=== PATIENT | female | born 1995 | race Caucasian/White ===

== ENCOUNTER 2020-01-31 23:28 | Emergency (ER) | payer SELFPAY ==
[2020-01-31 23:57] VITALS: BP 115/72; PULSE 86; RESP 16; TEMP 36.6; O2SAT 100; BMI 21.9
--- NOTE | 2020-01-31 23:59 | ED_ITS ---
HPI - General Adult General: Chief complaint: Chest Pain Stated complaint: fast hr, cp Time Seen by Provider: 01/31/20 23:59 Source: patient Mode of arrival: ambulatory Limitations: no limitations History of Present Illness: HPI narrative: Patient comes in this evening for complaints of chest discomfort. Patient reports having a knot on her chest that is tender to touch. Patient appears anxious but in no acute distress. Patient appears well. Patient appears in mild pain. Associated symptoms: Reports chest pain Review of Systems General: Reports: 10 or more systems reviewed and unremarkable except in HPI and below Card: Reports: chest pain PFSH ED PFSH: Social History Smoking and tobacco status: current every day smoker Physical Exam Const: COMMON NORMALS: no apparent distress and oriented x3 GENERAL APPEARANCE: cooperative HENMT: COMMON NORMALS: normocephalic, TM's normal bilaterally and external nose normal HEAD & SCALP: normal to inspection and normocephalic NOSE: external nose normal TYMPANIC MEMBRANE: TM's normal bilaterally MOUTH: oral and palatal mucosa normal THROAT: posterior oropharynx normal Eye: GENERAL EYE: normal appearance of both eyes Neck/C-Spine: COMMON NORMALS: full ROM Lymph: LYMPHATIC: no lymphadenopathy noted Chest: CHEST: Yes tenderness (Along the sternal intercostal space of the third rib) Resp: COMMON NORMALS: normal respiratory effort EFFORT & INSPECTION: Yes able to speak in complete sentences Cardio: COMMON NORMALS: regular rate and regular rhythm RATE: regular rate RHYTHM: regular rhythm GI: COMMON NORMALS: non-tender : COMMON NORMALS: Yes no CVA tenderness BLADDER/KIDNEY EXAM: Yes no CVA tenderness Back/Pelvis: COMMON NORMALS: no CVA tenderness and thoracic and lumbar spine normal to inspection Extremity: COMMON NORMALS: normal to inspection Neuro: COMMON NORMALS: oriented x3 and moves all extremities Psych: COMMON NORMALS: mental status grossly normal and cooperative Skin: COMMON NORMALS: no rashes or lesions noted GENERAL SKIN EXAM: no rashes or lesions noted Course Vital Signs: Vital signs: Vital Signs Temperature 97.8 F 01/31/20 23:57 Pulse Rate 75 02/01/20 00:58 Respiratory Rate 18 02/01/20 00:58 Blood Pressure 100/76 02/01/20 00:58 Pulse Oximetry 99 02/01/20 00:58 MDM - General Adult MDM Narrative: Medical decision making narrative: Patient comes in today for complaints of left chest wall pain. Exam notes reproducible pain to the sternal intercostal space of the 3rd-4th rib. Lungs are clear to auscultation. Skin is warm and dry. Vital signs are normal. Differential diagnosis includes ACS, PE, pneumonia, intercostal pain. Chest x-ray was normal. Heart rate was regular. EKG was normal. Laboratory values noted no increase in white blood cell count or renal dysfunction. D-dimer was negative. hCG was negative. Patient was given a dose of Toradol for costochondritis pain and instructed to use Tylenol and ibuprofen otherwise for pain. Patient was placed to home and recommended follow-up with primary care. Patient reported understanding and agreed to plan. Lab Data: Labs: Lab Results 02/01/20 02/01/20 02/01/20 Range/Units 00:13 00:13 00:13 WBC 5.6 (4.0-10.0) 10^3/ uL RBC 4.23 (4.1-5.3) 10^6/u L Hgb 11.6 (11.5-15.3) g/dL Hct 36.8 L (37.0-47.0) % MCV 87.0 (81-99) fL MCH 27.4 L (28.0-34.0) pg MCHC 31.5 (30.0-36.0) g/dL RDW 13.4 (12.1-15.1) % Plt Count 266 (130-400) 10^3/c mm MPV 8.8 (7.4-10.4) fL Neut % (Auto) 37.5 % Lymph % (Auto) 50.3 % [place] % (Auto) 10.2 % Eos % (Auto) 1.4 % Baso % (Auto) 0.4 % Neut # (Auto) 2.1 (1.8-7.7) 10^3/u L Lymph # (Auto) 2.8 (0.8-4.8) 10^3/u L [place] # (Auto) 0.6 (0.2-0.9) 10^3/u L Eos # (Auto) 0.1 (0.0-0.8) 10^3/u L Baso # (Auto) 0.0 (0.0-0.1) 10^3/u L Nucleated RBC % (a uto) 0 % Nucleated RBCs # 0.0 /100WBC D-Dimer <= 0.27 (0-0.59) ug/mIFE U Sodium 139 (136-145) mmol/L Potassium 3.9 (3.5-5.1) mmol/L Chloride 100 (98-107) mmol/L Carbon Dioxide 30 H (22-29) mmol/L Anion Gap 12.9 (5-19) BUN 13 (6-20) mg/dL Creatinine 0.7 (0.5-0.9) mg/dL GFR Calculation 101.1 (90-130) mL/min Glucose 98 (65-115) mg/dL Calculated Osmolal ity 284 L (285-295) mOsm/k g Calcium 9.3 (8.5-10.5) mg/dL Total Bilirubin 0.2 (0.15-1.2) mg/dL AST 15 (0-32) U/L ALT 14 (0-33) U/L Alkaline Phosphata se 60 (35-105) IU/L Total Protein 6.4 L (6.6-8.7) g/dL Albumin 4.1 (3.5-5.2) g/dL Globulin 2.3 (1.3-4.6) g/dL HCG, Qual (Negative) 02/01/20 Range/Units 00:13 WBC (4.0-10.0) 10^3/ uL RBC (4.1-5.3) 10^6/u L Hgb (11.5-15.3) g/dL Hct (37.0-47.0) % MCV (81-99) fL MCH (28.0-34.0) pg MCHC (30.0-36.0) g/dL RDW (12.1-15.1) % Plt Count (130-400) 10^3/c mm MPV (7.4-10.4) fL Neut % (Auto) % Lymph % (Auto) % [place] % (Auto) % Eos % (Auto) % Baso % (Auto) % Neut # (Auto) (1.8-7.7) 10^3/u L Lymph # (Auto) (0.8-4.8) 10^3/u L [place] # (Auto) (0.2-0.9) 10^3/u L Eos # (Auto) (0.0-0.8) 10^3/u L Baso # (Auto) (0.0-0.1) 10^3/u L Nucleated RBC % (a uto) % Nucleated RBCs # /100WBC D-Dimer (0-0.59) ug/mIFE U Sodium (136-145) mmol/L Potassium (3.5-5.1) mmol/L Chloride (98-107) mmol/L Carbon Dioxide (22-29) mmol/L Anion Gap (5-19) BUN (6-20) mg/dL Creatinine (0.5-0.9) mg/dL GFR Calculation (90-130) mL/min Glucose (65-115) mg/dL Calculated Osmolal ity (285-295) mOsm/k g Calcium (8.5-10.5) mg/dL Total Bilirubin (0.15-1.2) mg/dL AST (0-32) U/L ALT (0-33) U/L Alkaline Phosphata se (35-105) IU/L Total Protein (6.6-8.7) g/dL Albumin (3.5-5.2) g/dL Globulin (1.3-4.6) g/dL HCG, Qual Negative (Negative) EKG Data^: EKG 1: Attestation: I personally reviewed and interpreted this EKG as follows: (0025,NSR, rate 74 bpm, regular, no ectopy or ST elevation) Discharge Plan Discharge Patient Disposition: Home, Self-Care Clinical Impression: Atypical chest pain, Costalchondritis Condition: Stable Discharge Orders: Discharge Order (Routine); Ordered 02/01/20 Ordered By: Ervin Rob Discharge Diet: Usual diet Discharge Activity: Increase activity as tolerated Patient Instructions: Costochondritis (ED) Activity Restrictions/Additional Instructions: Home and rest, drink plenty of water, activity as tolerated. Return to the ER for high fever or increased shortness of breath. Follow-up with primary care in 1 week as needed. Coding Level of Care Code ED [employer] Finisher for Sailajag Fwd Exam Comprehensive
[2020-02-01] VITALS (17 sets, daily range): BP systolic 97–108; BP diastolic 57–78; PULSE 71–96; RESP 8–18; O2SAT 95–99
--- NOTE | 2020-02-01 00:03 | XR_ITS ---
WS: [id number] PORTABLE CHEST HISTORY: cp COMPARISON: 09/23/2019 Lungs are clear and well expanded. No pleural effusion or pneumothorax. Cardiac size: Normal. Mediastinum/Aorta: Normal mediastinum. No osseous abnormality seen. XR/XR chest 1V portable [id number] IMPRESSION: Unremarkable portable chest.
[2020-02-01 00:22] LABS: Basophils % 0.4 %; Eosinophils # 0.1 10^3/uL (0.0-0.8); Eosinophils % 1.4 %; Hematocrit 36.8 % (37.0-47.0); Hemoglobin 11.6 g/dL (11.5-15.3); Lymphocytes # 2.8 10^3/uL (0.8-4.8); Lymphocytes % 50.3 %; Mean Corpuscular HGB Conc 31.5 g/dL (30.0-36.0); Mean Corpuscular Hemoglobin 27.4 pg (28.0-34.0); Mean Platelet Volume 8.8 fL (7.4-10.4); Monocytes # 0.6 10^3/uL (0.2-0.9); Monocytes % 10.2 %; Neutrophils # 2.1 10^3/uL (1.8-7.7); Neutrophils % 37.5 %; Nucleated Red Blood Cells % 0 %; Platelet Count 266 10^3/cmm (130-400); Red Blood Count 4.23 10^6/uL (4.1-5.3); Red Cell Distribution Width 13.4 % (12.1-15.1); White Blood Count 5.6 10^3/uL (4.0-10.0)
[2020-02-01 00:38] LABS: D Dimer <= 0.27 ug/mIFEU (0-0.59)
[2020-02-01 00:43] LABS: Alanine Aminotransferase 14 U/L (0-33); Albumin Level 4.1 g/dL (3.5-5.2); Alkaline Phosphatase 60 IU/L (35-105); Anion Gap 12.9 (5-19); Aspartate Amino Transferase 15 U/L (0-32); Blood Urea Nitrogen 13 mg/dL (6-20); Calcium 9.3 mg/dL (8.5-10.5); Carbon Dioxide 30 mmol/L (22-29); Chloride 100 mmol/L (98-107); Globulin 2.3 g/dL (1.3-4.6); Glomerular Filtration Rate 101.1 mL/min (90-130); Glucose 98 mg/dL (65-115); Osmolality Calculated 284 mOsm/kg (285-295); Potassium 3.9 mmol/L (3.5-5.1); Sodium 139 mmol/L (136-145); Total Bilirubin 0.2 mg/dL (0.15-1.2); Total Protein 6.4 g/dL (6.6-8.7)
[2020-02-01 00:52] LABS: HCG, Serum Qual Negative (Negative)
[2020-02-01 01:29] LABS: Amphetamines Screen Urine Positive (Negative); Barbiturates Screen Urine Negative (Negative); Benzodiazepines Screen Urine Negative (Negative); Cocaine Screen Urine Negative (Negative); Opiate Screen Urine Negative (Negative); PCP Screen Urine Negative (Negative); THC Screen Urine Negative (Negative)
[2020-02-01 01:31] LABS: Protein Urine Neg (Negative); Urine Appearance Cloudy (CLEAR); Urine Color Yellow (Yellow); pH Urine 7 (5-7)
[2020-02-01 01:32] LABS: Add Urine Microscopic? YES; Bacteria Urine 1+; Bilirubin Urine Neg (NEGATIVE); Blood Urine Neg (Negative); Calcium Oxalate Crystals Urine 0-4 /hpf; Glucose Urine UA Norm (Normal); Ketones Urine Negative (Negative); Leukocyte Esterase Urine Negative (Negative); Mucus Urine 2+; Nitrate Urine Negative (Negative); RBC Urine 0-4 /hpf (0-2); Squamous Epithelial Cell Urine 0-4 (0-5); Urobilinogen Urine Norm (Negative)
[2020-02-01] MEDS: ketorolac 30 mg/mL INJ IM (01:35)
== END 2020-02-01 02:08 | disposition home or self-care (01) ==
PROVIDERS: Emergency Provider Nurse Practitioner Family
DX: R07.89 Other chest pain (principal); M94.0 Chondrocostal junction syndrome [Tietze]; F17.210 Nicotine dependence, cigarettes, uncomplicated
CPT/HCPCS: 12345; 36415; 71045; 80053; 80306; 81001; 84703; 85025; 85378; 96372; 99283; J1885

== ENCOUNTER 2020-02-10 15:45 | Emergency (ER) | payer SELFPAY ==
[2020-02-10 15:50] VITALS: BP 153/90; PULSE 103; RESP 16; TEMP 36.2; O2SAT 99; BMI 20.5
--- NOTE | 2020-02-10 16:32 | XRR_ITS ---
PROCEDURE INFORMATION: Exam: XR Right Foot Exam date and time: 02/10/2020 4:35 PM Age: 24 years old Clinical indication: Pain; Foot; Right; Additional info: States stepped on fb bug stung her on the buttom of foot TECHNIQUE: Imaging protocol: XR Right foot. Views: 1 or 2 views. COMPARISON: No relevant prior studies available. FINDINGS: Bones/joints: Normal. Soft tissues: Normal. XR/XR foot RT 2V [id number] IMPRESSION: No acute findings.
[2020-02-10] MEDS: sulfamethoxazole-trimeth DS 160-800 mg Tablet 1 TAB PO (16:47)
--- NOTE | 2020-02-10 16:48 | W.ED.SKABFB ---
HPI - Skin/Abscess/Foreign Bdy General: Chief complaint: Skin/Abscess/Foreign Body Stated complaint: poss allergic reation Time Seen by Provider: 02/10/20 15:58 Source: patient Mode of arrival: ambulatory History of Present Illness: HPI narrative: pt states she stepped on something while remodeling her room about 30 min ago. She states she feels like she is burning all over her body Tetanus up to date: yes Pain Consistency: intermittent Treatments prior to arrival: Benadryl and corticosteroid Review of Systems General: Reports: 10 or more systems reviewed and unremarkable except in HPI and below Skin/Breast: Reports: sores (pt states she has sores all over her body and her right foot) Psych: Reports: anxiety and paranoia PFS ED PFSH: Social History Smoking and tobacco status: current every day smoker Female Reproductive History: Date of last menstrual period: 01/17/20 Physical Exam Const: COMMON NORMALS: no apparent distress, oriented x3, no limitations and alert GENERAL APPEARANCE: cooperative and comfortable ORIENTATION/CONSCIOUSNESS: Yes awake, Yes oriented to person, Yes oriented to place and Yes oriented to time HENMT: COMMON NORMALS: normocephalic, head/scalp atraumatic, external ears normal, EAC's normal, TM's normal bilaterally and external nose normal HEAD & SCALP: normal to inspection, normocephalic and atraumatic FACE & SINUS: normal facial exam, sinuses nontender and face symmetric NOSE: external nose normal, nares normal and no nasal discharge EXTERNAL EAR: Yes external ears normal EXTERNAL AUDITORY CANAL: EAC's normal TYMPANIC MEMBRANE: TM's normal bilaterally MOUTH: oral and palatal mucosa normal, lip normal and tongue normal THROAT: posterior oropharynx normal, tonsils normal and uvula midline Eye: COMMON NORMALS: PERRL, EOMs intact bilaterally and conjunctivae normal GENERAL EYE: normal appearance of both eyes and normal light reflex EYELID: eyelids normal CONJUNCTIVA: Yes conjunctivae normal PUPIL: Yes PERRL EOM: Yes EOM abnormal DIRECT OPHTHALMOSCOPY: Yes normal light reflex Neck/C-Spine: COMMON NORMALS: full ROM, no lymphadenopathy, supple, no meningeal signs, no JVD and thyroid normal GENERAL: Yes normal visual inspection THYROID: thyroid normal CERVICAL SPINE: Yes cervical ROM normal and Yes normal cervical lordosis Lymph: LYMPHATIC: no lymphadenopathy noted Chest: COMMONS NORMALS: inspection of chest normal and palpation of chest normal Resp: COMMON NORMALS: normal respiratory effort, no retractions and clear to auscultation bilaterally AUSCULTATION: clear to auscultation bilaterally Cardio: COMMON NORMALS: no JVD, regular rate, regular rhythm, S1 normal heart sound, S2 normal heart sound, no gallops, no clicks, no murmurs, no rub and peripheral pulses 2+ throughout RATE: regular rate RHYTHM: regular rhythm HEART SOUNDS: S1 normal and S2 normal PERIPHERAL PULSES: pulses 2+ throughout GI: COMMON NORMALS: normal to inspection, nondistended, normoactive bowel sounds, soft to palpation, non-tender and no masses PALPATION: Yes soft : COMMON NORMALS: Yes no CVA tenderness and Yes external appearance normal BLADDER/KIDNEY EXAM: Yes no CVA tenderness Back/Pelvis: COMMON NORMALS: no CVA tenderness, thoracic and lumbar spine normal to inspection, no thoracic nor lumbar tenderness and thoraco-lumbar ROM normal Extremity: COMMON NORMALS: normal to inspection, full ROM, normal capillary refill, no joint enlargement, no clubbing, cyanosis or edema, no calf tenderness and no pedal edema GENERAL: Yes normal exam except as noted Neuro: COMMON NORMALS: oriented x3, moves all extremities, no focal motor deficits, no sensory deficits noted and gait normal SENSORIUM/ORIENTATION: Yes alert, Yes oriented to person, Yes oriented to place and Yes oriented to time MENINGEAL SIGNS: Yes no meningeal signs Psych: COMMON NORMALS: mental status grossly normal, thought process normal, cooperative, affect normal, speech normal and activity/motor behavior normal SPEECH: Yes normal speech THOUGHT PROCESS: normal thought process Skin: COMMON NORMALS: no rashes or lesions noted, no wounds and skin turgor normal SKIN IMAGES (FEMALE): 1. small lesion that pt is picking at with tweezers upon examination GENERAL SKIN EXAM: no rashes or lesions noted and turgor normal OTHER: Pt is picking at right foot with tweezers stating something is in her foot. No FB noted upon examination. Course ED course: Pt is visibly shaking upon assessment and states I am not on drugs or anything as she explains that she stepped on something while remodeling her room thirty minutes ago. She has tweezers and is picking at a small lesion on her abdomen distal to umbilicus. Uncertain if this is chronic or new. No fever. Xrays ordered to rule out FB. Vital Signs: Vital signs: Vital Signs Temperature 97.2 F L 02/10/20 15:50 Pulse Rate 103 H 02/10/20 15:50 Respiratory Rate 16 02/10/20 15:50 Blood Pressure 153/90 02/10/20 15:50 Pulse Oximetry 99 02/10/20 15:50 MDM - Skin/Abscess/Foreign Bdy Imaging Data^: Other Xray: My impression: Negative for FB Discharge Plan Discharge Patient Disposition: Home, Self-Care Clinical Impression: Abscess of skin or subcutaneous tissue Condition: Stable Prescriptions: New sulfamethoxazole-trimethoprim [Bactrim DS] 800-160 mg tablet 1 tab PO BID 7 Days Qty: 14 RF: 0 Discharge Diet: Usual diet Discharge Activity: Resume usual activity Activity Restrictions/Additional Instructions: Do not pick or squeeze your skin or any open areas. Clean open wounds daily and cover with bandaid. Coding Level of Care Code ED [employer] Vessel Pilot for Brian Fwchristelle Exam Comprehensive
--- NOTE | 2020-02-10 16:50 | PC.NURSE ---
patient declined ativan stated she did not want to be sedated
[2020-02-10 17:34] VITALS: BP 130/78; PULSE 104; RESP 17; O2SAT 99
[2020-02-10 17:46] LABS: Add Urine Microscopic? YES; Bilirubin Urine Neg (NEGATIVE); Blood Urine Neg (Negative); Glucose Urine UA Norm (Normal); Ketones Urine Negative (Negative); Leukocyte Esterase Urine Trace (Negative); Nitrate Urine Negative (Negative); Protein Urine Neg (Negative); Specific Gravity, Urine 1.005 (1.005-1.030); Sulfosalicylic Acid Urine Negative (Negative); Urine Appearance Clear (CLEAR); Urine Color Straw (Yellow); Urobilinogen Urine Norm (Negative); pH Urine 8 (5-7)
[2020-02-10 17:47] LABS: Add Urine Culture? No; Amphetamines Screen Urine Positive (Negative); Bacteria Urine TRACE; Barbiturates Screen Urine Negative (Negative); Benzodiazepines Screen Urine Negative (Negative); Cocaine Screen Urine Negative (Negative); Mucus Urine TRACE; Opiate Screen Urine Negative (Negative); PCP Screen Urine Negative (Negative); THC Screen Urine Negative (Negative); Trichomonas Urine 1+
== END 2020-02-10 17:34 | disposition home or self-care (01) ==
PROVIDERS: Emergency Provider Nurse Practitioner Family
DX: L02.211 Cutaneous abscess of abdominal wall (principal); F17.210 Nicotine dependence, cigarettes, uncomplicated
CPT/HCPCS: 12345; 73620; 80306; 81001; 99281; 99283

== ENCOUNTER 2020-02-12 02:19 | Emergency (ER) | payer SELFPAY ==
[2020-02-12] VITALS (10 sets, daily range): BP systolic 121–138; BP diastolic 81–96; PULSE 106; RESP 18; TEMP 36.5; O2SAT 96–100; BMI 20.5
--- NOTE | 2020-02-12 02:46 | ED_ITS ---
HPI - Allergic Reaction General: Chief complaint: Allergic Reaction Stated complaint: allergic reaction Time Seen by Provider: 02/12/20 02:36 History of Present Illness: HPI narrative: 24-year-old female was seen yesterday for a puncture wound. She states that she was having some of these symptoms yesterday. She presents this morning with skin redness, itching, burning sensations, swelling around her eyes, and of her lips. She states that it is difficult to swallow. She is not really having trouble breathing at this point. MD complaint: allergic reaction Onset (ago): day(s) (1) Associated symptoms: Reports abdominal pain, difficulty swallowing, itching and lip swelling; Deny difficulty breathing, dizziness or tongue swelling Treatment prior to arrival: jared Review of Systems Const: Denies: fever or chills Eyes: Denies: change in vision or blurry vision ENMT: Reports: swelling of lips/tongue; Denies: bleeding gums, dental pain, Change in hearing, post nasal drip or facial/sinus pain Card: Denies: chest pain, palpitations, irregular heart rhythm or edema Resp: Denies: shortness of breath, productive cough, non-productive cough or wheezing GI: Reports: abdominal pain and difficulty swallowing : Denies: painful urination or blood in urine Musc: Denies: neck pain, back pain, redness or joint warmth Skin/Breast: Denies: rash, itching or redness Neuro: Denies: headache, dizziness or vertigo Psych: Reports: anxiety All/Imm: Denies: tongue swelling PFSH ED PFSH: Social History Smoking and tobacco status: current every day smoker Female Reproductive History: Date of last menstrual period: 12/31/19 Physical Exam Const: GENERAL APPEARANCE: well developed ORIENTATION/CONSCIOUSNESS: Yes oriented to person, Yes oriented to place and Yes oriented to time HENMT: COMMON NORMALS: normocephalic, external ears normal and external nose normal HEAD & SCALP: normocephalic FACE & SINUS: normal facial exam NOSE: external nose normal and no nasal discharge EXTERNAL EAR: Yes external ears normal THROAT: posterior oropharynx normal; no peritonsillar mass Eye: COMMON NORMALS: PERRL, EOMs intact bilaterally and conjunctivae normal EYELID: eyelids normal CONJUNCTIVA: Yes conjunctivae normal PUPIL: Yes PERRL Neck/C-Spine: GENERAL: No tracheal deviation Chest: COMMONS NORMALS: inspection of chest normal CHEST: No tenderness Resp: COMMON NORMALS: clear to auscultation bilaterally EFFORT & INSPECTION: No tachypneic, No respiratory distress, No retractions, No uses accessory muscles and No tracheal deviation AUSCULTATION: clear to auscultation bilaterally, no rhonchi, no wheezes and lung sounds not diminished Cardio: COMMON NORMALS: regular rate and regular rhythm RATE: regular rate RHYTHM: regular rhythm HEART SOUNDS: no murmurs PERIPHERAL PULSES: radial pulses present GI: INSPECTION: No abdominal distension AUSCULTATION: No hyperactive bowel sounds and No hypoactive bowel sounds PALPATION: No guarding and No rigid PERCUSSION: no dullness to percussion and no tympanic to percussion Neuro: SENSORIUM/ORIENTATION: Yes oriented to person, Yes oriented to place and Yes oriented to time Psych: COMMON NORMALS: mental status grossly normal Skin: GENERAL SKIN EXAM: erythema (Diffuse to stomach, back, bilateral legs, and periorbital areas.) LESIONS: no lesions (Several small skin ulcerations.) Course Vital Signs: Vital signs: Vital Signs Temperature 97.7 F 02/12/20 02:27 Pulse Rate 106 H 02/12/20 02:27 Respiratory Rate 18 02/12/20 02:27 Blood Pressure 121/90 02/12/20 03:30 Pulse Oximetry 96 02/12/20 03:45 MDM - Allergic Reaction MDM Narrative: Medical decision making narrative: Rash, itching, burning, and swollen feeling in throat is much improved per patient. Her vitals remain good. She did not have to get epinephrine. She just started Bactrim, but Bactrim typically causes a delayed hypersensitivity, and she likely has not had enough doses of it to cause this. She reports symptoms before starting the Bactrim as well. This is likely a reaction to a substance contained in what ever illicit substance she was taking such as methamphetamine. Discharge Plan Discharge Patient Disposition: Home, Self-Care Clinical Impression: Allergic reaction Qualifiers: Encounter type: initial encounter Qualified Code(s): T78.40XA - Allergy, unspecified, initial encounter Condition: Stable Prescriptions: New Medrol (Adeel) 4 mg tablets,dose pack See Rx Instructions .ROUTE .COMPLEX Qty: 21 RF: 0 Zyrtec 10 mg capsule 10 mg PO DAILY Qty: 14 RF: 0 Benadryl 25 mg capsule 25 mg PO Q6H Qty: 20 RF: 0 No Action sulfamethoxazole-trimethoprim [Bactrim DS] 800-160 mg tablet 1 tab PO BID 7 Days Qty: 14 RF: 0 Discharge Orders: Discharge Order (Routine); Ordered 02/12/20 Ordered By: Bryon Christianson Discharge Diet: Usual diet Discharge Activity: Increase activity as tolerated Patient Instructions: Allergic Reaction Activity Restrictions/Additional Instructions: Return to the ER for trouble breathing, tightness in the throat, drooling, lip or tongue swelling, other concerning symptoms. Medications as directed. 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
--- NOTE | 2020-02-12 02:48 | XR_ITS ---
WS: [id number] PORTABLE CHEST HISTORY: allergic reaction COMPARISON: 02/01/2020 Lungs are clear and well expanded. No pleural effusion or pneumothorax. Cardiac size: Normal. Mediastinum/Aorta: Normal mediastinum. No osseous abnormality seen. XR/XR chest 1V portable [id number] IMPRESSION: Unremarkable portable chest.
[2020-02-12] MEDS: diphenhydrAMINE 50 mg/mL SDV 1mL 25 MG IVP (03:38)
[2020-02-12] MEDS: ondansetron 2 mg/ML SDV 2 mL 4 MG IM (03:39)
[2020-02-12] MEDS: famotidine 20 mg/2 mL INJ IVP (03:39)
== END 2020-02-12 03:50 | disposition home or self-care (01) ==
PROVIDERS: Emergency Provider Emergency Medicine
DX: T78.40XA Allergy, unspecified, initial encounter (principal); F17.210 Nicotine dependence, cigarettes, uncomplicated
CPT/HCPCS: 12345; 71045; 96372; 96374; 96375; 99282; 99283; J1200; J2405; J2930; J3490

== ENCOUNTER 2020-03-29 18:46 | Emergency (ER) | payer SELFPAY ==
[2020-03-29 18:52] VITALS: BP 151/104; PULSE 85; RESP 18; TEMP 36.4; O2SAT 100; BMI 21.9
--- NOTE | 2020-03-29 21:07 | ED_ITS ---
HPI - Allergic Reaction General: Chief complaint: Allergic Reaction Stated complaint: poss allergic reaction Time Seen by Provider: 03/29/20 20:56 History of Present Illness: HPI narrative: 24-year-old female presents with widespread rash, itching and burning sensation, some swelling to the lips prior to arrival, and trouble breathing. MD complaint: allergic reaction and hives Onset (ago): hour(s) Associated symptoms: Reports difficulty breathing, lip swelling, nausea and tongue swelling; Deny dizziness or vomiting Severity: moderate Treatment prior to arrival: benadryl (x4) Review of Systems Const: Denies: fever(s) or chills Eyes: Denies: change in vision or blurry vision ENMT: Reports: swelling of lips/tongue and dental pain; Denies: bleeding gums, change in hearing, epistaxis, post nasal drip or sinus pain Card: Denies: chest pain, palpitations, irregular heart rhythm or dyspnea on exertion Resp: Reports: wheezing; Denies: dyspnea, productive cough or non-productive cough GI: Reports: nausea; Denies: vomiting : Denies: dysuria, urinary frequency, urinary urgency or hematuria Musc: Denies: neck pain, back pain, joint redness or joint warmth Skin/Breast: Reports: rash, pruritus and erythema Neuro: Denies: headache(s) or dizziness Psych: Denies: anxiety All/Imm: Reports: tongue swelling PFSH ED PFSH: Social History Smoking and tobacco status: current every day smoker Female Reproductive History: Date of last menstrual period: 12/31/19 Physical Exam Const: GENERAL APPEARANCE: disheveled ORIENTATION/CONSCIOUSNESS: Yes oriented to person, Yes oriented to place and Yes oriented to time HENMT: COMMON NORMALS: normocephalic, external ears normal and Normal external nose present HEAD & SCALP: normocephalic FACE & SINUS: normal facial exam NOSE: Normal external nose present and No nasal discharge present EXTERNAL EAR: Yes external ears normal MOUTH: tongue normal TEETH & GINGIVA: no abnormal tooth and associated gingiva Eye: COMMON NORMALS: Equal, round and reactive pupils present EYELID: eyelids normal PUPIL: Yes Equal, round and reactive pupils present Neck/C-Spine: GENERAL: No tracheal deviation Chest: COMMONS NORMALS: normal inspection of the chest CHEST: No tenderness Resp: COMMON NORMALS: clear to auscultation bilaterally EFFORT & INSPECTION: No tachypneic, No respiratory distress, No retractions, No uses accessory muscles and No tracheal deviation AUSCULTATION: clear to auscultation bilaterally, no rhonchi, no wheezes and lung sounds not diminished Cardio: COMMON NORMALS: regular rate and regular rhythm RATE: regular rate RHYTHM: regular rhythm HEART SOUNDS: no murmurs PERIPHERAL PULSES: radial pulses present GI: INSPECTION: No abdominal distension AUSCULTATION: No Hyperactive bowel sounds present and No Hypoactive bowel sounds present PALPATION: No Guarding due to palpation present (GI) and No Rigid due to palpation PERCUSSION: no dullness to percussion and no tympanic to percussion : COMMON NORMALS: Yes no CVA tenderness BLADDER/KIDNEY EXAM: Yes no CVA tenderness Back/Pelvis: COMMON NORMALS: no CVA tenderness Neuro: SENSORIUM/ORIENTATION: Yes oriented to person, Yes oriented to place and Yes oriented to time Psych: COMMON NORMALS: mental status grossly normal Skin: GENERAL SKIN EXAM: erythema and other (Fine, widespread urticarial rash.) Course Vital Signs: Vital signs: Vital Signs Temperature 97.5 F L 03/29/20 18:52 Pulse Rate 80 03/29/20 22:14 Respiratory Rate 14 03/29/20 22:14 Blood Pressure 120/70 03/29/20 22:14 Pulse Oximetry 100 03/29/20 22:14 MDM - Allergic Reaction MDM Narrative: Medical decision making narrative: 24-year-old female presents for the second time with report of widespread rash, itching, burning, with a history of lip swelling. Epinephrine was not given. She did have for Benadryl at home, and refused a Benadryl injection here. She has had steroids. She is doing better, and not short of breath. She states her swelling and full feeling in the back of her throat is gone. She will be discharged Discharge Plan Discharge Patient Disposition: Home, Self-Care Clinical Impression: Allergic reaction Qualifiers: Encounter type: initial encounter Qualified Code(s): T78.40XA - Allergy, unspecified, initial encounter Condition: Stable Prescriptions: New Zyrtec 10 mg capsule 10 mg PO DAILY PRN (Reason: allergy symptoms) Qty: 14 RF: 0 Medrol (Adeel) 4 mg tablets,dose pack See Rx Instructions .ROUTE .COMPLEX Qty: 21 RF: 0 Benadryl 25 mg capsule 25 mg PO Q6H PRN (Reason: allergic reaction) Qty: 30 RF: 0 No Action Medrol (Adeel) 4 mg tablets,dose pack See Rx Instructions .ROUTE .COMPLEX Qty: 21 RF: 0 Zyrtec 10 mg capsule 10 mg PO DAILY Qty: 14 RF: 0 Benadryl 25 mg capsule 25 mg PO Q6H Qty: 20 RF: 0 Discharge Orders: Discharge Order (Routine); Ordered 03/29/20 Ordered By: Bryon Christianson Discharge Diet: Usual diet Discharge Activity: Resume usual activity Patient Instructions: Allergic Reaction Activity Restrictions/Additional Instructions: Return for worsening swelling to the legs, lips, throat, etc. Return for other concerning symptoms such as shortness of breath, worsening rash, etc Medications as directed Discharge Date/Time: 03/29/20 22:14 Coding Level of Care Code ED Senior Qualitative Researcher for Brian Harvey
[2020-03-29] MEDS: predniSONE 20 mg Tablet 60 MG PO (21:30)
--- NOTE | 2020-03-29 21:43 | PC.NURSE ---
During med adm, pt states she has already taken four benadryl pills before I got here . notified. After Dr modified dose, pt refusing IM injection stating It hurts too bad . notified. Pt to be d/c with rx
[2020-03-29 22:14] VITALS: BP 120/70; PULSE 80; RESP 14; O2SAT 100
--- NOTE | 2020-03-29 22:14 | PC.NURSE ---
i agree with this assessment
== END 2020-03-29 22:14 | disposition home or self-care (01) ==
PROVIDERS: Emergency Provider Emergency Medicine
DX: T78.40XA Allergy, unspecified, initial encounter (principal); X58.XXXA Exposure to other specified factors, initial encounter; F17.210 Nicotine dependence, cigarettes, uncomplicated
CPT/HCPCS: 12345; 99281; 99283; J7512

== ENCOUNTER 2020-04-10 15:10 | Emergency (ER) | payer SELFPAY ==
[2020-04-10 15:30] VITALS: BP 106/76; PULSE 101; RESP 16; TEMP 36.9; O2SAT 99; BMI 22.8
--- NOTE | 2020-04-10 15:48 | W.ED.URI ---
HPI - URI/Sore Throat General: Chief Complaint: Upper Respiratory Infection Stated Complaint: sore throat/swollen Time Seen by Provider: 04/10/20 15:48 Source: patient Mode of arrival: ambulatory Limitations: no limitations History of Present Illness: HPI Narrative: Patient comes in today for complaints of sore throat for the last 3 days. Patient states that she is been using some amoxicillin for the last 2 days 500 mg 3 times a day thinking she may have like a strep infection. Patient states minimal relief in her discomfort. Review of Systems General: Reports: 10 or more systems reviewed and unremarkable except in HPI and below Musc: Reports: back pain PFS ED PFSH: Social History Smoking and tobacco status: current every day smoker Female Reproductive History: Date of last menstrual period: 12/31/19 Physical Exam Const: COMMON NORMALS: no acute distress and patient oriented x3 GENERAL APPEARANCE: cooperative HENMT: COMMON NORMALS: normocephalic and Normal external nose present HEAD & SCALP: normal to inspection and normocephalic NOSE: Normal external nose present MOUTH: Normal oral and palatal mucosa present THROAT: posterior oropharynx normal Eye: GENERAL EYE: appearance normal, both eyes and all related structures Neck/C-Spine: COMMON NORMALS: full ROM Lymph: LYMPHATIC: no lymphadenopathy noted Chest: COMMONS NORMALS: normal inspection of the chest Resp: COMMON NORMALS: normal respiratory effort EFFORT & INSPECTION: Yes able to speak in complete sentences Cardio: COMMON NORMALS: regular rate and regular rhythm RATE: regular rate RHYTHM: regular rhythm GI: COMMON NORMALS: non-tender : COMMON NORMALS: Yes no CVA tenderness BLADDER/KIDNEY EXAM: Yes no CVA tenderness Back/Pelvis: COMMON NORMALS: no CVA tenderness and thoracic and lumbar spine normal to inspection Extremity: COMMON NORMALS: normal to inspection Neuro: COMMON NORMALS: patient oriented x3 and moves all extremities Psych: COMMON NORMALS: mental status grossly normal and cooperative Skin: COMMON NORMALS: no rashes or lesions noted GENERAL SKIN EXAM: no rashes or lesions noted Course Vital Signs: Vital signs: Vital Signs Temperature 98.5 F 04/10/20 15:30 Pulse Rate 101 H 04/10/20 15:30 Respiratory Rate 16 04/10/20 15:30 Blood Pressure 106/76 04/10/20 15:30 Pulse Oximetry 99 04/10/20 15:30 MDM - URI/Sore Throat MDM Narrative: Medical decision making narrative: Patient comes in today for complaints of sore throat for 3 days. Patient states that she had started some amoxicillin she had leftover from a previous prescription 2 days ago. Patient comes in due to persistent symptoms. Differential diagnosis includes strep pharyngitis, upper respiratory infection, viral syndrome. Strep test was negative. Monospot was negative. Laboratory CBC and CMP were normal. Reviewed exam with patient recommended treatment with dexamethasone 10 mg p.o., continue amoxicillin, use Tylenol and ibuprofen otherwise for pain. Patient reports understanding agreed to plan. Lab Data: Labs: Lab Results 04/10/20 04/10/20 04/10/20 Range/Units 16:00 16:00 16:00 WBC 11.2 H (4.0-10.0) 10^3/ uL RBC 4.36 (4.1-5.3) 10^6/u L Hgb 12.3 (11.5-15.3) g/dL Hct 38.6 (37.0-47.0) % MCV 88.5 (81-99) fL MCH 28.2 (28.0-34.0) pg MCHC 31.9 (30.0-36.0) g/dL RDW 13.2 (12.1-15.1) % Plt Count 247 (130-400) 10^3/c mm MPV 9.2 (7.4-10.4) fL Neut % (Auto) 61.4 % Lymph % (Auto) 24.5 % [place] % (Auto) 12.6 % Eos % (Auto) 0.8 % Baso % (Auto) 0.4 % Neut # (Auto) 6.9 (1.8-7.7) 10^3/u L Lymph # (Auto) 2.8 (0.8-4.8) 10^3/u L [place] # (Auto) 1.4 H (0.2-0.9) 10^3/u L Eos # (Auto) 0.1 (0.0-0.8) 10^3/u L Baso # (Auto) 0.0 (0.0-0.1) 10^3/u L Nucleated RBC % (a uto) 0 % Nucleated RBCs # 0.0 /100WBC Sodium 135 L (136-145) mmol/L Potassium 3.5 (3.5-5.1) mmol/L Chloride 98 (98-107) mmol/L Carbon Dioxide 28 (22-29) mmol/L Anion Gap 12.5 (5-19) BUN 13 (6-20) mg/dL Creatinine 0.6 (0.5-0.9) mg/dL GFR Calculation 120.8 (90-130) mL/min Glucose 110 (65-115) mg/dL Calculated Osmolal ity 277 L (285-295) mOsm/k g Calcium 9.1 (8.5-10.5) mg/dL Total Bilirubin 0.2 (0.15-1.2) mg/dL AST 12 (0-32) U/L ALT 12 (0-33) U/L Alkaline Phosphata se 79 (35-105) IU/L Total Protein 7.0 (6.6-8.7) g/dL Albumin 4.3 (3.5-5.2) g/dL Globulin 2.7 (1.3-4.6) g/dL Monoscreen Negative (Negative) Group A Strep Rapi d (Negative) 04/10/20 Range/Units 16:09 WBC (4.0-10.0) 10^3/ uL RBC (4.1-5.3) 10^6/u L Hgb (11.5-15.3) g/dL Hct (37.0-47.0) % MCV (81-99) fL MCH (28.0-34.0) pg MCHC (30.0-36.0) g/dL RDW (12.1-15.1) % Plt Count (130-400) 10^3/c mm MPV (7.4-10.4) fL Neut % (Auto) % Lymph % (Auto) % [place] % (Auto) % Eos % (Auto) % Baso % (Auto) % Neut # (Auto) (1.8-7.7) 10^3/u L Lymph # (Auto) (0.8-4.8) 10^3/u L [place] # (Auto) (0.2-0.9) 10^3/u L Eos # (Auto) (0.0-0.8) 10^3/u L Baso # (Auto) (0.0-0.1) 10^3/u L Nucleated RBC % (a uto) % Nucleated RBCs # /100WBC Sodium (136-145) mmol/L Potassium (3.5-5.1) mmol/L Chloride (98-107) mmol/L Carbon Dioxide (22-29) mmol/L Anion Gap (5-19) BUN (6-20) mg/dL Creatinine (0.5-0.9) mg/dL GFR Calculation (90-130) mL/min Glucose (65-115) mg/dL Calculated Osmolal ity (285-295) mOsm/k g Calcium (8.5-10.5) mg/dL Total Bilirubin (0.15-1.2) mg/dL AST (0-32) U/L ALT (0-33) U/L Alkaline Phosphata se (35-105) IU/L Total Protein (6.6-8.7) g/dL Albumin (3.5-5.2) g/dL Globulin (1.3-4.6) g/dL Monoscreen (Negative) Group A Strep Rapi d Negative (Negative) Discharge Plan Discharge Patient Disposition: Home, Self-Care Clinical Impression: Pharyngitis Qualifiers: Pharyngitis/tonsillitis etiology: unspecified etiology Qualified Code(s): J02.9 - Acute pharyngitis, unspecified Condition: Stable Prescriptions: No Action Tylenol Extra Strength 500 mg Tablet 1,000 mg PO Q4H PRN (Reason: Pain) RF: 0 Discharge Diet: Usual diet Discharge Activity: Increase activity as tolerated Patient Instructions: Pharyngitis (ED) Activity Restrictions/Additional Instructions: Continue with amoxicillin 500 mg 3 times a day for 10 days. Use acetaminophen and ibuprofen for pain. Drink plenty of water with medications. Follow-up with primary care in 1 week. Return to the ER for worsening symptoms or new concerns. Coding Level of Care Code ED Sustainable Design Consultant for Brian Fwd Exam Comprehensive
[2020-04-10 16:08] LABS: Basophils % 0.4 %; Eosinophils # 0.1 10^3/uL (0.0-0.8); Eosinophils % 0.8 %; Hematocrit 38.6 % (37.0-47.0); Hemoglobin 12.3 g/dL (11.5-15.3); Lymphocytes # 2.8 10^3/uL (0.8-4.8); Lymphocytes % 24.5 %; Mean Corpuscular HGB Conc 31.9 g/dL (30.0-36.0); Mean Corpuscular Hemoglobin 28.2 pg (28.0-34.0); Mean Corpuscular Volume 88.5 fL (81-99); Mean Platelet Volume 9.2 fL (7.4-10.4); Monocytes # 1.4 10^3/uL (0.2-0.9); Monocytes % 12.6 %; Neutrophils # 6.9 10^3/uL (1.8-7.7); Neutrophils % 61.4 %; Nucleated Red Blood Cells % 0 %; Platelet Count 247 10^3/cmm (130-400); Red Blood Count 4.36 10^6/uL (4.1-5.3); Red Cell Distribution Width 13.2 % (12.1-15.1); White Blood Count 11.2 10^3/uL (4.0-10.0)
[2020-04-10 16:24] LABS: Rapid Strep A Test Negative (Negative)
[2020-04-10 16:27] LABS: Alanine Aminotransferase 12 U/L (0-33); Albumin Level 4.3 g/dL (3.5-5.2); Alkaline Phosphatase 79 IU/L (35-105); Anion Gap 12.5 (5-19); Aspartate Amino Transferase 12 U/L (0-32); Blood Urea Nitrogen 13 mg/dL (6-20); Calcium 9.1 mg/dL (8.5-10.5); Carbon Dioxide 28 mmol/L (22-29); Chloride 98 mmol/L (98-107); Globulin 2.7 g/dL (1.3-4.6); Glomerular Filtration Rate 120.8 mL/min (90-130); Glucose 110 mg/dL (65-115); Osmolality Calculated 277 mOsm/kg (285-295); Potassium 3.5 mmol/L (3.5-5.1); Sodium 135 mmol/L (136-145); Total Bilirubin 0.2 mg/dL (0.15-1.2)
[2020-04-10] MEDS: dexamethasone 4 mg Tablet 10 MG PO (16:28)
[2020-04-10 16:44] LABS: Monoscreen Negative (Negative)
[2020-04-10 17:00] VITALS: BP 101/69; PULSE 92; RESP 18; TEMP 36.9; O2SAT 98
== END 2020-04-10 17:02 | disposition home or self-care (01) ==
PROVIDERS: Emergency Provider Nurse Practitioner Family
DX: J02.9 Acute pharyngitis, unspecified (principal); F17.210 Nicotine dependence, cigarettes, uncomplicated
CPT/HCPCS: 12345; 36415; 80053; 85025; 86308; 87081; 87880; 99281; 99283; J8540

== ENCOUNTER 2020-06-01 15:35 | Emergency (ER) | payer SELFPAY ==
[2020-06-01 15:53] VITALS: BP 138/69; PULSE 100; RESP 18; TEMP 35.9; O2SAT 100; BMI 22.8
--- NOTE | 2020-06-01 16:04 | ECG_ITS ---
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 Measurements Intervals [place] Rate: 100 P: 64 WI: 132 QRS: 72 QRSD: 78 T: 67 QT: 327 QTc: 422 Interpretive Statements SINUS TACHYCARDIA ABNORMAL RHYTHM ECG Compared to ECG 10/13/2019 06:16:31 No significant changes Electronically Signed On 06-02-2020 18:10:46 CDT by Jens Corrales M.D. [id number] f
== END 2020-06-01 18:46 | disposition left against medical advice (07) ==
LOC: ER 15:39
PROVIDERS: Emergency Provider Emergency Medicine
DX: Z53.21 Procedure and treatment not carried out due to patient leaving prior to being seen by health care provider (principal)
CPT/HCPCS: 93005; 99281; 99282

== ENCOUNTER 2020-07-05 15:46 | Emergency (ER) | payer SELFPAY ==
[2020-07-05 16:08] VITALS: BP 116/82; PULSE 94; RESP 18; TEMP 36.9; O2SAT 100; BMI 20.5
[2020-07-05 17:21] LABS: Add Urine Microscopic? YES; Bilirubin Urine Neg (Negative); Blood Urine Neg (Negative); Glucose Urine UA Norm (Normal); Ketones Urine Negative (Negative); Leukocyte Esterase Urine Negative (Negative); Nitrate Urine Negative (Negative); Protein Urine Neg (Negative); Specific Gravity, Urine 1.015 (1.005-1.030); Sulfosalicylic Acid Urine Negative (Negative); Urine Appearance Hazy (CLEAR); Urine Color Yellow (Yellow); Urobilinogen Urine Norm (Negative); pH Urine 8 (5-7)
[2020-07-05 17:25] LABS: Add Urine Culture? No; Amorphous Sediment Urine 3+ /hpf; Bacteria Urine 1+ /hpf; Squamous Epithelial Cell Urine 0-4 /hpf (0-5); Trichomonas Urine 2+ /hpf
[2020-07-10 10:59] LABS: Chlamydia Trachomatis RNA TMA NOT DETECTED (NOT DETECTED); Neisseria Gonorrhoeae RNA, TMA NOT DETECTED (NOT DETECTED)
== END 2020-07-05 19:28 ==
LOC: ER 16:13
PROVIDERS: Nurse Practitioner Family; Emergency Provider Emergency Medicine
DX: Z53.21 Procedure and treatment not carried out due to patient leaving prior to being seen by health care provider (principal)
CPT/HCPCS: 81001; 87491; 87591; 99281; 99282

== ENCOUNTER → 2020-07-10 12:19 | Outpatient (BNVA) | payer SELFPAY | PROVIDERS: Visit Provider Family Medicine Adult Medicine | DX: R10.9 Unspecified abdominal pain (principal); R50.9 Fever, unspecified; A59.9 Trichomoniasis, unspecified | CPT/HCPCS: 81025; 85025; 87635 ==

== ENCOUNTER 2020-07-13 11:57 | Emergency (ER) | payer SELFPAY ==
--- NOTE | 2020-07-13 12:00 | W.ED.ABDPA2 ---
HPI - Abdominal Pain General: Chief Complaint: Abdominal Pain Stated Complaint: ABD PAIN Time Seen by Provider: 07/13/20 12:00 History of Present Illness: HPI narrative: 24 yo old female with pelvic pain. She is currently on metronidazole for trichomonas infection. Denies any hematochezia or melena. Has mild dysuria denies any vomiting does have some nausea. She is in police custody at this time and presents additionally with complaints of auditory and visual hallucinations states she has a history of schizophrenia. She is not been hospitalized here before 5 years ago she was evaluated by [facility] when I called and discussed Dr. Solorio he had previously received a call from the [facility] about her but had not started any medications at that time she was staying she was on lithium. Today when she comes in she states she was previously on Remeron. MD elicited complaint: abdominal pain and other (pelvic pain) Associated Symptoms: Denies bloating, chills, coffee ground emesis, constipation, diarrhea, dysuria, fever(s), hematochezia, hematemesis, melena, nausea and vomiting Related Data: Date of Last Menstrual Period: 12/31/19 Review of Systems Const: Denies: fever(s), chills, body aches, change in appetite, fatigue or malaise ENMT: Denies: throat pain, ear or mastoid pain, nasal discharge or nasal congestion Card: Denies: chest pain, edema, dyspnea on exertion or orthopnea Resp: Denies: dyspnea, productive cough or non-productive cough GI: Denies: abdominal pain, nausea, vomiting, hematemesis, coffee ground emesis, diarrhea, constipation, bloating, hematochezia or melena : Denies: flank pain, difficulty voiding, dysuria, urinary frequency or urinary urgency Skin/Breast: Denies: rash or pruritus PFSH ED PFSH: Medical History Abdominal pain Fever Trichomonal infection Social History Smoking and tobacco status: current every day smoker Female Reproductive History: Date of last menstrual period: 12/31/19 Physical Exam Const: COMMON NORMALS: no acute distress GENERAL APPEARANCE: cooperative and comfortable ORIENTATION/CONSCIOUSNESS: Yes awake, Yes oriented to person, Yes oriented to place and Yes oriented to time HENMT: COMMON NORMALS: normocephalic, atraumatic and hearing grossly normal bilaterally HEAD & SCALP: normocephalic and atraumatic Eye: COMMON NORMALS: Equal, round and reactive pupils present, EOMs intact bilaterally, conjunctivae normal and no scleral icterus CONJUNCTIVA: Yes conjunctivae normal PUPIL: Yes Equal, round and reactive pupils present Neck/C-Spine: COMMON NORMALS: full ROM, no lymphadenopathy, supple and no JVD Lymph: LYMPHATIC: no lymphadenopathy noted and no lymphedema noted Resp: COMMON NORMALS: normal respiratory effort, No retractions, No use of accessory muscles and clear to auscultation bilaterally AUSCULTATION: clear to auscultation bilaterally Cardio: COMMON NORMALS: no JVD, regular rate, regular rhythm and No murmurs present (Cardio) RATE: regular rate RHYTHM: regular rhythm GI: COMMON NORMALS: Soft to palpation and No hepatosplenomegaly present AUSCULTATION: Yes normoactive bowel sounds PALPATION: Yes Soft to palpation, No Tenderness to palpation present (GI), No Guarding due to palpation present (GI) and Yes No hepatosplenomegaly present Extremity: COMMON NORMALS: normal to inspection, capillary refill normal, no clubbing, cyanosis or edema, no calf tenderness and no pedal edema Neuro: SENSORIUM/ORIENTATION: Yes oriented to person, Yes oriented to place and Yes oriented to time Skin: COMMON NORMALS: no rashes or lesions noted GENERAL SKIN EXAM: no rashes or lesions noted Course Vital Signs: Vital signs: Vital Signs Temperature 98.2 F 07/13/20 12:02 Pulse Rate 94 07/13/20 14:24 Respiratory Rate 18 07/13/20 14:24 Blood Pressure 134/97 07/13/20 14:24 Pulse Oximetry 98 07/13/20 14:24 MDM - Abdominal Pain MDM Narrative: Medical decision making narrative: Continue treatment for trichomonal infection. Discussed with Dr. Solorio he recommends Abilify 5 mg daily for a week and increase to 10 mg daily. Reviewed the other findings with the patient including the cystitis will have her start on antibiotics and follow-up as needed. Lab Data: Labs: Lab Results 07/13/20 07/13/20 07/13/20 Range/Units 12:20 13:03 13:03 WBC 8.5 (4.0-10.0) 10^3/ uL RBC 4.88 (4.1-5.3) 10^6/u L Hgb 13.8 (11.5-15.3) g/dL Hct 42.8 (37.0-47.0) % MCV 87.7 (81-99) fL MCH 28.3 (28.0-34.0) pg MCHC 32.2 (30.0-36.0) g/dL RDW 13.7 (12.1-15.1) % Plt Count 305 (130-400) 10^3/c mm MPV 8.9 (7.4-10.4) fL Neut % (Auto) 54.5 % Lymph % (Auto) 36.2 % [place] % (Auto) 7.0 % Eos % (Auto) 1.4 % Baso % (Auto) 0.4 % Neut # (Auto) 4.63 (1.8-7.7) 10^3/u L Lymph # (Auto) 3.1 (0.8-4.8) 10^3/u L [place] # (Auto) 0.6 (0.2-0.9) 10^3/u L Eos # (Auto) 0.1 (0.0-0.8) 10^3/u L Baso # (Auto) 0.0 (0.0-0.1) 10^3/u L Nucleated RBC % (a uto) 0 % Nucleated RBCs # 0.0 /100WBC Sodium 139 (136-145) mmol/L Potassium 4.0 (3.5-5.1) mmol/L Chloride 103 (98-107) mmol/L Carbon Dioxide 26 (22-29) mmol/L Anion Gap 14.0 (5-19) BUN 12 (6-20) mg/dL Creatinine 0.5 (0.5-0.9) mg/dL GFR Calculation 149.1 H (90-130) mL/min Glucose 88 (65-115) mg/dL Calculated Osmolal ity 287 (285-295) mOsm/k g Calcium 9.6 (8.5-10.5) mg/dL Total Bilirubin 0.2 (0.15-1.2) mg/dL AST 11 (0-32) U/L ALT 12 (0-33) U/L Alkaline Phosphata se 54 (35-105) IU/L Total Protein 7.2 (6.6-8.7) g/dL Albumin 4.7 (3.5-5.2) g/dL Globulin 2.5 (1.3-4.6) g/dL Ser , Rianna i-Qnt mIU/mL Urine Color Yellow (Yellow) Urine Appearance Hazy A (CLEAR) Urine pH 8 H (5-7) Ur Specific Gravit y 1.010 (1.005-1.030) Urine Protein Neg (Negative) Urine Glucose (UA) Norm (Normal) Urine Ketones Negative (Negative) Urine Blood Neg (Negative) Urine Nitrate Negative (Negative) Urine Bilirubin Neg (Negative) Prot Sulfosalicyli c Acd Negative (Negative) Urine Urobilinogen Norm (Negative) mg/dL Ur Leukocyte Autumn ase 2+ H (Negative) Urine RBC None (0-2) /hpf Urine WBC 40-55 H (0-5) /hpf Ur Squamous Epith Cells 40-55 H (0-5) /hpf Ur Transition Epit h Cell 5-10 /hpf Amorphous Sediment Not Reportable Urine Bacteria 2+ H (NONE) /hpf Urine Mucus 1+ /hpf //20 Range/Units 13:03 WBC (4.0-10.0) 10^3/ uL RBC (4.1-5.3) 10^6/u L Hgb (11.5-15.3) g/dL Hct (37.0-47.0) % MCV (81-99) fL MCH (28.0-34.0) pg MCHC (30.0-36.0) g/dL RDW (12.1-15.1) % Plt Count (130-400) 10^3/c mm MPV (7.4-10.4) fL Neut % (Auto) % Lymph % (Auto) % [place] % (Auto) % Eos % (Auto) % Baso % (Auto) % Neut # (Auto) (1.8-7.7) 10^3/u L Lymph # (Auto) (0.8-4.8) 10^3/u L [place] # (Auto) (0.2-0.9) 10^3/u L Eos # (Auto) (0.0-0.8) 10^3/u L Baso # (Auto) (0.0-0.1) 10^3/u L Nucleated RBC % (a uto) % Nucleated RBCs # /100WBC Sodium (136-145) mmol/L Potassium (3.5-5.1) mmol/L Chloride (98-107) mmol/L Carbon Dioxide (22-29) mmol/L Anion Gap (5-19) BUN (6-20) mg/dL Creatinine (0.5-0.9) mg/dL GFR Calculation (90-130) mL/min Glucose (65-115) mg/dL Calculated Osmolal ity (285-295) mOsm/k g Calcium (8.5-10.5) mg/dL Total Bilirubin (0.15-1.2) mg/dL AST (0-32) U/L ALT (0-33) U/L Alkaline Phosphata se (35-105) IU/L Total Protein (6.6-8.7) g/dL Albumin (3.5-5.2) g/dL Globulin (1.3-4.6) g/dL Ser , Rianna i-Qnt 0.50 mIU/mL Urine Color (Yellow) Urine Appearance (CLEAR) Urine pH (5-7) Ur Specific Gravit y (1.005-1.030) Urine Protein (Negative) Urine Glucose (UA) (Normal) Urine Ketones (Negative) Urine Blood (Negative) Urine Nitrate (Negative) Urine Bilirubin (Negative) Prot Sulfosalicyli c Acd (Negative) Urine Urobilinogen (Negative) mg/dL Ur Leukocyte Autumn ase (Negative) Urine RBC (0-2) /hpf Urine WBC (0-5) /hpf Ur Squamous Epith Cells (0-5) /hpf Ur Transition Epit h Cell /hpf Amorphous Sediment Urine Bacteria (NONE) /hpf Urine Mucus /hpf Discharge Plan Discharge Patient Disposition: Home Clinical Impression: Abdominal pain, Trichomonal infection, Schizophrenia, Cystitis Condition: Stable Prescriptions: New Abilify 10 mg tablet 10 mg PO DAILY Qty: 30 RF: 0 Bactrim DS 800-160 mg tablet 1 tab PO DAILY 7 Days Qty: 14 RF: 0 No Action metronidazole 500 mg tablet 500 mg PO BID 14 Days Qty: 28 RF: 0 Tylenol Extra Strength 500 mg Tablet 1,000 mg PO Q4H PRN (Reason: Pain) RF: 0 Discharge Orders: Discharge Order (Routine); Ordered 07/13/20 Ordered By: Saran Fountain Discharge Diet: Usual diet Discharge Activity: Resume usual activity Discharge Date/Time: 07/13/20 14:26 Coding Level of Care Code ED Press And Blow Machine Tender for Sailajag Fwd Exam Comprehensive
[2020-07-13 12:02] VITALS: BP 117/82; PULSE 80; RESP 18; TEMP 36.8; O2SAT 100; BMI 21.0
[2020-07-13 13:17] LABS: Basophils % 0.4 %; Eosinophils # 0.1 10^3/uL (0.0-0.8); Eosinophils % 1.4 %; Hematocrit 42.8 % (37.0-47.0); Hemoglobin 13.8 g/dL (11.5-15.3); Lymphocytes # 3.1 10^3/uL (0.8-4.8); Lymphocytes % 36.2 %; Mean Corpuscular HGB Conc 32.2 g/dL (30.0-36.0); Mean Corpuscular Hemoglobin 28.3 pg (28.0-34.0); Mean Corpuscular Volume 87.7 fL (81-99); Mean Platelet Volume 8.9 fL (7.4-10.4); Monocytes # 0.6 10^3/uL (0.2-0.9); Neutrophils # 4.63 10^3/uL (1.8-7.7); Neutrophils % 54.5 %; Nucleated Red Blood Cells % 0 %; Platelet Count 305 10^3/cmm (130-400); Red Blood Count 4.88 10^6/uL (4.1-5.3); Red Cell Distribution Width 13.7 % (12.1-15.1); White Blood Count 8.5 10^3/uL (4.0-10.0)
[2020-07-13 13:40] LABS: Alanine Aminotransferase 12 U/L (0-33); Albumin Level 4.7 g/dL (3.5-5.2); Alkaline Phosphatase 54 IU/L (35-105); Aspartate Amino Transferase 11 U/L (0-32); Blood Urea Nitrogen 12 mg/dL (6-20); Calcium 9.6 mg/dL (8.5-10.5); Carbon Dioxide 26 mmol/L (22-29); Chloride 103 mmol/L (98-107); Globulin 2.5 g/dL (1.3-4.6); Glomerular Filtration Rate 149.1 mL/min (90-130); Glucose 88 mg/dL (65-115); Osmolality Calculated 287 mOsm/kg (285-295); Sodium 139 mmol/L (136-145); Total Bilirubin 0.2 mg/dL (0.15-1.2); Total Protein 7.2 g/dL (6.6-8.7)
[2020-07-13 13:42] LABS: Add Urine Microscopic? YES; Bilirubin Urine Neg (Negative); Blood Urine Neg (Negative); Glucose Urine UA Norm (Normal); Ketones Urine Negative (Negative); Leukocyte Esterase Urine 2+ (Negative); Nitrate Urine Negative (Negative); Protein Urine Neg (Negative); Sulfosalicylic Acid Urine Negative (Negative); Urine Appearance Hazy (CLEAR); Urine Color Yellow (Yellow); Urobilinogen Urine Norm (Negative); pH Urine 8 (5-7)
[2020-07-13 13:44] LABS: Bacteria Urine 2+ /hpf; Mucus Urine 1+ /hpf; WBC Urine 40-55 /hpf (0-5)
[2020-07-13 13:45] LABS: Add Urine Culture? No; Squamous Epithelial Cell Urine 40-55 /hpf (0-5)
[2020-07-13] MEDS: ARIPiprazole 10 mg Tablet 5 MG PO (14:21)
[2020-07-13 14:24] VITALS: BP 134/97; PULSE 94; RESP 18; O2SAT 98
== END 2020-07-13 14:26 | disposition home or self-care (01) ==
PROVIDERS: Emergency Provider Family Medicine
DX: R10.9 Unspecified abdominal pain (principal); A59.9 Trichomoniasis, unspecified; N30.90 Cystitis, unspecified without hematuria; F20.9 Schizophrenia, unspecified; F17.210 Nicotine dependence, cigarettes, uncomplicated
CPT/HCPCS: 12345; 36415; 80053; 81001; 84702; 85025; 99282; 99283

== ENCOUNTER 2020-07-21 09:22 | Emergency (ER) | payer SELFPAY ==
[2020-07-21 09:32] VITALS: BP 141/84; PULSE 123; RESP 18; TEMP 36.1; O2SAT 100; BMI 21.0
--- NOTE | 2020-07-21 09:32 | PC.NURSE ---
Patient is in police custody and is remaining in cuffs and shackles. Per Dr. Goldman no sitter is needed.
--- NOTE | 2020-07-21 09:42 | ED_ITS ---
HPI - Psych General: Chief Complaint: Psychiatric Symptoms Stated Complaint: LOW ABD PAIN/HALLUCINATIONS Time Seen by Provider: 07/21/20 09:32 Source: patient Mode of arrival: other (police) Limitations: no limitations History of Present Illness: HPI Narrative: 24-year-old female who is here from [facility] stating that she is got burning in her vagina and feels like something is falling out. States she had some dysuria. She denies any discharge. Patient also states she has severe PTSD and is quite anxious. She is also had suicidal thoughts. Patient is on [facility] watch at [facility]. Patient denies any worsening or improving factors. Associated symptoms: Reports depression Review of Systems Const: Denies: fever(s), chills, body aches or change in appetite Eyes: Denies: blurry vision or eye discomfort ENMT: Denies: throat pain or dental pain Card: Denies: chest pain Resp: Denies: dyspnea GI: Denies: abdominal pain, nausea, vomiting or diarrhea : Reports: dysuria Musc: Denies: neck pain or back pain Skin/Breast: Denies: rash Neuro: Denies: headache(s) Psych: Reports: anxiety and depression Bradly/Lymph: Denies: easy bruising All/Imm: Denies: urticaria PFSH ED PFSH: Medical History Abdominal pain Fever Trichomonal infection Social History Smoking and tobacco status: current every day smoker Female Reproductive History: Date of last menstrual period: 04/23/20 Physical Exam Const: COMMON NORMALS: no acute distress, patient oriented x3 and healthy appearing HENMT: COMMON NORMALS: normocephalic and atraumatic HEAD & SCALP: normocephalic and atraumatic Eye: COMMON NORMALS: Equal, round and reactive pupils present and EOMs intact bilaterally PUPIL: Yes Equal, round and reactive pupils present Neck/C-Spine: COMMON NORMALS: full ROM and supple Chest: COMMONS NORMALS: normal inspection of the chest and normal palpation of entire chest wall Resp: COMMON NORMALS: normal respiratory effort, No retractions, No use of accessory muscles and clear to auscultation bilaterally AUSCULTATION: clear to auscultation bilaterally Cardio: COMMON NORMALS: regular rate, regular rhythm and No murmurs present (Cardio) RATE: regular rate RHYTHM: regular rhythm GI: COMMON NORMALS: Normal to inspection, nondistended, normoactive bowel sounds present, Soft to palpation, non-tender and no masses PALPATION: Yes Soft to palpation Extremity: COMMON NORMALS: normal to inspection and full ROM Neuro: COMMON NORMALS: patient oriented x3, moves all extremities and no focal motor deficits Psych: COMMON NORMALS: mental status grossly normal, Normal thought process present and cooperative MOOD & AFFECT: Yes depressed mood and Yes anxious THOUGHT PROCESS: Normal thought process present Skin: COMMON NORMALS: no rashes or lesions noted and no wounds GENERAL SKIN EXAM: no rashes or lesions noted MDM - Psych MDM Narrative: Medical decision making narrative: Patient presents with some dysuria and is currently on antibiotics for UTI. Urine here looks clear. I did a pelvic exam that was normal with no signs of discharge or tenderness. Patient has had some anxiety and depression. Patient is on [facility] watch at the [facility] and I spoke to business supervisor and they do not want a release in 1 to keep her in [facility] and she is to continue to be on suicide watch. Patient is stable for discharge back to [facility] at this time. Lab Data: Labs: Lab Results 07/21/20 07/21/20 07/21/20 Range/Units 10:25 10:25 10:25 HCG, Qual Negative (Negative) Urine Color Yellow (Yellow) Urine Appearance Sl hazy (CLEAR) Urine pH 6 (5-7) Ur Specific Gravit y 1.010 (1.005-1.030) Urine Protein Neg (Negative) Urine Glucose (UA) Norm (Normal) Urine Ketones Negative (Negative) Urine Blood Neg (Negative) Urine Nitrate Negative (Negative) Urine Bilirubin Neg (Negative) Urine Urobilinogen Norm (Negative) mg/dL Ur Leukocyte Autumn ase Negative (Negative) Urine RBC None (0-2) /hpf Urine WBC Rare (0-5) /hpf Ur Squamous Epith Cells 15-25 H (0-5) /hpf Amorphous Sediment Not Reportable Urine Bacteria Trace (NONE) /hpf Urine Mucus 1+ /hpf Urine Opiates Scre en Negative (Negative) ng/mL Ur Barbiturates Sc reen Negative (Negative) ng/mL Ur Phencyclidine S crn Negative (Negative) ng/mL Ur Amphetamines Sc reen Negative (Negative) ng/mL U Benzodiazepines Scrn Negative (Negative) ng/mL Urine Cocaine Scre en Negative (Negative) ng/mL U Marijuana (THC) Screen Negative (Negative) ng/mL Discharge Plan Discharge Patient Disposition: Home Clinical Impression: Acute anxiety, Dysuria Condition: Stable Prescriptions: No Action metronidazole 500 mg tablet 500 mg PO BID 14 Days Qty: 28 RF: 0 Tylenol Extra Strength 500 mg Tablet 1,000 mg PO Q4H PRN (Reason: Pain) RF: 0 Abilify 10 mg tablet 10 mg PO DAILY Qty: 30 RF: 0 Discharge Orders: Discharge Order (Routine); Ordered 07/21/20 Ordered By: Emily Goldman Discharge Diet: Advance as tolerated Discharge Activity: Resume usual activity Patient Instructions: Dysuria (ED) Discharge Date/Time: 07/21/20 11:28 Coding Level of Care Code ED Fire Behavior Analyst for Brian Fwchristelle Exam Comprehensive
[2020-07-21 10:29] LABS: HCG Qualitative Urine. Negative (Negative)
[2020-07-21] MEDS: LORazepam 2 mg Tablet PO (10:29)
[2020-07-21 11:02] LABS: Add Urine Microscopic? YES; Bilirubin Urine Neg (Negative); Blood Urine Neg (Negative); Glucose Urine UA Norm (Normal); Ketones Urine Negative (Negative); Leukocyte Esterase Urine Negative (Negative); Nitrate Urine Negative (Negative); Protein Urine Neg (Negative); Urine Appearance SL Hazy (CLEAR); Urine Color Yellow (Yellow); Urobilinogen Urine Norm (Negative); pH Urine 6 (5-7)
[2020-07-21 11:03] LABS: Bacteria Urine TRACE /hpf; Squamous Epithelial Cell Urine 15-25 /hpf (0-5); WBC Urine RARE /hpf (0-5)
[2020-07-21 11:04] LABS: Add Urine Culture? No; Mucus Urine 1+ /hpf
[2020-07-21 11:25] LABS: Amphetamines Screen Urine Negative (Negative); Barbiturates Screen Urine Negative (Negative); Benzodiazepines Screen Urine Negative (Negative); Cocaine Screen Urine Negative (Negative); Opiate Screen Urine Negative (Negative); PCP Screen Urine Negative (Negative); THC Screen Urine Negative (Negative)
== END 2020-07-21 11:28 | disposition home or self-care (01) ==
PROVIDERS: Emergency Provider Emergency Medicine
DX: R30.0 Dysuria (principal); F41.9 Anxiety disorder, unspecified; F17.210 Nicotine dependence, cigarettes, uncomplicated
CPT/HCPCS: 12345; 80306; 81001; 81025; 87491; 87591; 99284

== ENCOUNTER 2020-07-22 14:50 | Emergency (ER) | payer SELFPAY ==
--- NOTE | 2020-07-22 15:19 | XR_ITS ---
WS: [id number] XR chest 1V portable [id number] REASON FOR EXAM: dyspnea/cough FINDINGS: The chest is unchanged compared to previous examination of 02/12/2020. The heart and mediastinum are within normal limits. No active pulmonary parenchymal pleural disease is noted. Bony thorax is intact. XR/XR chest 1V portable [id number] IMPRESSION: No acute chest abnormality.
--- NOTE | 2020-07-22 15:19 | ECG_ITS ---
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 Measurements Intervals [place] Rate: 109 P: 57 MA: 133 QRS: 64 QRSD: 79 T: 59 QT: 311 QTc: 419 Interpretive Statements SINUS TACHYCARDIA ABNORMAL RHYTHM ECG Compared to ECG 06/01/2020 16:03:43 No significant changes Electronically Signed On 07-23-2020 20:51:42 CDT by Natalia Nelson M.D. [id number]
[2020-07-22 15:30] VITALS: BP 122/83; PULSE 119; RESP 14; TEMP 36.9; O2SAT 97; BMI 21.0
[2020-07-22 17:29] LABS: Add Urine Culture? No; Add Urine Microscopic? YES; Amorphous Sediment Urine 3+ /hpf; Bacteria Urine 1+ /hpf; Bilirubin Urine Neg (Negative); Blood Urine Neg (Negative); Glucose Urine UA Norm (Normal); Ketones Urine Negative (Negative); Leukocyte Esterase Urine Negative (Negative); Nitrate Urine Negative (Negative); Protein Urine Neg (Negative); Squamous Epithelial Cell Urine 0-4 /hpf (0-5); Urine Appearance Cloudy (CLEAR); Urine Color Yellow (Yellow); Urobilinogen Urine Norm (Negative); WBC Urine 0-4 /hpf (0-5); pH Urine 7 (5-7)
--- NOTE | 2020-07-22 17:58 | ED_ITS ---
HPI - Chest Pain General: Chief Complaint: Chest Pain Stated Complaint: CHEST PAIN, INCREASED HR Time Seen by Provider: 07/22/20 17:55 Source: patient Mode of arrival: ambulatory Limitations: no limitations History of Present Illness: HPI narrative: 24-year-old female who [facility]. She states she is been having palpitations does have anxiety. She has had some chest pain and dyspnea as well over the last week. She denies any worsening improving factors. She denies any fevers. Denies any vomiting or diarrhea. Patient was seen here yesterday for pelvic complaints. Associated symptoms: Deny abdominal pain, dyspnea, fever(s), nausea or vomiting Review of Systems Const: Denies: fever(s), chills, body aches or change in appetite Eyes: Denies: blurry vision or eye discomfort ENMT: Denies: throat pain or dental pain Card: Reports: irregular heart rhythm Resp: Denies: dyspnea GI: Denies: abdominal pain, nausea, vomiting or diarrhea : Denies: dysuria Musc: Denies: neck pain or back pain Skin/Breast: Denies: rash Neuro: Denies: headache(s) Psych: Denies: depression Bradly/Lymph: Denies: easy bruising All/Imm: Denies: urticaria PFSH ED PFSH: Medical History (Updated 07/22/20 @ 19:11 by Emily Goldman MD) Abdominal pain Fever Trichomonal infection Social History Smoking and tobacco status: current every day smoker Female Reproductive History: Date of last menstrual period: 04/23/20 Physical Exam Const: COMMON NORMALS: no acute distress, patient oriented x3 and healthy appearing HENMT: COMMON NORMALS: normocephalic and atraumatic HEAD & SCALP: normocephalic and atraumatic Eye: COMMON NORMALS: Equal, round and reactive pupils present and EOMs intact bilaterally PUPIL: Yes Equal, round and reactive pupils present Neck/C-Spine: COMMON NORMALS: full ROM and supple Chest: COMMONS NORMALS: normal inspection of the chest and normal palpation of entire chest wall Resp: COMMON NORMALS: normal respiratory effort, No retractions, No use of accessory muscles and clear to auscultation bilaterally AUSCULTATION: clear to auscultation bilaterally Cardio: COMMON NORMALS: regular rhythm and No murmurs present (Cardio) RATE: tachycardic RHYTHM: regular rhythm GI: COMMON NORMALS: Normal to inspection, nondistended, normoactive bowel sounds present, Soft to palpation, non-tender and no masses PALPATION: Yes Soft to palpation Extremity: COMMON NORMALS: normal to inspection and full ROM Neuro: COMMON NORMALS: patient oriented x3, moves all extremities and no focal motor deficits Psych: COMMON NORMALS: mental status grossly normal, Normal thought process present and cooperative THOUGHT PROCESS: Normal thought process present Skin: COMMON NORMALS: no rashes or lesions noted and no wounds GENERAL SKIN EXAM: no rashes or lesions noted Course Vital Signs: Vital signs: Vital Signs Temperature 98.4 F 07/22/20 15:30 Pulse Rate 95 07/22/20 18:20 Respiratory Rate 16 07/22/20 18:20 Blood Pressure 117/78 07/22/20 18:20 Pulse Oximetry 97 07/22/20 18:20 MDM - Chest Pain MDM Narrative: Medical decision making narrative: Patient presents with chest pain is atypical in nature. Patient does have a history of anxiety. We will [facility] her with [facility]. Patient's troponin and d-dimer are normal. She has no signs of blood clot or any other findings. She is stable for discharge. Lab Data: Labs: Lab Results 07/22/20 07/22/20 07/22/20 Range/Units 16:39 18:20 18:20 WBC 8.8 (4.0-10.0) 10^3/ uL RBC 4.47 (4.1-5.3) 10^6/u L Hgb 12.8 (11.5-15.3) g/dL Hct 39.5 (37.0-47.0) % MCV 88.4 (81-99) fL MCH 28.6 (28.0-34.0) pg MCHC 32.4 (30.0-36.0) g/dL RDW 14.6 (12.1-15.1) % Plt Count 283 (130-400) 10^3/c mm MPV 9.0 (7.4-10.4) fL Neut % (Auto) 52.6 % Lymph % (Auto) 39.1 % [place] % (Auto) 6.7 % Eos % (Auto) 1.1 % Baso % (Auto) 0.3 % Neut # (Auto) 4.60 (1.8-7.7) 10^3/u L Lymph # (Auto) 3.4 (0.8-4.8) 10^3/u L [place] # (Auto) 0.6 (0.2-0.9) 10^3/u L Eos # (Auto) 0.1 (0.0-0.8) 10^3/u L Baso # (Auto) 0.0 (0.0-0.1) 10^3/u L Nucleated RBC % (a uto) 0 % Nucleated RBCs # 0.0 /100WBC D-Dimer <= 0.27 (0-0.59) ug/mIFE U Sodium (136-145) mmol/L Potassium (3.5-5.1) mmol/L Chloride (98-107) mmol/L Carbon Dioxide (22-29) mmol/L Anion Gap (5-19) BUN (6-20) mg/dL Creatinine (0.5-0.9) mg/dL GFR Calculation (90-130) mL/min Glucose (65-115) mg/dL Calculated Osmolal ity (285-295) mOsm/k g Calcium (8.5-10.5) mg/dL Total Bilirubin (0.15-1.2) mg/dL AST (0-32) U/L ALT (0-33) U/L Alkaline Phosphata se (35-105) IU/L Troponin T Baselin e (0-10) ng/L Total Protein (6.6-8.7) g/dL Albumin (3.5-5.2) g/dL Globulin (1.3-4.6) g/dL Urine Color Yellow (Yellow) Urine Appearance Cloudy (CLEAR) Urine pH 7 (5-7) Ur Specific Gravit y 1.010 (1.005-1.030) Urine Protein Neg (Negative) Urine Glucose (UA) Norm (Normal) Urine Ketones Negative (Negative) Urine Blood Neg (Negative) Urine Nitrate Negative (Negative) Urine Bilirubin Neg (Negative) Urine Urobilinogen Norm (Negative) mg/dL Ur Leukocyte Autumn ase Negative (Negative) Urine RBC None (0-2) /hpf Urine WBC 0-4 H (0-5) /hpf Ur Squamous Epith Cells 0-4 H (0-5) /hpf Amorphous Sediment 3+ /hpf Urine Bacteria 1+ H (NONE) /hpf 07/22/20 07/22/20 Range/Units 18:20 18:20 WBC (4.0-10.0) 10^3/ uL RBC (4.1-5.3) 10^6/u L Hgb (11.5-15.3) g/dL Hct (37.0-47.0) % MCV (81-99) fL MCH (28.0-34.0) pg MCHC (30.0-36.0) g/dL RDW (12.1-15.1) % Plt Count (130-400) 10^3/c mm MPV (7.4-10.4) fL Neut % (Auto) % Lymph % (Auto) % [place] % (Auto) % Eos % (Auto) % Baso % (Auto) % Neut # (Auto) (1.8-7.7) 10^3/u L Lymph # (Auto) (0.8-4.8) 10^3/u L [place] # (Auto) (0.2-0.9) 10^3/u L Eos # (Auto) (0.0-0.8) 10^3/u L Baso # (Auto) (0.0-0.1) 10^3/u L Nucleated RBC % (a uto) % Nucleated RBCs # /100WBC D-Dimer (0-0.59) ug/mIFE U Sodium 141 (136-145) mmol/L Potassium 4.1 (3.5-5.1) mmol/L Chloride 104 (98-107) mmol/L Carbon Dioxide 25 (22-29) mmol/L Anion Gap 16.1 (5-19) BUN 16 (6-20) mg/dL Creatinine 0.7 (0.5-0.9) mg/dL GFR Calculation 101.1 (90-130) mL/min Glucose 94 (65-115) mg/dL Calculated Osmolal ity 293 (285-295) mOsm/k g Calcium 9.6 (8.5-10.5) mg/dL Total Bilirubin 0.2 (0.15-1.2) mg/dL AST 12 (0-32) U/L ALT 14 (0-33) U/L Alkaline Phosphata se 57 (35-105) IU/L Troponin T Baselin e 6 (0-10) ng/L Total Protein 6.7 (6.6-8.7) g/dL Albumin 4.3 (3.5-5.2) g/dL Globulin 2.4 (1.3-4.6) g/dL Urine Color (Yellow) Urine Appearance (CLEAR) Urine pH (5-7) Ur Specific Gravit y (1.005-1.030) Urine Protein (Negative) Urine Glucose (UA) (Normal) Urine Ketones (Negative) Urine Blood (Negative) Urine Nitrate (Negative) Urine Bilirubin (Negative) Urine Urobilinogen (Negative) mg/dL Ur Leukocyte Autumn ase (Negative) Urine RBC (0-2) /hpf Urine WBC (0-5) /hpf Ur Squamous Epith Cells (0-5) /hpf Amorphous Sediment /hpf Urine Bacteria (NONE) /hpf Imaging Data^: CXR: Radiologist's impression: [address] [address] XRay Report Signed Patient: Noé Hoyos Unit #: [id number] : 1995 Age/Sex: 24 / F ADM Date: 07/22/20 Loc: ER Room/Bed: Attending Dr: Ordering Provider/Ordering MD: Saran Fountain DO Date of Service: 07/22/20 Procedure(s): XR chest 1V portable [id number] Accession Number(s): [id number] Report Number: [id number] WS: [id number] XR chest 1V portable [id number] REASON FOR EXAM: dyspnea/cough FINDINGS: The chest is unchanged compared to previous examination of 02/12/2020. The heart and mediastinum are within normal limits. No active pulmonary parenchymal pleural disease is noted. Bony thorax is intact. XR/XR chest 1V portable [id number] IMPRESSION: No acute chest abnormality. EKG Data^: EKG 1: Attestation: I personally reviewed and interpreted this EKG as follows: EKG interpretation date: 07/22/20 EKG interpretation time: 18:15 Interpretation: nsr hr 96 qtc [address] or t wave abnormalities Discharge Plan Discharge Patient Disposition: Home Clinical Impression: Anxiety Chest pain Qualifiers: Chest pain type: unspecified Qualified Code(s): R07.9 - Chest pain, unspecified Condition: Stable Prescriptions: New Vistaril 50 mg capsule 50 mg PO Q8H PRN (Reason: anxiety) Qty: 14 RF: 0 No Action metronidazole 500 mg tablet 500 mg PO BID 14 Days Qty: 28 RF: 0 acetaminophen [Tylenol Extra Strength] 500 mg Tablet 1,000 mg PO PRN RF: 0 aripiprazole [Abilify] 10 mg tablet 10 mg PO DAILY Qty: 30 RF: 0 sulfamethoxazole-trimethoprim 800-160 mg tablet 1 tab PO DAILY RF: 0 Claritin-D Tab 1 tab PO DAILY PRN (Reason: unknown) RF: 0 Discharge Orders: Discharge Order (Routine); Ordered 07/22/20 Ordered By: Emily Goldman Discharge Diet: Advance as tolerated Discharge Activity: Resume usual activity Patient Instructions: Chest Pain (ED) Coding Level of Care Code ED [employer] for [facility] Fwd Exam Comprehensive
[2020-07-22 18:20] VITALS: BP 117/78; PULSE 95; RESP 16; O2SAT 97
[2020-07-22] MEDS: LORazepam 1 mg Tablet PO (18:22)
[2020-07-22 18:28] LABS: Basophils % 0.3 %; Eosinophils # 0.1 10^3/uL (0.0-0.8); Eosinophils % 1.1 %; Hematocrit 39.5 % (37.0-47.0); Hemoglobin 12.8 g/dL (11.5-15.3); Lymphocytes # 3.4 10^3/uL (0.8-4.8); Lymphocytes % 39.1 %; Mean Corpuscular HGB Conc 32.4 g/dL (30.0-36.0); Mean Corpuscular Hemoglobin 28.6 pg (28.0-34.0); Mean Corpuscular Volume 88.4 fL (81-99); Monocytes # 0.6 10^3/uL (0.2-0.9); Monocytes % 6.7 %; Neutrophils % 52.6 %; Nucleated Red Blood Cells % 0 %; Platelet Count 283 10^3/cmm (130-400); Red Blood Count 4.47 10^6/uL (4.1-5.3); Red Cell Distribution Width 14.6 % (12.1-15.1); White Blood Count 8.8 10^3/uL (4.0-10.0)
[2020-07-22 18:54] LABS: D Dimer <= 0.27 ug/mIFEU (0-0.59)
[2020-07-22 19:00] LABS: Alanine Aminotransferase 14 U/L (0-33); Albumin Level 4.3 g/dL (3.5-5.2); Alkaline Phosphatase 57 IU/L (35-105); Anion Gap 16.1 (5-19); Aspartate Amino Transferase 12 U/L (0-32); Blood Urea Nitrogen 16 mg/dL (6-20); Calcium 9.6 mg/dL (8.5-10.5); Carbon Dioxide 25 mmol/L (22-29); Chloride 104 mmol/L (98-107); Globulin 2.4 g/dL (1.3-4.6); Glomerular Filtration Rate 101.1 mL/min (90-130); Glucose 94 mg/dL (65-115); Osmolality Calculated 293 mOsm/kg (285-295); Potassium 4.1 mmol/L (3.5-5.1); Sodium 141 mmol/L (136-145); Total Bilirubin 0.2 mg/dL (0.15-1.2); Total Protein 6.7 g/dL (6.6-8.7)
[2020-07-22 19:04] LABS: Troponin(5th) Baseline 6 ng/L (0-10)
[2020-07-22 19:23] VITALS: BP 118/91; PULSE 64; RESP 16; O2SAT 99
== END 2020-07-22 19:26 | disposition home or self-care (01) ==
PROVIDERS: Family Medicine; Emergency Provider Emergency Medicine
DX: R07.9 Chest pain, unspecified (principal); F41.9 Anxiety disorder, unspecified; F17.210 Nicotine dependence, cigarettes, uncomplicated
CPT/HCPCS: 12345; 36415; 71045; 80053; 81001; 84484; 85025; 85378; 93005; 99282; 99283

== ENCOUNTER 2020-10-28 10:11 | Emergency (ER) | payer SELFPAY ==
[2020-10-28] VITALS (11 sets, daily range): BP systolic 94–122; BP diastolic 50–81; PULSE 98–122; RESP 16–18; TEMP 37; O2SAT 97–99; BMI 20.5
--- NOTE | 2020-10-28 10:32 | W.ED.ABDPA2 ---
HPI - Abdominal Pain General: Chief Complaint: Abdominal Pain Stated Complaint: SEVERE AB PAIN Time Seen by Provider: 10/28/20 10:27 Source: patient Mode of arrival: ambulatory Limitations: no limitations History of Present Illness: HPI narrative: Patient is a 24-year-old female who presents to ED today with a complaint of severe abdominal pain. Patient tells me pain first began approximately 3 days ago and has been constant and progressively worsening since onset. She states pain seems to be located to her right upper quadrant and left lower quadrants. She is having nausea without vomiting. She has not noticed any changes in her bowel or urine habits. She reports fevers of 101.3 yesterday. Previous abdominal surgeries include 3 sections. MD elicited complaint: abdominal pain Pertinent past history: none Onset (ago): day(s) Pain Consistency: constant Location: RUQ and LLQ Severity: severe Exacerbating factors: nothing Relieving factors: nothing Associated Symptoms: Reports chills, fever(s) and nausea; Denies change in stool character, coffee ground emesis, diarrhea, dysuria, heartburn, hematochezia, hematemesis, melena and vomiting Related Data: Date of Last Menstrual Period: 10/21/20 Patient : No Review of Systems Const: Reports: fever(s), chills and body aches Eyes: Denies: change in vision, blurry vision or photophobia ENMT: Denies: throat pain or odynophagia Card: Denies: chest pain Resp: Denies: dyspnea GI: Reports: abdominal pain and nausea; Denies: vomiting, hematemesis, coffee ground emesis, heartburn, diarrhea, change in stool character, hematochezia or melena : Reports: flank pain; Denies: difficulty voiding, dysuria, urinary frequency, urinary urgency, urinary hesitancy, vaginal odor, vaginal bleeding or vaginal discharge Musc: Reports: back pain; Denies: neck pain, extremity pain, extremity swelling, joint pain or joint swelling Skin/Breast: Denies: rash Neuro: Denies: headache(s), weakness in extremities, sensory changes, difficulty walking or dizziness [facility] ED PFSH: Medical History (Updated 10/28/20 @ 12:48 by ADELITA Taylor) Abdominal pain Fever Trichomonal infection Social History Smoking and tobacco status: current every day smoker Female Reproductive History: Date of last menstrual period: 10/21/20 Physical Exam Const: COMMON NORMALS: patient oriented x3, no limitations and alert GENERAL APPEARANCE: cooperative ORIENTATION/CONSCIOUSNESS: Yes awake, Yes oriented to person, Yes oriented to place and Yes oriented to time HENMT: COMMON NORMALS: normocephalic and atraumatic HEAD & SCALP: normocephalic and atraumatic Resp: COMMON NORMALS: normal respiratory effort and clear to auscultation bilaterally AUSCULTATION: clear to auscultation bilaterally Cardio: COMMON NORMALS: regular rate and regular rhythm RATE: regular rate RHYTHM: regular rhythm GI: COMMON NORMALS: Normal to inspection, nondistended, normoactive bowel sounds present, Soft to palpation, No hepatosplenomegaly present and no masses PALPATION: Yes Soft to palpation, Yes Tenderness to palpation present (GI) (RUQ, LLQ), Yes Guarding due to palpation present (GI) and Yes No hepatosplenomegaly present : BLADDER/KIDNEY EXAM: Yes CVA tenderness (just above R CVA) Back/Pelvis: GENERAL BACK: Yes CVA tenderness (just above R CVA) OTHER: TTP across lower back; no midline tenderness Extremity: COMMON NORMALS: normal to inspection, full ROM, capillary refill normal, no joint enlargement, no clubbing, cyanosis or edema, no calf tenderness and no pedal edema GENERAL: Yes normal exam except as noted Neuro: GRICELDA COMA SCALE: document GCS findings Gricelda coma scale eye opening: Spontaneous [place] coma scale verbal response: Orientated Gricelda coma scale motor response: Obey commands Gricelda coma scale total score: 15 COMMON NORMALS: patient oriented x3 SENSORIUM/ORIENTATION: Yes alert, Yes oriented to person, Yes oriented to place and Yes oriented to time Skin: COMMON NORMALS: no rashes or lesions noted GENERAL SKIN EXAM: no rashes or lesions noted Course Vital Signs: Vital signs: Vital Signs Temperature 98.6 F 10/28/20 10:20 Pulse Rate 120 H 10/28/20 11:55 Respiratory Rate 18 10/28/20 11:55 Blood Pressure 102/64 10/28/20 11:55 Pulse Oximetry 97 10/28/20 11:55 MDM - Abdominal Pain MDM Narrative: Medical decision making narrative: Patient is a nice 24-year-old female who presented to ED today with a main complaint of right abdominal/flank pain. She has a mild leukocytosis at 11.4. She remains tachycardic in the 120s throughout her stay. This could be related to her methamphetamine use although she states she hasn't used in three days. Chemistry panel shows hyperglycemia at 175. Patient is not a diabetic that she is aware of although she states her twin sister was recently diagnosed with diabetes. She has no evidence of DKA-negative serum ketones/normal pH on her ABG. Her lactate is elevated at 2.8. UA showing UTI. US gallbladder was obtained due to her RUQ pain. This showed cholelithiasis without cholecystitis. CT abdomen/pelvis confirms suspected diagnosis of right pyelonephritis. She is ill-appearing on exam. I have offered patient admission into the hospital but she declines. She was given IV fluids and IV Rocephin here. She will be sent home on PO Cefdinir. She was given extremely strict precautions on returning to the emergency department. Lab Data: Labs: Lab Results 10/28/20 10/28/20 10/28/20 Range/Units 10:45 10:45 11:00 WBC 11.4 H (4.0-10.0) 10^3/ uL RBC 3.99 L (4.1-5.3) 10^6/u L Hgb 11.4 L (11.5-15.3) g/dL Hct 35.9 L (37.0-47.0) % MCV 90.0 (81-99) fL MCH 28.6 (28.0-34.0) pg MCHC 31.8 (30.0-36.0) g/dL RDW 12.7 (12.1-15.1) % Plt Count 272 (130-400) 10^3/c mm MPV 9.3 (7.4-10.4) fL Neut % (Auto) 80.9 % Lymph % (Auto) 10.0 % [place] % (Auto) 8.2 % Eos % (Auto) 0.3 % Baso % (Auto) 0.3 % Neut # (Auto) 9.23 H (1.8-7.7) 10^3/u L Lymph # (Auto) 1.1 (0.8-4.8) 10^3/u L [place] # (Auto) 0.9 (0.2-0.9) 10^3/u L Eos # (Auto) 0.0 (0.0-0.8) 10^3/u L Baso # (Auto) 0.0 (0.0-0.1) 10^3/u L Nucleated RBC % (a uto) 0 % Nucleated RBCs # 0.0 /100WBC Specimen Type Sample Site ABG pH (7.35-7.45) ABG pCO2 (35-45) mmHg ABG pO2 (80.0-100.0) mmH g ABG HCO3 (22-26) mmol/L ABG O2 Saturation ABG Base Excess (-2.0-2.0) mmol/ L Bishop Test A-a O2 Gradient (5-10) mmHg Hematocrit (37-47) % Hgb O2 Saturation (95-100) % Carboxyhemoglobin (0.4-20.1) %THgb Methemoglobin (0.4-1.5) % Total Hemoglobin (12-16) g/dL Ionized Calcium (1.1-1.4) mmol/L O2 Delivery Device FiO2 % [facility] Assist[facility] Teacher ID Sodium (136-145) mmol/L Potassium (3.5-5.1) mmol/L Chloride (98-107) mmol/L Carbon Dioxide (22-29) mmol/L Anion Gap (5-19) BUN (6-20) mg/dL Creatinine (0.5-0.9) mg/dL GFR Calculation (90-130) mL/min Glucose (65-115) mg/dL Calculated Osmolal ity (285-295) mOsm/k g Lactic Acid (0.5-2.2) mmol/L Calcium (8.5-10.5) mg/dL Total Bilirubin (0.15-1.2) mg/dL AST (0-32) U/L ALT (0-33) U/L Alkaline Phosphata se (35-105) IU/L Total Protein (6.6-8.7) g/dL Albumin (3.5-5.2) g/dL Globulin (1.3-4.6) g/dL Lipase (13-60) U/L HCG, Qual (Negative) Urine Color Dark yellow (Yellow) Urine Appearance Cloudy (CLEAR) Urine pH 6 (5-7) Ur Specific Gravit y 1.020 (1.005-1.030) Urine Protein Trace (Negative) Urine Glucose (UA) Norm (Normal) Urine Ketones 2+ H (Negative) Urine Blood 2+ H (Negative) Urine Nitrate Negative (Negative) Urine Bilirubin Neg (Negative) Urine Urobilinogen Norm (Negative) mg/dL Ur Leukocyte Autumn ase Trace H (Negative) Urine RBC 0-4 H (0-2) /hpf Urine WBC 25-40 H (0-5) /hpf Ur Squamous Epith Cells 0-4 H (0-5) /hpf Amorphous Sediment Not Reportable Urine Bacteria 4+ H (NONE) /hpf Urine Opiates Scre en Negative (Negative) ng/mL Ur Barbiturates Sc reen Negative (Negative) ng/mL Ur Phencyclidine S crn Negative (Negative) ng/mL Ur Amphetamines Sc reen Positive H (Negative) ng/mL U Benzodiazepines Scrn Negative (Negative) ng/mL Urine Cocaine Scre en Negative (Negative) ng/mL U Marijuana (THC) Screen Positive H (Negative) ng/mL Serum Ketones (Negative) 10/28/20 10/28/20 10/28/20 Range/Units 11:00 11:00 11:00 WBC (4.0-10.0) 10^3/ uL RBC (4.1-5.3) 10^6/u L Hgb (11.5-15.3) g/dL Hct (37.0-47.0) % MCV (81-99) fL MCH (28.0-34.0) pg MCHC (30.0-36.0) g/dL RDW (12.1-15.1) % Plt Count (130-400) 10^3/c mm MPV (7.4-10.4) fL Neut % (Auto) % Lymph % (Auto) % [place] % (Auto) % Eos % (Auto) % Baso % (Auto) % Neut # (Auto) (1.8-7.7) 10^3/u L Lymph # (Auto) (0.8-4.8) 10^3/u L [place] # (Auto) (0.2-0.9) 10^3/u L Eos # (Auto) (0.0-0.8) 10^3/u L Baso # (Auto) (0.0-0.1) 10^3/u L Nucleated RBC % (a uto) % Nucleated RBCs # /100WBC Specimen Type Sample Site ABG pH (7.35-7.45) ABG pCO2 (35-45) mmHg ABG pO2 (80.0-100.0) mmH g ABG HCO3 (22-26) mmol/L ABG O2 Saturation ABG Base Excess (-2.0-2.0) mmol/ L Bishop Test A-a O2 Gradient (5-10) mmHg Hematocrit (37-47) % Hgb O2 Saturation (95-100) % Carboxyhemoglobin (0.4-20.1) %THgb Methemoglobin (0.4-1.5) % Total Hemoglobin (12-16) g/dL Ionized Calcium (1.1-1.4) mmol/L O2 Delivery Device FiO2 % [facility] Assist[facility] Teacher ID Sodium 132 L (136-145) mmol/L Potassium 3.7 (3.5-5.1) mmol/L Chloride 93 L (98-107) mmol/L Carbon Dioxide 29 (22-29) mmol/L Anion Gap 13.7 (5-19) BUN 9 (6-20) mg/dL Creatinine 0.7 (0.5-0.9) mg/dL GFR Calculation 101.1 (90-130) mL/min Glucose 175 H (65-115) mg/dL Calculated Osmolal ity 277 L (285-295) mOsm/k g Lactic Acid 2.8 H (0.5-2.2) mmol/L Calcium 8.8 (8.5-10.5) mg/dL Total Bilirubin 0.4 (0.15-1.2) mg/dL AST 12 (0-32) U/L ALT 26 (0-33) U/L Alkaline Phosphata se 121 H (35-105) IU/L Total Protein 7.1 (6.6-8.7) g/dL Albumin 3.9 (3.5-5.2) g/dL Globulin 3.2 (1.3-4.6) g/dL Lipase 9 L (13-60) U/L HCG, Qual Negative (Negative) Urine Color (Yellow) Urine Appearance (CLEAR) Urine pH (5-7) Ur Specific Gravit y (1.005-1.030) Urine Protein (Negative) Urine Glucose (UA) (Normal) Urine Ketones (Negative) Urine Blood (Negative) Urine Nitrate (Negative) Urine Bilirubin (Negative) Urine Urobilinogen (Negative) mg/dL Ur Leukocyte Autumn ase (Negative) Urine RBC (0-2) /hpf Urine WBC (0-5) /hpf Ur Squamous Epith Cells (0-5) /hpf Amorphous Sediment Urine Bacteria (NONE) /hpf Urine Opiates Scre en (Negative) ng/mL Ur Barbiturates Sc reen (Negative) ng/mL Ur Phencyclidine S crn (Negative) ng/mL Ur Amphetamines Sc reen (Negative) ng/mL U Benzodiazepines Scrn (Negative) ng/mL Urine Cocaine Scre en (Negative) ng/mL U Marijuana (THC) Screen (Negative) ng/mL Serum Ketones (Negative) 10/28/20 10/28/20 Range/Units 11:00 12:24 WBC (4.0-10.0) 10^3/ uL RBC (4.1-5.3) 10^6/u L Hgb (11.5-15.3) g/dL Hct (37.0-47.0) % MCV (81-99) fL MCH (28.0-34.0) pg MCHC (30.0-36.0) g/dL RDW (12.1-15.1) % Plt Count (130-400) 10^3/c mm MPV (7.4-10.4) fL Neut % (Auto) % Lymph % (Auto) % [place] % (Auto) % Eos % (Auto) % Baso % (Auto) % Neut # (Auto) (1.8-7.7) 10^3/u L Lymph # (Auto) (0.8-4.8) 10^3/u L [place] # (Auto) (0.2-0.9) 10^3/u L Eos # (Auto) (0.0-0.8) 10^3/u L Baso # (Auto) (0.0-0.1) 10^3/u L Nucleated RBC % (a uto) % Nucleated RBCs # /100WBC Specimen Type Arterial Sample Site Brachial, right ABG pH 7.42 (7.35-7.45) ABG pCO2 44.1 (35-45) mmHg ABG pO2 83.5 (80.0-100.0) mmH g ABG HCO3 28.4 H (22-26) mmol/L ABG O2 Saturation 97.4 ABG Base Excess 3.4 H (-2.0-2.0) mmol/ L Bishop Test Pos A-a O2 Gradient 1.7 L (5-10) mmHg Hematocrit 34.1 L (37-47) % Hgb O2 Saturation 94.8 L (95-100) % Carboxyhemoglobin 1.7 (0.4-20.1) %THgb Methemoglobin 1.0 (0.4-1.5) % Total Hemoglobin 11.1 L (12-16) g/dL Ionized Calcium 1.2 (1.1-1.4) mmol/L O2 Delivery Device Room air FiO2 21.0 % [facility] Assist[facility] Teacher ID [place] Sodium 131.0 (136-145) mmol/L Potassium 3.9 (3.5-5.1) mmol/L Chloride (98-107) mmol/L Carbon Dioxide (22-29) mmol/L Anion Gap (5-19) BUN (6-20) mg/dL Creatinine (0.5-0.9) mg/dL GFR Calculation (90-130) mL/min Glucose 112.0 (65-115) mg/dL Calculated Osmolal ity (285-295) mOsm/k g Lactic Acid (0.5-2.2) mmol/L Calcium (8.5-10.5) mg/dL Total Bilirubin (0.15-1.2) mg/dL AST (0-32) U/L ALT (0-33) U/L Alkaline Phosphata se (35-105) IU/L Total Protein (6.6-8.7) g/dL Albumin (3.5-5.2) g/dL Globulin (1.3-4.6) g/dL Lipase (13-60) U/L HCG, Qual (Negative) Urine Color (Yellow) Urine Appearance (CLEAR) Urine pH (5-7) Ur Specific Gravit y (1.005-1.030) Urine Protein (Negative) Urine Glucose (UA) (Normal) Urine Ketones (Negative) Urine Blood (Negative) Urine Nitrate (Negative) Urine Bilirubin (Negative) Urine Urobilinogen (Negative) mg/dL Ur Leukocyte Autumn ase (Negative) Urine RBC (0-2) /hpf Urine WBC (0-5) /hpf Ur Squamous Epith Cells (0-5) /hpf Amorphous Sediment Urine Bacteria (NONE) /hpf Urine Opiates Scre en (Negative) ng/mL Ur Barbiturates Sc reen (Negative) ng/mL Ur Phencyclidine S crn (Negative) ng/mL Ur Amphetamines Sc reen (Negative) ng/mL U Benzodiazepines Scrn (Negative) ng/mL Urine Cocaine Scre en (Negative) ng/mL U Marijuana (THC) Screen (Negative) ng/mL Serum Ketones Negative (Negative) Imaging Data ^: US gallbladder: Radiologist's impression: [facility] [address] Ultrasound Report Signed Patient: Noé Hoyos #: [id number] : 1995Acct#:[id number] Age/Sex: 24 / FADM Date: 10/28/20 Loc: ERRoom/Bed: Attending Dr: Ordering Provider/Ordering MD: Nina Hwang Date of Service: 10/28/20 Procedure(s): US gall bladder [id number] Accession Number(s): [id number] Report Number: [id number] WS: [id number] ULTRASOUND ABDOMEN LIMITED CLINICAL INFORMATION: RUQ pain COMPARISON: None. FINDINGS: Liver Size: Normal. Craniocaudal length: 15.6 cm. Echogenicity: Normal. Surface nodularity: None. Mass (size and location): None. Hepatopedal flow Bile ducts Intrahepatic ducts: Normal. Common bile duct diameter: 0.3 cm. Gallbladder Mobile gallbladder calculi Gallstones: Present Gallbladder sludge: None. Gallbladder wall thickening: None. Pericholecystic fluid: None. Sonographic Altamirano sign: Absent. Pancreas Normal as visualized. Right kidney: Normal. Hydronephrosis: None. Size: 11.3 cm x 6.6 cm x 4.3 cm. Abdominal aorta and IVC Visualized portions are normal. Ascites: None. US/US gall bladder [id number] IMPRESSION: 1. Liver is normal. 2. Mobile calculi within the gallbladder. No gallbladder wall thickening or pericholecystic fluid. 3. No hydronephrosis in right kidney. 4. Normal common bile duct. Dictated By:Marcello Pierson MD Signed By:Marcello Pierson MDSigned Date/Time:10/28/20 1146 DD/ 1140 CT Abd/Pel: Radiologist's impression: [facility] [address] [place] [address] CT Scan Report Signed Patient: Noé Hoyos #: [id number] : 1995Acct#:[id number] Age/Sex: 24 / FADM Date: 10/28/20 Loc: ERRoom/Bed: Attending Dr: Ordering Provider/Ordering MD: Nina Hwang Date of Service: 10/28/20 Procedure(s): CT abdomen pelvis w con* [id number] Accession Number(s): [id number] Report Number: [id number] WS: [id number] CT ABDOMEN PELVIS TECHNIQUE: Contrast-enhanced CT of the abdomen and pelvis with coronal and sagittal reformatted images. CLINICAL INFORMATION: RUQ, LLQ pain; reporting L LE paresthesias COMPARISON: CT , 11 015, and 9 015 DLP: 252.[address] scans at [facility] use at least one of these dose optimization techniques: automated exposure control; mA and/or kV adjustment per patient size (includes targeted exams where dose is matched to clinical indication); or iterative reconstruction. FINDINGS: Mild diffuse fatty infiltration liver. Normal gallbladder. Normal spleen. Normal GE junction. Lung bases are well aerated. Normal caliber abdominal aorta. No free fluid in the abdomen or pelvis. Several areas of heterogeneous decreased enhancement in the upper pole right kidney extending to the cortex suspicious for prior cortical infarcts or pyelonephritis. Recommend correlation for urinary tract symptoms. No hydronephrosis in either kidney. Normal left renal parenchymal enhancement. Appendix is not well visualized. No periaortic or retroperitoneal lymphadenopathy. No inguinal lymphadenopathy. Tiny fat-containing umbilical hernia. CT/CT abdomen pelvis w con* [id number] IMPRESSION: 1. Heterogeneous areas of decreased attenuation upper pole right kidney consistent with prior cortical infarcts and/or pyelonephritis. Recommend correlation for acute urinary tract symptoms. 2. No inflammatory stranding about the right kidney. No hydronephrosis in either kidney. 3. No free fluid in the abdomen or pelvis. 4. Mild diffuse fatty infiltration liver. 5. No other significant findings. Dictated By:Marcello Pierson MD Signed By:Marcello Pierson MDSigned Date/Time:10/28/20 1206 DD/ 1152 Discharge Plan Discharge Patient Disposition: Home Clinical Impression: Pyelonephritis of right kidney, Hyperglycemia Sepsis Qualifiers: Sepsis type: sepsis due to unspecified organism Sepsis acute organ dysfunction status: unspecified Qualified Code(s): A41.9 - Sepsis, unspecified organism Condition: Stable Prescriptions: New cefdinir 300 mg capsule 300 mg PO BID 10 Days Qty: 20 RF: 0 hydrocodone-acetaminophen 5-325 mg tablet 1 tab PO Q4H PRN (Reason: pain) Qty: 15 RF: 0 ondansetron HCl [Zofran] 4 mg tablet 4 mg PO Q6H PRN (Reason: nausea and vomiting) Qty: 14 RF: 0 No Action ibuprofen 200 mg Tablet 200 mg PO Q6H PRN (Reason: Pain) RF: 0 Discharge Orders: Discharge ED (Routine); Ordered 10/28/20 Ordered By: iNna Hwang Patient Instructions: Hyperglycemia, Sepsis (GEN), Diabetic Hyperglycemia (ED), Pyelonephritis Activity Restrictions/Additional Instructions: As we discussed you have an infection of your right kidney. These infections have the potential to make patients very sick. I have offered you admission into the hospital at this time but you have declined. You need to fill your antibiotics today and get started on them immediately. I have also written you for pain and nausea medications. You need to return to the emergency department immediately for worsening flank pain, worsening abdominal pain, vomiting/inability to keep down your antibiotics, continued fevers, or any other concerns you may have. I hope you begin to feel better soon. As we discussed you also need to follow-up with primary care as soon as possible for evaluation of possible new onset diabetes. Coding Level of Care Code ED Community Engagement Specialist for Brian Fwd Exam Comprehensive
--- NOTE | 2020-10-28 10:47 | CT_ITS ---
WS: [id number] CT ABDOMEN PELVIS TECHNIQUE: Contrast-enhanced CT of the abdomen and pelvis with coronal and sagittal reformatted image s. CLINICAL INFORMATION: RUQ, LLQ pain; reporting L LE paresthesias COMPARISON: CT , , and DLP: 252.[address] scans at [facility] use at least one of these dose optimization techniques: automat ed exposure control; mA and/or kV adjustment per patient size (includes targeted exams where dose is matched to clinical indication); or iterative reconstruction. FINDINGS: Mild diffuse fatty infiltration liver. Normal gallbladder. Normal spleen. Normal GE junction. Lung ba ses are well aerated. Normal caliber abdominal aorta. No free fluid in the abdomen or pelvis. Several areas of heterogeneous decreased enhancement in the upper pole right kidney extending to the cortex suspicious for prior cortical infarcts or pyelonephritis. Recommend correlation for urinary tract sym ptoms. No hydronephrosis in either kidney. Normal left renal parenchymal enhancement. Appendix is not well visualized. No periaortic or retroperitoneal lymphadenopathy. No inguinal lymphadenopathy. Tiny fat-containing um bilical hernia. CT/CT abdomen pelvis w con* [id number] IMPRESSION: 1. Heterogeneous areas of decreased attenuation upper pole right kidney consis tent with prior cortical infarcts and/or pyelonephritis. Recommend correlation for acute urinary tract symptoms. 2. No inflammatory stranding about the right kidney. No hydronephrosis in eith er kidney. 3. No free fluid in the abdomen or pelvis. 4. Mild diffuse fatty infiltration liver. 5. No other significant findings.
--- NOTE | 2020-10-28 10:47 | US_ITS ---
WS: [id number] ULTRASOUND ABDOMEN LIMITED CLINICAL INFORMATION: RUQ pain COMPARISON: None. FINDINGS: Liver Size: Normal. Craniocaudal length: 15.6 cm. Echogenicity: Normal. Surface nodularity: None. Mass (size and location): None. Hepatopedal flow Bile ducts Intrahepatic ducts: Normal. Common bile duct diameter: 0.3 cm. Gallbladder Mobile gallbladder calculi Gallstones: Present Gallbladder sludge: None. Gallbladder wall thickening: None. Pericholecystic fluid: None. Sonographic Altamirano sign: Absent. Pancreas Normal as visualized. Right kidney: Normal. Hydronephrosis: None. Size: 11.3 cm x 6.6 cm x 4.3 cm. Abdominal aorta and IVC Visualized portions are normal. Ascites: None. US/US gall bladder [id number] IMPRESSION: 1. Liver is normal. 2. Mobile calculi within the gallbladder. No gallbladder wall thickening or pe richolecystic fluid. 3. No hydronephrosis in right kidney. 4. Normal common bile duct.
[2020-10-28] MEDS: morphine 4 mg/mL SDV 1 mL IVP (11:00)
[2020-10-28 11:10] LABS: Basophils % 0.3 %; Eosinophils % 0.3 %; Hematocrit 35.9 % (37.0-47.0); Hemoglobin 11.4 g/dL (11.5-15.3); Lymphocytes # 1.1 10^3/uL (0.8-4.8); Mean Corpuscular HGB Conc 31.8 g/dL (30.0-36.0); Mean Corpuscular Hemoglobin 28.6 pg (28.0-34.0); Mean Platelet Volume 9.3 fL (7.4-10.4); Monocytes # 0.9 10^3/uL (0.2-0.9); Monocytes % 8.2 %; Neutrophils # 9.23 10^3/uL (1.8-7.7); Neutrophils % 80.9 %; Nucleated Red Blood Cells % 0 %; Platelet Count 272 10^3/cmm (130-400); Red Blood Count 3.99 10^6/uL (4.1-5.3); Red Cell Distribution Width 12.7 % (12.1-15.1); White Blood Count 11.4 10^3/uL (4.0-10.0)
[2020-10-28 11:27] LABS: Amphetamines Screen Urine Positive (Negative); Barbiturates Screen Urine Negative (Negative); Benzodiazepines Screen Urine Negative (Negative); Cocaine Screen Urine Negative (Negative); Opiate Screen Urine Negative (Negative); PCP Screen Urine Negative (Negative); THC Screen Urine Positive (Negative)
[2020-10-28 11:32] LABS: HCG, Serum Qual Negative (Negative)
[2020-10-28 11:32] LABS: Protein Urine Trace (Negative); Urine Appearance Cloudy (CLEAR); Urine Color Dark Yellow (Yellow); pH Urine 6 (5-7)
[2020-10-28 11:33] LABS: Add Urine Microscopic? YES; Bilirubin Urine Neg (Negative); Blood Urine 2+ (Negative); Glucose Urine UA Norm (Normal); Ketones Urine 2+ (Negative); Leukocyte Esterase Urine Trace (Negative); Nitrate Urine Negative (Negative); Urobilinogen Urine Norm (Negative)
[2020-10-28 11:34] LABS: Add Urine Culture? Yes; Bacteria Urine 4+ /hpf; RBC Urine 0-4 /hpf (0-2); Squamous Epithelial Cell Urine 0-4 /hpf (0-5); WBC Urine 25-40 /hpf (0-5)
[2020-10-28 11:37] LABS: Alanine Aminotransferase 26 U/L (0-33); Albumin Level 3.9 g/dL (3.5-5.2); Alkaline Phosphatase 121 IU/L (35-105); Anion Gap 13.7 (5-19); Aspartate Amino Transferase 12 U/L (0-32); Blood Urea Nitrogen 9 mg/dL (6-20); Calcium 8.8 mg/dL (8.5-10.5); Carbon Dioxide 29 mmol/L (22-29); Chloride 93 mmol/L (98-107); Globulin 3.2 g/dL (1.3-4.6); Glomerular Filtration Rate 101.1 mL/min (90-130); Glucose 175 mg/dL (65-115); Lipase 9 U/L (13-60); Osmolality Calculated 277 mOsm/kg (285-295); Potassium 3.7 mmol/L (3.5-5.1); Sodium 132 mmol/L (136-145); Total Bilirubin 0.4 mg/dL (0.15-1.2); Total Protein 7.1 g/dL (6.6-8.7)
[2020-10-28 11:38] LABS: Lactic Sepsis W/Reflex 2.8 mmol/L (0.5-2.2)
[2020-10-28] MEDS: iohexol 300 mg/mL 100 mL Btl IV (11:48)
[2020-10-28 11:49] LABS: Ketone (Acetest) Serum Negative (Negative)
[2020-10-28] MEDS: cefTRIAXone 1,000 MG in sodium chloride 0.9% (plus) 50 ML 100 MG IV (11:52)
[2020-10-28] MEDS: sodium chloride 0.9% 1,000 ML 999 ML IV (11:54)
[2020-10-28] MEDS: ondansetron 2 mg/ML SDV 2 mL 4 MG IVP (11:59)
[2020-10-28 12:37] LABS: ABG PCO2 44.1 mmHg (35-45); ABG PH Result 7.42 (7.35-7.45); Alveolar-Arterial Oxygen Gradi 1.7 mmHg (5-10); Arterial Blood Gas Hematocrit 34.1 % (37-47); Base Excess ABG 3.4 mmol/L (-2.0-2.0); Blood Gas Allen Test Pos; Blood Gas Operator Identificat MONRO; Blood Gas Sample Site Brachial, right; Blood Gas Sample Type Arterial; Carboxyhemoglobin 1.7 %THgb (0.4-20.1); HCO3 ABG 28.4 mmol/L (22-26); HGB O2 Sat 94.8 % (95-100); Ionized Calcium Level - ABG 1.2 mmol/L (1.1-1.4); Oxygen Device ROOM AIR; Oxygen Saturation ABG 97.4; PO2 ABG 83.5 mmHg (80.0-100.0); Potassium Level - ABG 3.9 mmol/L (3.5-5.0); Total Hemoglobin 11.1 g/dL (12-16)
[2020-10-28 12:55] LABS: Reflex Lactate Order REFLEX LACTIC ORDERD
[2020-10-28] MEDS: fentaNYL 50 mcg/mL INJ 2mL IVP (13:48)
== END 2020-10-28 14:53 | disposition home or self-care (01) ==
PROVIDERS: Emergency Provider Physician Assistant
DX: A41.9 Sepsis, unspecified organism (principal); N12 Tubulo-interstitial nephritis, not specified as acute or chronic; R73.9 Hyperglycemia, unspecified; F17.210 Nicotine dependence, cigarettes, uncomplicated
CPT/HCPCS: 12345; 36600; 74177; 76705; 80051; 80053; 80306; 81001; 82009; 82330; 82805; 83605; 83690; 84703; 85025; 87077; 87086; 87186; 96365; 96375; 99282; 99284; J0131; J0696; J2270; J2405; J3010; J7030; Q9967

== ENCOUNTER 2020-10-28 18:35 | Emergency (ER) | payer SELFPAY ==
[2020-10-28 18:51] VITALS: BP 116/76; PULSE 132; RESP 14; TEMP 36.9; O2SAT 98; BMI 20.5
--- NOTE | 2020-10-28 18:51 | XRR_ITS ---
PROCEDURE INFORMATION: Exam: XR Chest, 1 View Exam date and time: 10/28/2020 6:55 PM Age: 24 years old Clinical indication: Fever; Patient HX: Right sided abd pain TECHNIQUE: Imaging protocol: XR of the chest Views: 1 view. Other technique: Frontal portable upright view of the chest. COMPARISON: CR XR chest 1V portable [id number] 07/22/2020 3:33 PM FINDINGS: Lungs: The lungs are clear bilaterally. The pulmonary vasculature is normal. Pleural space: No pleural effusion. No pneumothorax. Heart/Mediastinum: The heart is normal in size and contour. Mediastinum: Stable. Bones/joints: Stable. XR/XR chest 1V portable [id number] IMPRESSION: No acute cardiopulmonary abnormality identified.
--- NOTE | 2020-10-28 18:52 | ECG_ITS ---
[facility] Test Date: 2020-10-28 Pat Name: Noé Hoyos Department: Room: Gender: Female Tariff Counsel: : 1995 Requested By: Emily oGldman Order Number: [id number] Nataly MD: Natalia Nelson M.D. Measurements Intervals [place] Rate: 114 P: 51 WV: 128 QRS: 62 QRSD: 76 T: 49 QT: 290 QTc: 401 Interpretive Statements SINUS TACHYCARDIA ABNORMAL RHYTHM ECG INTERPRETATION BASED ON A DEFAULT AGE OF 40 YEARS Compared to ECG 07/22/2020 15:37:56 No significant changes Electronically Signed On 10-29-2020 21:31:43 FINISHER MACHINE by Natalia Nelson M.D. [email or web address]
--- NOTE | 2020-10-28 18:52 | ED_ITS ---
HPI - General Adult General: Chief complaint: General Medical Stated complaint: elevated heartrate, kidney infection Time Seen by Provider: 10/28/20 18:49 Source: patient Mode of arrival: ambulatory Limitations: no limitations History of Present Illness: HPI narrative: 24-year-old female who was seen here earlier and was diagnosed with a pyelonephritis. She was tachycardic and having vomiting was offered admission at that time but she signed out AGAINST MEDICAL ADVICE. She states since being home she has felt worse and is continued to have pain in nausea. She states she feels like she probably needs to be admitted. She denies any diarrhea. States her flank pain currently is a 9 out of 10. Associated symptoms: Deny chest pain, dyspnea, headache(s), nausea, rash or vomiting Review of Systems Const: Reports: fever(s) Eyes: Denies: blurry vision or eye discomfort ENMT: Denies: throat pain or dental pain Card: Denies: chest pain Resp: Denies: dyspnea GI: Denies: abdominal pain, nausea, vomiting or diarrhea : Reports: flank pain, dysuria and urinary urgency Musc: Denies: neck pain or back pain Skin/Breast: Denies: rash Neuro: Denies: headache(s) Psych: Denies: depression Bradly/Lymph: Denies: easy bruising All/Imm: Denies: urticaria PFSH ED PFSH: Medical History (Updated 10/28/20 @ 20:47 by Emily Goldman MD) Abdominal pain Fever Trichomonal infection Social History Smoking and tobacco status: current every day smoker Female Reproductive History: Date of last menstrual period: 10/21/20 Physical Exam Const: COMMON NORMALS: no acute distress, patient oriented x3 and healthy appearing HENMT: COMMON NORMALS: normocephalic and atraumatic HEAD & SCALP: normocephalic and atraumatic Eye: COMMON NORMALS: Equal, round and reactive pupils present and EOMs intact bilaterally PUPIL: Yes Equal, round and reactive pupils present Neck/C-Spine: COMMON NORMALS: full ROM and supple Chest: COMMONS NORMALS: normal inspection of the chest and normal palpation of entire chest wall Resp: COMMON NORMALS: normal respiratory effort, No retractions, No use of accessory muscles and clear to auscultation bilaterally AUSCULTATION: clear to auscultation bilaterally Cardio: COMMON NORMALS: regular rate, regular rhythm and No murmurs present (Cardio) RATE: regular rate RHYTHM: regular rhythm GI: COMMON NORMALS: Normal to inspection, nondistended, normoactive bowel sounds present, Soft to palpation, non-tender and no masses PALPATION: Yes Soft to palpation OTHER: right cva tenderness Extremity: COMMON NORMALS: normal to inspection and full ROM Neuro: COMMON NORMALS: patient oriented x3, moves all extremities and no focal motor deficits Psych: COMMON NORMALS: mental status grossly normal, Normal thought process present and cooperative THOUGHT PROCESS: Normal thought process present Skin: COMMON NORMALS: no rashes or lesions noted and no wounds GENERAL SKIN EXAM: no rashes or lesions noted Course Vital Signs: Vital signs: Vital Signs Temperature 98.4 F 10/28/20 18:51 Pulse Rate 105 H 10/28/20 20:41 Respiratory Rate 16 10/28/20 20:41 Blood Pressure 97/60 10/28/20 20:41 Pulse Oximetry 98 10/28/20 20:41 MDM - General Adult MDM Narrative: Medical decision making narrative: Patient presents here with flank pain. I did review her CT from earlier today that showed slight pyelonephritis. Patient's white cell count and lactate here are normal. Her heart rate is improved and she is not febrile. She has had no vomiting. Patient was demanding to be admitted but I informed her she is not vomiting her white count and lactate are normal and she was under pain control here. I informed her I recommend her to trial oral antibiotics as she meets outpatient treatment criteria and I do not believe she meets admission criteria at this time unless she fails outpatient treatment. I informed her she starts having vomiting or worsening fever she is to return. She is stable for discharge. Lab Data: Labs: Lab Results 10/28/20 10/28/20 10/28/20 Range/Units 19:16 19:16 19:16 WBC 12.1 H (4.0-10.0) 10^3/ uL RBC 3.72 L (4.1-5.3) 10^6/u L Hgb 10.5 L (11.5-15.3) g/dL Hct 33.9 L (37.0-47.0) % MCV 91.1 (81-99) fL MCH 28.2 (28.0-34.0) pg MCHC 31.0 (30.0-36.0) g/dL RDW 12.8 (12.1-15.1) % Plt Count 280 (130-400) 10^3/c mm MPV 9.4 (7.4-10.4) fL Neut % (Auto) 71.4 % Lymph % (Auto) 15.9 % [place] % (Auto) 12.0 % Eos % (Auto) 0.3 % Baso % (Auto) 0.2 % Neut # (Auto) 8.64 H (1.8-7.7) 10^3/u L Lymph # (Auto) 1.9 (0.8-4.8) 10^3/u L [place] # (Auto) 1.5 H (0.2-0.9) 10^3/u L Eos # (Auto) 0.0 (0.0-0.8) 10^3/u L Baso # (Auto) 0.0 (0.0-0.1) 10^3/u L Nucleated RBC % (a uto) 0 % Nucleated RBCs # 0.0 /100WBC Sodium 132 L (136-145) mmol/L Potassium 4.0 (3.5-5.1) mmol/L Chloride 98 (98-107) mmol/L Carbon Dioxide 27 (22-29) mmol/L Anion Gap 11.0 (5-19) BUN 5 L (6-20) mg/dL Creatinine 0.6 (0.5-0.9) mg/dL GFR Calculation 120.8 (90-130) mL/min Glucose 128 H (65-115) mg/dL Calculated Osmolal ity 273 L (285-295) mOsm/k g Lactate 1.4 (0.5-2.2) mmol/L Calcium 8.2 L (8.5-10.5) mg/dL Total Bilirubin 0.3 (0.15-1.2) mg/dL AST 20 (0-32) U/L ALT 29 (0-33) U/L Alkaline Phosphata se 137 H (35-105) IU/L Total Protein 6.5 L (6.6-8.7) g/dL Albumin 3.5 (3.5-5.2) g/dL Globulin 3.0 (1.3-4.6) g/dL Lipase 11 L (13-60) U/L Imaging Data^: CXR: Attestation: I personally reviewed and interpreted this imaging study as follows: My impression: no acute abnormality EKG Data^: EKG 1: Attestation: I personally reviewed and interpreted this EKG as follows: EKG interpretation date: 10/28/20 EKG interpretation time: 19:16 Interpretation: sinus tach hr [address] or t wave abnormalities qrs 76 qtc 358 Discharge Plan Discharge Patient Disposition: Home Clinical Impression: Pyelonephritis Condition: Stable Prescriptions: No Action ibuprofen 200 mg Tablet 200 mg PO Q6H PRN (Reason: Pain) RF: 0 cefdinir 300 mg capsule 300 mg PO BID 10 Days Qty: 20 RF: 0 hydrocodone-acetaminophen 5-325 mg tablet 1 tab PO Q4H PRN (Reason: pain) Qty: 15 RF: 0 Zofran 4 mg tablet 4 mg PO Q6H PRN (Reason: nausea and vomiting) Qty: 14 RF: 0 Discharge Orders: Discharge ED (Routine); Ordered 10/28/20 Ordered By: Emily Goldman Discharge Diet: Advance as tolerated Discharge Activity: Resume usual activity Patient Instructions: Acute Pyelonephritis (ED) Coding Level of Care Code ED Shaker Screen Operator for Sailajag Fwd Exam Comprehensive
[2020-10-28 19:28] VITALS: BP 98/54; PULSE 87; RESP 18; O2SAT 99
[2020-10-28] MEDS: sodium chloride 0.9% 1,000 ML 999 ML IV ×2 (19:29→20:38)
[2020-10-28 19:40] LABS: Basophils % 0.2 %; Eosinophils % 0.3 %; Hematocrit 33.9 % (37.0-47.0); Hemoglobin 10.5 g/dL (11.5-15.3); Lymphocytes # 1.9 10^3/uL (0.8-4.8); Lymphocytes % 15.9 %; Mean Corpuscular Hemoglobin 28.2 pg (28.0-34.0); Mean Corpuscular Volume 91.1 fL (81-99); Mean Platelet Volume 9.4 fL (7.4-10.4); Monocytes # 1.5 10^3/uL (0.2-0.9); Neutrophils # 8.64 10^3/uL (1.8-7.7); Neutrophils % 71.4 %; Nucleated Red Blood Cells % 0 %; Platelet Count 280 10^3/cmm (130-400); Red Blood Count 3.72 10^6/uL (4.1-5.3); Red Cell Distribution Width 12.8 % (12.1-15.1); White Blood Count 12.1 10^3/uL (4.0-10.0)
[2020-10-28 19:51] LABS: Lactate (Lactic Acid level) 1.4 mmol/L (0.5-2.2)
[2020-10-28 19:52] LABS: Alanine Aminotransferase 29 U/L (0-33); Albumin Level 3.5 g/dL (3.5-5.2); Alkaline Phosphatase 137 IU/L (35-105); Aspartate Amino Transferase 20 U/L (0-32); Blood Urea Nitrogen 5 mg/dL (6-20); Calcium 8.2 mg/dL (8.5-10.5); Carbon Dioxide 27 mmol/L (22-29); Chloride 98 mmol/L (98-107); Creatinine Clr Calc Pharmacy 113.0069; Glomerular Filtration Rate 120.8 mL/min (90-130); Glucose 128 mg/dL (65-115); Lipase 11 U/L (13-60); Osmolality Calculated 273 mOsm/kg (285-295); Sodium 132 mmol/L (136-145); Total Bilirubin 0.3 mg/dL (0.15-1.2); Total Protein 6.5 g/dL (6.6-8.7)
[2020-10-28 20:00] VITALS: BP 111/57; PULSE 80; RESP 17; O2SAT 99
[2020-10-28] MEDS: cefTRIAXone 1,000 MG in sodium chloride 0.9% (plus) 50 ML 100 MG IV (20:38)
[2020-10-28 20:39] VITALS: RESP 17; O2SAT 98
[2020-10-28] MEDS: morphine 4 mg/mL SDV 1 mL IVP (20:39)
[2020-10-28 20:41] VITALS: BP 97/60; PULSE 105; RESP 16; O2SAT 98
[2020-10-28 21:49] VITALS: BP 99/62; PULSE 111; RESP 30; O2SAT 97
== END 2020-10-28 21:49 | disposition home or self-care (01) ==
PROVIDERS: Emergency Provider Emergency Medicine
DX: N12 Tubulo-interstitial nephritis, not specified as acute or chronic (principal); R10.9 Unspecified abdominal pain; F17.210 Nicotine dependence, cigarettes, uncomplicated
CPT/HCPCS: 12345; 71045; 80053; 83605; 83690; 85025; 93005; 96361; 96365; 96375; 99283; 99284; J0696; J2270; J7030

== ENCOUNTER 2021-01-11 23:44 | Emergency (ER) | payer MEDICAID, SELFPAY ==
[2021-01-12 00:03] VITALS: BP 132/67; PULSE 119; RESP 18; TEMP 36.8; O2SAT 98; BMI 20.5
--- NOTE | 2021-01-12 00:12 | ECG_ITS ---
[facility] Test Date: 2021-01-12 Pat Name: Noé Hoyos Department: Room: Gender: Female Retoucher: : 1995 Requested By: Charline Floyd Order Number: [id number] Nataly MD: Garry Kendrick M.D. Measurements Intervals [place] Rate: 115 P: 57 NV: 137 QRS: 73 QRSD: 70 T: 47 QT: 308 QTc: 426 Interpretive Statements SINUS TACHYCARDIA Compared to ECG 10/28/2020 19:16:10 No significant changes Electronically Signed On 01-12-2021 18:04:28 CDT by Garry Kendrick M.D. [id number] f
[2021-01-12] MEDS: diphenhydrAMINE 50 mg/mL SDV 1mL 25 MG IVP (00:56)
[2021-01-12] MEDS: sodium chloride 0.9% 500 ML 999 ML IV (01:05)
[2021-01-12 01:06] VITALS: BP 123/85; PULSE 124; RESP 18; O2SAT 100
[2021-01-12 01:24] LABS: Basophils % 0.2 %; Eosinophils # 0.1 10^3/uL (0.0-0.8); Eosinophils % 0.9 %; Hematocrit 35.8 % (37.0-47.0); Hemoglobin 11.5 g/dL (11.5-15.3); Lymphocytes # 2.6 10^3/uL (0.8-4.8); Lymphocytes % 31.2 %; Mean Corpuscular HGB Conc 32.1 g/dL (30.0-36.0); Mean Corpuscular Hemoglobin 28.2 pg (28.0-34.0); Mean Corpuscular Volume 87.7 fL (81-99); Mean Platelet Volume 9.4 fL (7.4-10.4); Monocytes # 0.8 10^3/uL (0.2-0.9); Monocytes % 9.8 %; Neutrophils # 4.84 10^3/uL (1.8-7.7); Neutrophils % 57.5 %; Nucleated Red Blood Cells % 0 %; Platelet Count 294 10^3/cmm (130-400); Red Blood Count 4.08 10^6/uL (4.1-5.3); Red Cell Distribution Width 14.1 % (12.1-15.1); White Blood Count 8.4 10^3/uL (4.0-10.0)
[2021-01-12 01:30] LABS: HCG, Serum Qual Negative (Negative)
--- NOTE | 2021-01-12 01:32 | ED_ITS ---
HPI - General Adult General: Chief complaint: General Medical Stated complaint: heart hurts, feeling unwell Time Seen by Provider: 01/12/21 00:24 Source: patient Mode of arrival: ambulatory Limitations: no limitations History of Present Illness: HPI narrative: 25-year-old female patient presents to the emergency department with multiple complaints, reports ear pain x2 weeks, vaginal pain/discharge, urinary urgency or frequency. She denies fever chills. She reports overall not feeling well. She reports her heart hurts at times. She reports recent methamphetamine use approximately 2 days ago She reports use of methadone, not prescribed. She denies fever chills nausea vomiting or diarrhea. She reports possible STD exposure with a new partner. Onset (ago): week(s) (1-2) Radiation: non-radiation Severity: moderate Quality: aching and dull Pain Consistency: constant Relieving factors: none Exacerbating factors: none Associated symptoms: Reports malaise and nausea; Deny chest pain, diaphoresis, dyspnea, headache(s), rash, palpitations or vomiting Treatments prior to arrival: none Review of Systems General: Reports: 10 or more systems reviewed and unremarkable except in HPI and below Const: Reports: body aches, fatigue and malaise; Denies: fever(s), chills or diaphoresis Eyes: Denies: change in vision, blurry vision, eye discomfort or eye redness ENMT: Denies: throat pain, dental pain, disequilibrium, nasal discharge, nasal congestion, nasal obstruction or epistaxis Card: Denies: chest pain, palpitations or irregular heart rhythm Resp: Denies: dyspnea, productive cough, non-productive cough or wheezing GI: Reports: nausea; Denies: abdominal pain, vomiting, diarrhea, constipation or GI cramping : Reports: dysuria, urinary frequency, urinary urgency, urinary hesitancy and dribbling; Denies: flank pain, difficulty voiding, hematuria, vaginal dryness, vaginal bleeding or vaginal discharge Musc: Denies: neck pain, back pain or joint pain Skin/Breast: Denies: rash or pruritus Neuro: Denies: headache(s), weakness in extremities or behavioral changes Bradly/Lymph: Denies: easy bruising PFSH ED PFSH: Medical History (Updated 01/12/21 @ 02:43 by YAMILKA Roberts) Abdominal pain Fever Trichomonal infection Social History Smoking and tobacco status: current every day smoker Female Reproductive History: Date of last menstrual period: 10/21/20 Physical Exam Const: COMMON NORMALS: no acute distress, patient oriented x3, healthy appearing, alert and well nourished EXAM LIMITATIONS: no altered mental status and no physical limitations GENERAL APPEARANCE: cooperative, well kempt, well developed, anxious and well hydrated NUTRITIONAL APPEARANCE: thin ORIENTATION/CONSCIOUSNESS: Yes awake, Yes oriented to person, Yes oriented to place and Yes oriented to time HENMT: COMMON NORMALS: normocephalic, atraumatic, EAC's normal, TM's normal bilaterally, Normal external nose present and moist oral mucous membranes HEAD & SCALP: normal to inspection, normocephalic and atraumatic FACE & SINUS: normal facial exam, sinuses nontender and face symmetric NOSE: Normal external nose present, Normal nares present and No nasal polyps present EXTERNAL AUDITORY CANAL: EAC's normal TYMPANIC MEMBRANE: TM's normal bilaterally MOUTH: Normal oral and palatal mucosa present, lip normal and tongue normal THROAT: posterior oropharynx normal, tonsils normal and uvula midline Eye: COMMON NORMALS: Equal, round and reactive pupils present and EOMs intact bilaterally GENERAL EYE: appearance normal, both eyes and all related structures PUPIL: Yes Equal, round and reactive pupils present Neck/C-Spine: COMMON NORMALS: full ROM and no lymphadenopathy GENERAL: Yes normal visual inspection and Yes trachea midline CERVICAL SPINE: Yes cervical ROM normal Lymph: LYMPHATIC: no lymphadenopathy noted Chest: COMMONS NORMALS: normal inspection of the chest and normal palpation of entire chest wall Resp: COMMON NORMALS: normal respiratory effort, No retractions, No use of accessory muscles and clear to auscultation bilaterally EFFORT & INSPECTION: Yes able to speak in complete sentences AUSCULTATION: clear to auscultation bilaterally Cardio: COMMON NORMALS: regular rate, regular rhythm, S1 normal heart sound present, S2 normal heart sound present and Peripheral pulses 2+ throughout RATE: regular rate RHYTHM: regular rhythm HEART SOUNDS: S1 normal heart sound present and S2 normal heart sound present PERIPHERAL PULSES: Peripheral pulses 2+ throughout GI: COMMON NORMALS: Normal to inspection, nondistended, normoactive bowel sounds present, Soft to palpation and non-tender INSPECTION: Yes normal to inspection, No abdominal wall ecchymosis, No central obesity and No visible herniation AUSCULTATION: Yes normoactive bowel sounds PALPATION: Yes Soft to palpation, No Rigid due to palpation and No Hernia present : COMMON NORMALS: Yes no CVA tenderness, Yes normal external appearance and Yes normal appearance of the vagina BLADDER/KIDNEY EXAM: Yes no CVA tenderness EXTERNAL FEMALE EXAM: No Hernia present SPECULUM EXAM - VAGINA: Yes Vaginal discharge present Vaginal discharge present: white and malodorous SPECULUM EXAM - CERVIX: No Cervical bleeding, Yes Abnormal cervical discharge present white and malodorous and No Cervical lesion present UTERUS PALPATION: Yes Uterus tender Back/Pelvis: COMMON NORMALS: no CVA tenderness and thoracic and lumbar spine normal to inspection Extremity: COMMON NORMALS: normal to inspection, full ROM, capillary refill normal and no pedal edema GENERAL: Yes normal exam except as noted Neuro: COMMON NORMALS: patient oriented x3 and no focal motor deficits SENSORIUM/ORIENTATION: Yes alert, Yes oriented to person, Yes oriented to place and Yes oriented to time Psych: COMMON NORMALS: mental status grossly normal, Normal thought process present, cooperative, speech normal, activity/motor behavior normal, denies hallucinations, denies homicidal ideation and denies suicidal ideation APPEARANCE: Yes well kempt ATTITUDE: Yes engaged ACTIVITY/MOTOR BEHAVIOR: Yes appropriate eye contact, Yes fidgeting, Yes hyperactivity, Yes disorganized behavior and Yes restless SPEECH: Yes normal speech MOOD & AFFECT: Yes anxious and Yes tearful THOUGHT PROCESS: Normal thought process present THOUGHT CONTENT: Yes Normal thought content present ATTENTION/CONCENTRATION: Yes attention grossly intact MEMORY/COGNITION: Yes memory grossly intact INSIGHT: Good insight present (Psych) JUDGEMENT: Good judgement present (Psych) Skin: COMMON NORMALS: no rashes or lesions noted, no wounds, turgor normal, no petechiae and no mottling GENERAL SKIN EXAM: no rashes or lesions noted, elasticity normal and turgor normal HAIR: normal NAILS: normal Course Vital Signs: Vital signs: Vital Signs Temperature 98.2 F 01/12/21 00:03 Pulse Rate 102 H 01/12/21 03:09 Respiratory Rate 16 01/12/21 03:09 Blood Pressure 123/85 01/12/21 01:06 Pulse Oximetry 99 01/12/21 03:09 MDM - General Adult MDM Narrative: Medical decision making narrative: 25-year-old female patient presents to the emergency department with multiple complaints. Otitis media was not identified upon exam as she complained of ear pain. Patient did complain of urinary symptoms with vaginal complaints. Questionable STD exposure, urinalysis did reveal urinary tract infection, she was treated for STI here in the ED with a azithromycin and Rocephin. She was placed on Bactrim as home therapy for UTI. Serology findings unremarkable. She received Benadryl Zofran and IV fluids here in the ED. She reports was feeling better after administration of Toradol. She is advised to take ibuprofen and Tylenol as needed for pain. I discussed at length methamphetamine abuse, rehabilitation suggested along with information of services. Advised to abstain from sexual activity until her partner has been treated. Lab Data: Labs: Lab Results 01/12/21 01/12/21 01/12/21 Range/Units 01:01 01:01 01:01 WBC 8.4 (4.0-10.0) 10^3/ uL RBC 4.08 L (4.1-5.3) 10^6/u L Hgb 11.5 (11.5-15.3) g/dL Hct 35.8 L (37.0-47.0) % MCV 87.7 (81-99) fL MCH 28.2 (28.0-34.0) pg MCHC 32.1 (30.0-36.0) g/dL RDW 14.1 (12.1-15.1) % Plt Count 294 (130-400) 10^3/c mm MPV 9.4 (7.4-10.4) fL Neut % (Auto) 57.5 % Lymph % (Auto) 31.2 % [place] % (Auto) 9.8 % Eos % (Auto) 0.9 % Baso % (Auto) 0.2 % Neut # (Auto) 4.84 (1.8-7.7) 10^3/u L Lymph # (Auto) 2.6 (0.8-4.8) 10^3/u L [place] # (Auto) 0.8 (0.2-0.9) 10^3/u L Eos # (Auto) 0.1 (0.0-0.8) 10^3/u L Baso # (Auto) 0.0 (0.0-0.1) 10^3/u L Nucleated RBC % (a uto) 0 % Nucleated RBCs # 0.0 /100WBC Sodium 141 (136-145) mmol/L Potassium 3.6 (3.5-5.1) mmol/L Chloride 103 (98-107) mmol/L Carbon Dioxide 29 (22-29) mmol/L Anion Gap 12.6 (5-19) BUN 15 (6-20) mg/dL Creatinine 0.7 (0.5-0.9) mg/dL GFR Calculation 100.4 (90-130) mL/min Glucose 93 (65-115) mg/dL Calculated Osmolal ity 293 (285-295) mOsm/k g Calcium 9.1 (8.5-10.5) mg/dL Total Bilirubin 0.2 (0.15-1.2) mg/dL AST 12 (0-32) U/L ALT 12 (0-33) U/L Alkaline Phosphata se 54 (35-105) IU/L Total Protein 6.9 (6.6-8.7) g/dL Albumin 4.3 (3.5-5.2) g/dL Globulin 2.6 (1.3-4.6) g/dL Lipase (13-60) U/L HCG, Qual Negative (Negative) Urine Color (Yellow) Urine Appearance (CLEAR) Urine pH (5-7) Ur Specific Gravit y (1.005-1.030) Urine Protein (Negative) Urine Glucose (UA) (Normal) Urine Ketones (Negative) Urine Blood (Negative) Urine Nitrate (Negative) Urine Bilirubin (Negative) Urine Urobilinogen (Negative) mg/dL Ur Leukocyte Autumn ase (Negative) Urine RBC (0-2) /hpf Urine WBC (0-5) /hpf Ur Squamous Epith Cells (0-5) /hpf Amorphous Sediment Urine Bacteria (NONE) /hpf Hyaline Casts /lpf 01/12/21 01/12/21 Range/Units 01:01 01:32 WBC (4.0-10.0) 10^3/ uL RBC (4.1-5.3) 10^6/u L Hgb (11.5-15.3) g/dL Hct (37.0-47.0) % MCV (81-99) fL MCH (28.0-34.0) pg MCHC (30.0-36.0) g/dL RDW (12.1-15.1) % Plt Count (130-400) 10^3/c mm MPV (7.4-10.4) fL Neut % (Auto) % Lymph % (Auto) % [place] % (Auto) % Eos % (Auto) % Baso % (Auto) % Neut # (Auto) (1.8-7.7) 10^3/u L Lymph # (Auto) (0.8-4.8) 10^3/u L [place] # (Auto) (0.2-0.9) 10^3/u L Eos # (Auto) (0.0-0.8) 10^3/u L Baso # (Auto) (0.0-0.1) 10^3/u L Nucleated RBC % (a uto) % Nucleated RBCs # /100WBC Sodium (136-145) mmol/L Potassium (3.5-5.1) mmol/L Chloride (98-107) mmol/L Carbon Dioxide (22-29) mmol/L Anion Gap (5-19) BUN (6-20) mg/dL Creatinine (0.5-0.9) mg/dL GFR Calculation (90-130) mL/min Glucose (65-115) mg/dL Calculated Osmolal ity (285-295) mOsm/k g Calcium (8.5-10.5) mg/dL Total Bilirubin (0.15-1.2) mg/dL AST (0-32) U/L ALT (0-33) U/L Alkaline Phosphata se (35-105) IU/L Total Protein (6.6-8.7) g/dL Albumin (3.5-5.2) g/dL Globulin (1.3-4.6) g/dL Lipase 8 L (13-60) U/L HCG, Qual (Negative) Urine Color Yellow (Yellow) Urine Appearance Sl cloudy A (CLEAR) Urine pH 5 (5-7) Ur Specific Gravit y 1.030 (1.005-1.030) Urine Protein Trace (Negative) Urine Glucose (UA) Norm (Normal) Urine Ketones Negative (Negative) Urine Blood 3+ H (Negative) Urine Nitrate Positive H (Negative) Urine Bilirubin 1+ H (Negative) Urine Urobilinogen 1 H (Negative) mg/dL Ur Leukocyte Autumn ase 1+ H (Negative) Urine RBC 25-40 H (0-2) /hpf Urine WBC 15-25 H (0-5) /hpf Ur Squamous Epith Cells >100 H (0-5) /hpf Amorphous Sediment Not Reportable Urine Bacteria 2+ H (NONE) /hpf Hyaline Casts 0-4 H /lpf EKG Data^: EKG 1: EKG interpretation date: 01/12/21 EKG interpretation time: 01:05 Other EKG comments: Sinus tachycardia, ventricular rate 115, abnormal ECG due to tachycardia, no ST elevation or depression Discharge Plan Discharge Patient Disposition: Home Clinical Impression: Possible exposure to STD, Methamphetamine abuse UTI (urinary tract infection) Qualifiers: Urinary tract infection type: acute cystitis Hematuria presence: without hematuria Qualified Code(s): N30.00 - Acute cystitis without hematuria Condition: Stable Prescriptions: New Zofran 4 mg tablet 4 mg PO Q4H 5 Days Qty: 14 RF: 0 Bactrim DS 800-160 mg tablet 1 tab PO BID 7 Days Qty: 14 RF: 0 No Action ibuprofen 200 mg Tablet 200 mg PO Q6H PRN (Reason: Pain) RF: 0 hydrocodone-acetaminophen 5-325 mg tablet 1 tab PO Q4H PRN (Reason: pain) Qty: 15 RF: 0 Zofran 4 mg tablet 4 mg PO Q6H PRN (Reason: nausea and vomiting) Qty: 14 RF: 0 Discharge Orders: Discharge ED (Routine); Ordered 01/12/21 Ordered By: Charline Medrano Discharge Diet: Usual diet Discharge Activity: Limit activity as instructed Patient Instructions: Sexually Transmitted Diseases (ED), Urinary Tract Infection in Women (ED), Methamphetamine Abuse (ED), Dysuria (ED), Opioid Safety Activity Restrictions/Additional Instructions: Take Bactrim until all gone, even if feeling better Push fluids to avoid dehydration You are encouraged to seek rehabilitation for methamphetamine use Avoid sexual contact until your partner has been treated and is cleared Return to the emergency department if you develop fever chills, vomiting despite use of Zofran or other concerning symptoms Coding Level of Care Code ED Building Appraiser for Brian Fwd Exam Comprehensive
[2021-01-12] MEDS: ondansetron 2 mg/ML SDV 2 mL 4 MG IVP (01:34)
[2021-01-12 01:36] LABS: Add Urine Microscopic? YES; Bilirubin Urine 1+ (Negative); Blood Urine 3+ (Negative); Glucose Urine UA Norm (Normal); Ketones Urine Negative (Negative); Leukocyte Esterase Urine 1+ (Negative); Nitrate Urine Positive (Negative); Protein Urine Trace (Negative); Urine Color Yellow (Yellow); Urobilinogen Urine 1 mg/dL (Negative); pH Urine 5 (5-7)
[2021-01-12 01:40] LABS: Alanine Aminotransferase 12 U/L (0-33); Albumin Level 4.3 g/dL (3.5-5.2); Alkaline Phosphatase 54 IU/L (35-105); Anion Gap 12.6 (5-19); Aspartate Amino Transferase 12 U/L (0-32); Blood Urea Nitrogen 15 mg/dL (6-20); Calcium 9.1 mg/dL (8.5-10.5); Carbon Dioxide 29 mmol/L (22-29); Chloride 103 mmol/L (98-107); Globulin 2.6 g/dL (1.3-4.6); Glomerular Filtration Rate 100.4 mL/min (90-130); Glucose 93 mg/dL (65-115); Osmolality Calculated 293 mOsm/kg (285-295); Potassium 3.6 mmol/L (3.5-5.1); Sodium 141 mmol/L (136-145); Total Bilirubin 0.2 mg/dL (0.15-1.2); Total Protein 6.9 g/dL (6.6-8.7)
[2021-01-12 01:45] LABS: Lipase 8 U/L (13-60)
[2021-01-12 01:47] VITALS: RESP 19
[2021-01-12 01:47] LABS: Add Urine Culture? No; Bacteria Urine 2+ /hpf; Hyaline Casts Urine 0-4 /lpf; RBC Urine 25-40 /hpf (0-2); Squamous Epithelial Cell Urine >100 /hpf (0-5); WBC Urine 15-25 /hpf (0-5)
[2021-01-12] MEDS: cefTRIAXone 1,000 MG in sodium chloride 0.9% (plus) 50 ML 100 MG IV (01:58)
[2021-01-12] MEDS: ketorolac 30 mg/mL INJ 15 MG IVP (01:58)
[2021-01-12] MEDS: azithromycin 250 mg Tablet 1000 MG PO (01:58)
[2021-01-12 02:09] VITALS: RESP 18
[2021-01-12 03:09] VITALS: BP 115/80; PULSE 102; PULSE 106; RESP 16; O2SAT 100; O2SAT 99
== END 2021-01-12 03:15 | disposition home or self-care (01) ==
PROVIDERS: Emergency Provider Nurse Practitioner Family
DX: N30.00 Acute cystitis without hematuria (principal); F15.10 Other stimulant abuse, uncomplicated; Z20.2 Contact with and (suspected) exposure to infections with a predominantly sexual mode of transmission; F17.210 Nicotine dependence, cigarettes, uncomplicated
CPT/HCPCS: 80053; 81001; 83690; 84703; 85025; 87070; 87205; 87210; 87491; 87591; 87661; 93005; 96365; 96375; 99284; E0352; J0696; J1200; J1885; J2405; J7040; Q0144

== ENCOUNTER 2021-02-03 02:01 | Emergency (ER) | payer SELFPAY ==
[2021-02-03 02:07] VITALS: BP 129/66; PULSE 108; RESP 18; TEMP 36.8; O2SAT 97; BMI 21.9
--- NOTE | 2021-02-03 02:57 | W.ED.EXTPRO ---
HPI - Extremity Problem General: Chief complaint: Extremity Problem,Nontraumatic Stated complaint: poss insect bite Time Seen by Provider: 02/03/21 02:05 Source: patient Mode of arrival: ambulatory Limitations: no limitations History of Present Illness: HPI Narrative: 25-year-old female states she had an insect bite to her hand is been going on for 1 week with increased erythema and itching. She states that the redness is worsened slightly. She denies any pain and denies any fever. Denies any worsening improving factors. Associated symptoms: Deny chest pain or fever(s) Review of Systems Const: Denies: fever(s), chills, body aches or change in appetite Eyes: Denies: blurry vision or eye discomfort ENMT: Denies: throat pain or dental pain Card: Denies: chest pain Resp: Denies: dyspnea GI: Denies: abdominal pain, nausea, vomiting or diarrhea : Denies: dysuria Musc: Denies: neck pain or back pain Skin/Breast: Reports: erythema Neuro: Denies: headache(s) Psych: Denies: depression Bradly/Lymph: Denies: easy bruising All/Imm: Denies: urticaria PFS ED PFSH: Medical History (Updated 02/03/21 @ 02:57 by Emily Goldman MD) Abdominal pain Fever Trichomonal infection Social History Smoking and tobacco status: current every day smoker Female Reproductive History: Date of last menstrual period: 01/27/21 Physical Exam Const: COMMON NORMALS: no acute distress, patient oriented x3 and healthy appearing HENMT: COMMON NORMALS: normocephalic and atraumatic HEAD & SCALP: normocephalic and atraumatic Eye: COMMON NORMALS: Equal, round and reactive pupils present and EOMs intact bilaterally PUPIL: Yes Equal, round and reactive pupils present Neck/C-Spine: COMMON NORMALS: full ROM and supple Chest: COMMONS NORMALS: normal inspection of the chest and normal palpation of entire chest wall Resp: COMMON NORMALS: normal respiratory effort, No retractions, No use of accessory muscles and clear to auscultation bilaterally AUSCULTATION: clear to auscultation bilaterally Cardio: COMMON NORMALS: regular rate, regular rhythm and No murmurs present (Cardio) RATE: regular rate RHYTHM: regular rhythm GI: COMMON NORMALS: Normal to inspection, nondistended, normoactive bowel sounds present, Soft to palpation, non-tender and no masses PALPATION: Yes Soft to palpation Extremity: COMMON NORMALS: normal to inspection and full ROM Neuro: COMMON NORMALS: patient oriented x3, moves all extremities and no focal motor deficits Psych: COMMON NORMALS: mental status grossly normal, Normal thought process present and cooperative THOUGHT PROCESS: Normal thought process present Skin: NARRATIVE SKIN EXAM: Insect bite to left hand with slight erythema Course Vital Signs: Vital signs: Vital Signs Temperature 98.2 F 02/03/21 02:07 Pulse Rate 108 H 02/03/21 02:07 Respiratory Rate 18 02/03/21 02:07 Blood Pressure 129/66 02/03/21 02:07 Pulse Oximetry 97 02/03/21 02:07 MDM - Extremity (Nontraumatic) MDM Narrative: Medical decision making narrative: Patient presents with an insect bite to the left hand with slight cellulitis. Will place on Keflex. Patient is to return if worsening. Discharge Plan Discharge Patient Disposition: Home Clinical Impression: Insect bite Qualifiers: Encounter type: initial encounter Site of insect bite: hand Laterality: left Qualified Code(s): S60.562A - Insect bite (nonvenomous) of left hand, initial encounter Condition: Stable Prescriptions: New cephalexin 500 mg capsule 500 mg PO TID 7 Days Qty: 21 RF: 0 No Action ibuprofen 200 mg Tablet 200 mg PO Q6H PRN (Reason: Pain) RF: 0 hydrocodone-acetaminophen 5-325 mg tablet 1 tab PO Q4H PRN (Reason: pain) Qty: 15 RF: 0 Zofran 4 mg tablet 4 mg PO Q6H PRN (Reason: nausea and vomiting) Qty: 14 RF: 0 Discharge Orders: Discharge ED (Routine); Ordered 02/03/21 Ordered By: Emily Goldman Discharge Diet: Advance as tolerated Discharge Activity: Resume usual activity Patient Instructions: Insect Bite or Sting (ED) Coding Level of Care Code ED Dumping Machine Operator for Brian Harvey
[2021-02-03 03:00] VITALS: PULSE 78
[2021-02-03 03:03] VITALS: RESP 16; O2SAT 98
== END 2021-02-03 03:04 | disposition home or self-care (01) ==
PROVIDERS: Emergency Provider Emergency Medicine
DX: S60.562A Insect bite (nonvenomous) of left hand, initial encounter (principal); W57.XXXA Bitten or stung by nonvenomous insect and other nonvenomous arthropods, initial encounter; F17.210 Nicotine dependence, cigarettes, uncomplicated
CPT/HCPCS: 99282

== ENCOUNTER 2021-12-05 12:59 | Inpatient (IN) | payer SELFPAY ==
[2021-12-05 13:09] VITALS: BP 115/79; PULSE 89; RESP 13; O2SAT 100; BMI 23.2
--- NOTE | 2021-12-05 13:19 | W.ED.GENADLT ---
HPI - General Adult General: Chief complaint: Vaginal Bleeding Stated complaint: ABDOMINAL PAIN/ CRAMPING/ BLEEDING Time Seen by Provider: 12/05/21 13:00 History of Present Illness: Patient is a 26-year-old female G4, P3 at 2 months and 15 days presenting to emergency room with complaints lower abdominal pain, pelvic cramping and heavy vaginal bleeding x1 day. Patient tells me that symptoms all started earlier this morning. Patient found out to a month and a half ago that she was with a child at [facility]. Patient denies any complication with prior. Patient also reported new onset of whitish discharge x1 day. Patient has no urinary symptoms, denies any significant nausea or vomiting, flank pain, chest pain, shortness breath, palpitation, fever or chills, lightheadedness or other focal complaints. It is, patient tells me that she is feeling depressed and has attempted to commit suicide by by hanging. Patient tells me that she is thinking about hanging when she goes home. Onset:earlier today Duration:ongoing Location:home Severity:moderate Associated symptoms: Deny chest pain, dyspnea, nausea, rash, palpitations or vomiting Review of Systems Const: Denies: fever(s) or chills Eyes: Denies: change in vision ENMT: Denies: mouth pain Card: Denies: chest pain or palpitations Resp: Denies: dyspnea or non-productive cough GI: Reports: abdominal pain (+lower abd pain); Denies: nausea, vomiting or diarrhea : Reports: pelvic pain and other (+vaginal bleeding and vaginal discharge); Denies: dysuria Musc: Denies: extremity pain Skin/Breast: Denies: rash or new lesions Neuro: Denies: weakness in extremities Psych: Reports: depression and suicidal ideation Bradly/Lymph: Denies: easy bruising PFSH ED PFSH: Medical History Abdominal pain Carbuncle of buttock Fever Suicidal behavior with attempted self-injury Trichomonal infection Social History Smoking and tobacco status: former smoker Alcohol intake: former Substance/Drug Use: former Date of last use: methadone Physical Exam Const: COMMON NORMALS: alert HENMT: COMMON NORMALS: atraumatic HEAD & SCALP: atraumatic MOUTH: moist mucous membranes not abnormal Eye: COMMON NORMALS: EOMs intact bilaterally and conjunctivae normal CONJUNCTIVA: Yes conjunctivae normal Neck/C-Spine: COMMON NORMALS: full ROM and supple Resp: COMMON NORMALS: normal respiratory effort and clear to auscultation bilaterally AUSCULTATION: clear to auscultation bilaterally Cardio: COMMON NORMALS: regular rate RATE: regular rate GI: COMMON NORMALS: Soft to palpation and non-tender PALPATION: Yes Soft to palpation : OTHER: Exam supervised by Soniya Hernández. External genitalia wnl. No erythema around cervical os, os not open. no discharge, + pool of blood in the vaginal vault without any active extravasation. Extremity: COMMON NORMALS: full ROM Neuro: SENSORIUM/ORIENTATION: Yes alert MOTOR EXAM: No Abnormal motor strength present and Other motor observations present (no focal motor deficits) Psych: COMMON NORMALS: speech normal SPEECH: Yes normal speech MOOD & AFFECT: Yes euthymic mood Course Vital Signs: Vital signs: Vital Signs Pulse Rate 89 12/05/21 13:09 Respiratory Rate 13 12/05/21 13:09 Blood Pressure 115/79 12/05/21 13:09 Pulse Oximetry 100 12/05/21 13:09 MDM - General Adult Medical Decision Making 26-year-old female G4, P3 presents emergency room with concerns of vaginal bleeding, pelvic cramps, lower abdominal pain and new onset of vaginal discharge x1 day. Patient is currently 2-month and 15 days by LMP. Exam showed mild pool of blood in the vaginal canal without any signs of active extrasation. Workup: CBC, BMP, BHCG, ABORH, OB US Intervention: Tylenol and reassessment On reassessment, appears to be stable. Patient is Rh+. She is not currently based on beta hCG. Transvaginal ultrasound negative for any acute findings. Patient continues to have suicidal ideation given history of plan, patient admitted to the hospital. Patient is noted to have Trichomonas on the urine. Will treat empirically will treat for trichomonas with metronidazole BID. Disposition: admission to psych unit Lab Data : 12/05/21 15:27 12/05/21 15:27 Radiology Impressions Obstetrics Ultrasound 12/05/21 13:45 IMPRESSION: 1. No intrauterine gestation identified by ultrasound. 2. No free fluid in the cul-de-sac. 3. Large LEFT ovarian cyst with daughter cysts. 4. If there is a positive beta hCG ectopic is not excluded. Laboratory Results WBC 6.6 10^3/uL (4.0-10.0) 12/05/21 RBC 4.70 10^6/uL (4.1-5.3) 12/05/21 Hgb 12.8 g/dL (11.5-15.3) 12/05/21 Hct 40.8 % (37.0-47.0) 12/05/21 MCV 86.8 fl (81-99) 12/05/21 MCH 27.2 pg (28.0-34.0) L 12/05/21 MCHC 31.4 g/dL (30.0-36.0) 12/05/21 RDW 13.1 % (12.1-15.1) 12/05/21 Plt Count 371 10^3/cmm (130-400) 12/05/21 MPV 9.3 fL (7.4-10.4) 12/05/21 Neut % (Auto) 65.0 % 12/05/21 Lymph % (Auto) 27.1 % 12/05/21 Garvin % (Auto) 6.2 % 12/05/21 Eos % (Auto) 0.9 % 12/05/21 Baso % (Auto) 0.5 % 12/05/21 Neut # (Auto) 4.27 10^3/uL (1.8-7.7) 12/05/21 Lymph # (Auto) 1.8 10^3/uL (0.8-4.8) 12/05/21 Garvin # (Auto) 0.4 10^3/uL (0.2-0.9) 12/05/21 Eos # (Auto) 0.1 10^3/uL (0.0-0.8) 12/05/21 Baso # (Auto) 0.0 10^3/uL (0.0-0.1) 12/05/21 Nucleated RBC % (auto) 0 % 12/05/21 Nucleated RBCs # 0.0 /100WBC 12/05/21 PT 13.20 SECONDS (12.1-14.9) 12/05/21 INR 0.97 (0.8-1.2) 12/05/21 APTT 35.0 SECONDS (23.9-36.7) 12/05/21 Sodium 136 mmol/L (136-145) 12/05/21 Potassium 4.2 mmol/L (3.5-5.1) 12/05/21 Chloride 101 mmol/L (98-107) 12/05/21 Carbon Dioxide 25 mmol/L (22-29) 12/05/21 Anion Gap 14.2 (5-19) 12/05/21 BUN 16 mg/dL (6-20) 12/05/21 Creatinine 0.5 mg/dL (0.5-0.9) 12/05/21 GFR Calculation 146.9 mL/min (90-130) H 12/05/21 Glucose 121 mg/dL (65-115) H 12/05/21 Calculated Osmolality 284 mOsm/kg (285-295) L 12/05/21 Calcium 9.2 mg/dL (8.5-10.5) 12/05/21 Total Bilirubin 0.2 mg/dL (0.15-1.2) 12/05/21 AST 13 U/L (0-32) 12/05/21 ALT 18 U/L (0-33) 12/05/21 Alkaline Phosphatase 78 IU/L (35-105) 12/05/21 Total Protein 7.2 g/dL (6.6-8.7) 12/05/21 Albumin 4.4 g/dL (3.5-5.2) 12/05/21 Globulin 2.8 g/dL (1.3-4.6) 12/05/21 Lipase 19 U/L (13-60) 12/05/21 Ser , Semi-Qnt 0.50 mIU/mL 02/18/22 15:27 Urine Color Yellow (Yellow) 12/05/21 14:52 Urine Appearance Sl hazy (CLEAR) 12/05/21 14:52 Urine pH 7 (5-7) 12/05/21 14:52 Ur Specific [place] 1.010 (1.005-1.030) 12/05/21 14:52 Urine Protein Neg (Negative) 12/05/21 14:52 Urine Glucose (UA) Norm (Normal) 12/05/21 14:52 Urine Ketones 1+ (Negative) H 12/05/21 14:52 Urine Blood 3+ (Negative) H 12/05/21 14:52 Urine Nitrate Negative (Negative) 12/05/21 14:52 Urine Bilirubin Neg (Negative) 12/05/21 14:52 Urine Urobilinogen Norm mg/dL (Negative) 12/05/21 14:52 Ur Leukocyte Esterase Trace (Negative) H 12/05/21 14:52 Urine RBC 40-50 /hpf (0-2) H 12/05/21 14:52 Urine WBC 0-4 /hpf (0-5) H 12/05/21 14:52 Ur Squamous Epith Cells 0-4 /hpf (0-5) H 12/05/21 14:52 Amorphous Sediment Not Reportable 12/05/21 14:52 Urine Bacteria 1+ /hpf (NONE) H 12/05/21 14:52 Urine Mucus 2+ /hpf 12/05/21 14:52 Urine Trichomonas 1+ /hpf H 12/05/21 14:52 Urine Opiates Screen Negative ng/mL (Negative) 12/05/21 14:52 Ur Barbiturates Screen Negative ng/mL (Negative) 12/05/21 14:52 Ur Phencyclidine Scrn Negative ng/mL (Negative) 12/05/21 14:52 Ur Amphetamines Screen Positive ng/mL (Negative) H 12/05/21 14:52 U Benzodiazepines Scrn Negative ng/mL (Negative) 12/05/21 14:52 Urine Cocaine Screen Negative ng/mL (Negative) 12/05/21 14:52 U Marijuana (THC) Screen Negative ng/mL (Negative) 12/05/21 14:52 Blood Type A Positive 12/05/21 15:27 Rho(D) Type Positive 12/05/21 15:27 Imaging Data Other Imaging: Radiologist's impression: [facility] [address] [place] [address] Ultrasound Report Signed Patient: Noé Hoyos Unit #: [id number] : 1995 Age/Sex: 26 / F ADM Date: 12/05/21 Loc: ER Room/Bed: Attending Dr: Ordering Provider/Ordering MD: Audie Diane MD Date of Service: 12/05/21 Procedure(s): US OB <=14 wk fetus w transvag Accession Number(s): [id number] Report Number: [id number] WS: [id number] ?EARLY OBSTETRICAL ULTRASOUND (<14 WEEKS). HISTORY: Possible . COMPARISON: None. On transvaginal imaging the uterus is retroverted. No intrauterine gestational sac. The endometrium is normal size at 8 mm. Cervix is closed. No fibroid or mass. LEFT ovary measures 4.9 x 2.5 x 2.6 cm. There is a large cyst with daughter cyst associated with the ovary. This cyst measures 2.8 x 1.9 x 3.5 cm.RIGHT ovary measures 2.0 x 1.4 x 2.5 cm. Small follicles. No additional mass. No free fluid. US/US OB <=14 wk fetus w transvag IMPRESSION: ? 1.? No intrauterine gestation identified by ultrasound. 2.? No free fluid in the cul-de-sac. 3.? Large LEFT ovarian cyst with daughter cysts. 4.? If there is a positive beta hCG ectopic is not excluded. ? Dictated By: Melina Kwon DO Signed By: Melina Kwon DO Signed Date/Time: 12/05/21 1515 DD/ 1511 Discharge Plan Discharge Patient Disposition: Admitted As Inpatient Clinical Impression: Depression with suicidal ideation, Trichomonal infection Discharge Diet: Advance as tolerated Discharge Activity: Increase activity as tolerated Coding Level of Care Code ED Electronic Equipment Maint Tech for Chg Fwd Exam Comprehensive
--- NOTE | 2021-12-05 13:45 | US_ITS ---
WS: [id number] EARLY OBSTETRICAL ULTRASOUND (<14 WEEKS). HISTORY: Possible . COMPARISON: None. On transvaginal imaging the uterus is retroverted. No intrauterine gestational sac. The endometrium i s normal size at 8 mm. Cervix is closed. No fibroid or mass. LEFT ovary measures 4.9 x 2.5 x 2.6 cm. There is a large cyst with daughter cyst associated with the ovary. This cyst measures 2.8 x 1.9 x 3.5 cm.RIGHT ovary measures 2.0 x 1.4 x 2.5 cm. Small follicles . No additional mass. No free fluid. US/US OB <=14 wk fetus w transvag IMPRESSION: 1. No intrauterine gestation identified by ultrasound. 2. No free fluid in the cul-de-sac. 3. Large LEFT ovarian cyst with daughter cysts. 4. If there is a positive beta hCG ectopic is not excluded.
[2021-12-05] MEDS: acetaminophen 500 mg Tablet PO (14:05)
[2021-12-05 15:11] LABS: Amphetamines Screen Urine Positive (Negative); Barbiturates Screen Urine Negative (Negative); Benzodiazepines Screen Urine Negative (Negative); Cocaine Screen Urine Negative (Negative); Opiate Screen Urine Negative (Negative); PCP Screen Urine Negative (Negative); THC Screen Urine Negative (Negative)
[2021-12-05 15:18] LABS: Add Urine Microscopic? YES; Bilirubin Urine Neg (Negative); Blood Urine 3+ (Negative); Glucose Urine UA Norm (Normal); Ketones Urine 1+ (Negative); Leukocyte Esterase Urine Trace (Negative); Nitrate Urine Negative (Negative); Protein Urine Neg (Negative); Urine Appearance SL Hazy (CLEAR); Urine Color Yellow (Yellow); Urobilinogen Urine Norm (Negative); pH Urine 7 (5-7)
[2021-12-05 15:19] LABS: RBC Urine 40-50 /hpf (0-2); WBC Urine 0-4 /hpf (0-5)
[2021-12-05 15:20] LABS: Bacteria Urine 1+ /hpf; Mucus Urine 2+ /hpf; Squamous Epithelial Cell Urine 0-4 /hpf (0-5)
[2021-12-05 15:21] LABS: Add Urine Culture? Yes; Trichomonas Urine 1+ /hpf
[2021-12-05 15:35] LABS: Basophils % 0.5 %; Eosinophils # 0.1 10^3/uL (0.0-0.8); Eosinophils % 0.9 %; Hematocrit 40.8 % (37.0-47.0); Hemoglobin 12.8 g/dL (11.5-15.3); Lymphocytes # 1.8 10^3/uL (0.8-4.8); Lymphocytes % 27.1 %; Mean Corpuscular HGB Conc 31.4 g/dL (30.0-36.0); Mean Corpuscular Hemoglobin 27.2 pg (28.0-34.0); Mean Corpuscular Volume 86.8 fl (81-99); Mean Platelet Volume 9.3 fL (7.4-10.4); Monocytes # 0.4 10^3/uL (0.2-0.9); Monocytes % 6.2 %; Neutrophils # 4.27 10^3/uL (1.8-7.7); Nucleated Red Blood Cells % 0 %; Platelet Count 371 10^3/cmm (130-400); Red Cell Distribution Width 13.1 % (12.1-15.1); White Blood Count 6.6 10^3/uL (4.0-10.0)
[2021-12-05 15:47] LABS: INR 0.97 (0.8-1.2)
[2021-12-05 16:04] LABS: Alanine Aminotransferase 18 U/L (0-33); Albumin Level 4.4 g/dL (3.5-5.2); Alkaline Phosphatase 78 IU/L (35-105); Anion Gap 14.2 (5-19); Aspartate Amino Transferase 13 U/L (0-32); Blood Urea Nitrogen 16 mg/dL (6-20); Calcium 9.2 mg/dL (8.5-10.5); Carbon Dioxide 25 mmol/L (22-29); Chloride 101 mmol/L (98-107); Globulin 2.8 g/dL (1.3-4.6); Glomerular Filtration Rate 146.9 mL/min (90-130); Glucose 121 mg/dL (65-115); Lipase 19 U/L (13-60); Osmolality Calculated 284 mOsm/kg (285-295); Potassium 4.2 mmol/L (3.5-5.1); Sodium 136 mmol/L (136-145); Total Bilirubin 0.2 mg/dL (0.15-1.2); Total Protein 7.2 g/dL (6.6-8.7)
[2021-12-05 16:26] LABS: Acetaminophen < 5.0 ug/mL (10-30); Salicylate < 0.3 mg/dL (3-10)
[2021-12-05 16:27] LABS: HCG Quantitative < 0.50 mIU/mL
[2021-12-05 16:50] VITALS: BP 118/84; PULSE 92; RESP 14; O2SAT 99
[2021-12-05 17:58] VITALS: BP 128/83
[2021-12-05] MEDS: cloNIDine 0.1 mg Tablet PO (17:58)
[2021-12-05] MEDS: metroNIDAZOLE 500 MG Tablet PO (18:01)
[2021-12-05] MEDS: ondansetron 4 MG Tablet PO (18:02)
[2021-12-05] MEDS: LORazepam 1 mg Tablet PO (18:02)
[2021-12-05 18:36] VITALS: BP 128/83; PULSE 108; RESP 14; O2SAT 100
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
[2021-12-05 20:08] VITALS: BP 126/79; PULSE 89; RESP 16; TEMP 36.7; O2SAT 100
[2021-12-05] MEDS: OLANZapine 5 mg ODT PO (20:48)
[2021-12-05] MEDS: trazodone 50 mg Tablet PO (20:48)
[2021-12-05] MEDS: hyDROXYzine 25 mg Capsule 50 MG PO (21:36)
--- NOTE | 2021-12-06 03:49 | PC.NURSE ---
2047-requested something for sleep and hallucinations-trazodone and zyprexa given po. 2135 requested something for anxiety. 2147 no effective. 2235 resting in bed with eyes closed.
[2021-12-06 06:00] VITALS: BP 127/81; PULSE 78; RESP 16; TEMP 36.8; O2SAT 99
[2021-12-06] MEDS: metroNIDAZOLE 500 MG Tablet PO (09:36)
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
[2021-12-06 12:24] VITALS: BP 127/81; PULSE 78; RESP 16; TEMP 36.8; O2SAT 99
--- NOTE | 2021-12-06 12:36 | PC.NURSE ---
PT REQUESTED TO LEAVE AMA. PT VOLUNTARY AT THIS TIME. DISCUSSED WITH PSYCHIATRIST, DR. RG, AND HE AGREED TO ALLOW THE PT TO LEAVE AMA. DR. RG SPOKE WITH PT AND DISCUSSED RISKS OF LEAVING AMA. PT CONTINUED TO VOICE REQUEST TO LEAVE AMA. PT COMPLETED ALL AMA PAPERWORK AND VERBALIZES UNDERSTANDING. PT IS CALM AND COOPERATIVE WITH NURSING STAFF DURING AMA PROCESS. PT BELONGING SENT WITH HER UPON DISCHARGE. PT DEVEN SI/HI/AVH UPON DISCHARGE.
--- NOTE | 2021-12-08 08:01 | PC.OT ---
OT EVALUATION ORDERS RECEIVED ; PATIENT DISCHARGED BEFORE EVALUATION COULD BE COMPLETED
--- NOTE | 2021-12-08 14:01 | DCPLANNER ---
Addendum entered by Lina Hernández 01/06/22 15:28: auto leasing manager called [facility], spoke with Jacky to confirm that an appointment had been scheduled for patient. auto leasing manager was told that clinic has tried several times to contact patient and has left several messages for patient to call clinic to schedule an appointment. Addendum entered by Lina Hernández 12/30/21 08:37: auto leasing manager faxed referral to [facility]. Original Note: auto leasing manager had message to schedule a follow up appointment for patient with [facility]. auto leasing manager called the [facility], spoke with Jacky, gave clinic patients information. auto leasing manager was told that patients information would be printed and reviewed. Clinic will call patient with appointment information.
== END 2021-12-06 12:36 | disposition left against medical advice (07) | DRG 832 ==
LOC: ER 16:12 → NP 17:56
PROVIDERS: Admitting Provider Psychiatry & Neurology Psychiatry; Emergency Provider Emergency Medicine; Visit Provider Psychiatry & Neurology Psychiatry
DX: O99.341 Other mental disorders complicating pregnancy, first trimester (principal); O99.321 Drug use complicating pregnancy, first trimester; O34.81 Maternal care for other abnormalities of pelvic organs, first trimester; N83.202 Unspecified ovarian cyst, left side; F11.10 Opioid abuse, uncomplicated; F32.A Depression, unspecified; Z87.891 Personal history of nicotine dependence; A59.9 Trichomoniasis, unspecified; O26.891 Other specified pregnancy related conditions, first trimester; Z3A.00 Weeks of gestation of pregnancy not specified; Z76.5 Malingerer [conscious simulation]; Z53.21 Procedure and treatment not carried out due to patient leaving prior to being seen by health care provider
CPT/HCPCS: 76801; 76817; 80053; 80306; 80307; 81001; 83690; 84702; 85025; 85610; 85730; 86900; 87086; 90471; 90686; 99285; Q0162

== ENCOUNTER 2022-04-09 04:22 | Emergency (ER) | payer SELFPAY ==
[2022-04-09 04:26] VITALS: BP 131/81; PULSE 116; RESP 18; TEMP 36.7; O2SAT 97; BMI 22.6
--- NOTE | 2022-04-09 04:31 | ED_ITS ---
HPI - Skin/Abscess/Foreign Bdy General: Chief complaint: Skin/Abscess/Foreign Body Stated complaint: bite on back of neck Time Seen by Provider: 04/09/22 04:29 Source: patient Mode of arrival: ambulatory Limitations: no limitations History of Present Illness: 18-year-old female states she has had an abscess to the back of her neck over the last 2 days. States she has had some slight drainage from it and pain. Patient rates her pain a 3 out of 10 currently. She denies any worsening improving factors denies any abscesses elsewhere. Associated symptoms: Deny chills, fever(s), nausea or vomiting Review of Systems Const: Denies: fever(s), chills, body aches or change in appetite Eyes: Denies: blurry vision or eye discomfort ENMT: Denies: throat pain or dental pain Card: Denies: chest pain Resp: Denies: dyspnea GI: Denies: abdominal pain, nausea, vomiting or diarrhea : Denies: dysuria Musc: Denies: neck pain or back pain Skin/Breast: Denies: rash Neuro: Denies: headache(s) Psych: Denies: depression Bradly/Lymph: Denies: easy bruising All/Imm: Denies: urticaria PFSH ED PFSH: Medical History Abdominal pain Carbuncle of buttock Fever Suicidal behavior with attempted self-injury Trichomonal infection Social History Smoking and tobacco status: former smoker Alcohol intake: former Female Reproductive History: Date of last menstrual period: 12/05/21 Physical Exam Const: COMMON NORMALS: no acute distress, patient oriented x3 and healthy appearing HENMT: COMMON NORMALS: normocephalic and atraumatic HEAD & SCALP: normocephalic and atraumatic Eye: COMMON NORMALS: Equal, round and reactive pupils present and EOMs intact bilaterally PUPIL: Yes Equal, round and reactive pupils present Neck/C-Spine: COMMON NORMALS: full ROM and supple Chest: COMMONS NORMALS: normal inspection of the chest and normal palpation of entire chest wall Resp: COMMON NORMALS: normal respiratory effort, No retractions, No use of accessory muscles and clear to auscultation bilaterally AUSCULTATION: clear to auscultation bilaterally Cardio: COMMON NORMALS: regular rate, regular rhythm and No murmurs present (Cardio) RATE: regular rate RHYTHM: regular rhythm GI: COMMON NORMALS: Normal to inspection, nondistended, normoactive bowel sounds present, Soft to palpation, non-tender and no masses PALPATION: Yes Soft to palpation Extremity: COMMON NORMALS: normal to inspection and full ROM Neuro: COMMON NORMALS: patient oriented x3, moves all extremities and no focal motor deficits Psych: COMMON NORMALS: mental status grossly normal, Normal thought process present and cooperative THOUGHT PROCESS: Normal thought process present Skin: NARRATIVE SKIN EXAM: 2 cm abscess to posterior neck Procedures Abscess I/D Site: other (posterior neck) Local Anesthetic: lidocaine 1% Amount of anesthesia used (mL): 5 Technique: incised with #11 blade Packing used?: none Course Vital Signs: Vital signs: Vital Signs Temperature 98.0 F 04/09/22 04:26 Pulse Rate 118 H 04/09/22 04:41 Respiratory Rate 16 04/09/22 04:41 Blood Pressure 136/94 04/09/22 04:41 Pulse Oximetry 100 04/09/22 04:41 MDM - Skin/Abscess/Foreign Bdy Medicial Decision Making Patient presents for an abscess was incised and drained she is well-appearing here will place on Bactrim she is to follow-up with PCP and return if worsening. Discharge Plan Discharge Patient Disposition: Home Clinical Impression: Abscess Condition: Stable Prescriptions: New Bactrim DS 800-160 mg tablet 1 tab PO BID 10 Days Qty: 20 0RF Naprosyn 500 mg tablet 500 mg PO BID PRN (Reason: pain) Qty: 20 0RF Discharge Orders: Discharge ED (Routine); Ordered 04/09/22 Ordered By: Emily Goldman Discharge Diet: Advance as tolerated Discharge Activity: Resume usual activity Patient Instructions: Abscess (ED) Coding Level of Care Code ED Management And Budget Analyst for Brian Fwd Exam Comprehensive
[2022-04-09] MEDS: HYDROcodone-acetaminophen 5-325 mg Tablet 1 TAB PO (04:34)
[2022-04-09 04:41] VITALS: BP 136/94; PULSE 118; RESP 16; O2SAT 100
[2022-04-09 05:14] VITALS: BP 120/74; PULSE 99; RESP 14; O2SAT 97
== END 2022-04-09 05:24 | disposition home or self-care (01) ==
PROVIDERS: Emergency Provider Emergency Medicine
DX: L02.11 Cutaneous abscess of neck (principal); Z87.891 Personal history of nicotine dependence
CPT/HCPCS: 10060; 99283

== ENCOUNTER 2022-05-08 10:18 | Emergency (ER) | payer SELFPAY ==
[2022-05-08 10:23] VITALS: BP 113/67; PULSE 102; RESP 16; TEMP 36.4; O2SAT 99; BMI 22.6
--- NOTE | 2022-05-08 10:30 | ED_ITS ---
HPI - Animal Bite General: Chief Complaint: Animal Bite Stated Complaint: spider bites Time Seen by Provider: 05/08/22 10:30 Source: patient Mode of arrival: ambulatory Limitations: no limitations History of Present Illness: 26-year-old female presents the ER today for spider bites . Per patient, she walked through a spider web and was bit by spiders in several locations. Patient reports she currently has Prid on these. The 2 most concerning lesions are on her face. Patient reports she has had chills but denies fevers. This happened several days ago. No additional concerns at this time. Review of Systems General: Reports: 10 or more systems reviewed and unremarkable except in HPI and below PFSH ED PFSH: Medical History Abdominal pain Carbuncle of buttock Fever Suicidal behavior with attempted self-injury Trichomonal infection Social History Smoking and tobacco status: former smoker Alcohol intake: former Female Reproductive History: Date of last menstrual period: 12/05/21 Physical Exam Narrative: EXAM NARRATIVE: Patient is clearly under the influence of a medication or drug at this time. Patient had difficulty answering any questions. History she gave does not make much sense. Patient was agitated with any questions asked of her. Const: GENERAL APPEARANCE: disheveled and other (pt not wearing shoes, does not make eye contact) HENMT: OTHER: Patient has a lesion on the left side of forehead and also on the chin that are covered in Prid but appear to be slightly erythematous. Cannot visualize drainage due to Prid. Resp: COMMON NORMALS: normal respiratory effort EFFORT & INSPECTION: Yes a ble to speak in complete sentences Cardio: COMMON NORMALS: regular rhythm RATE: tachycardic (mildly) RHY THM: regular rhythm Extremity: COMMON NORMALS: full ROM Neuro: COMMON NORMALS: moves all extremities and gait normal Psych: COMMON NORMALS: speech normal APPEARANCE: Yes unkempt, Yes disheveled and Yes bizarre ATTITUDE: Yes agitated ACTIVITY/MOTOR BEHAVIOR: Yes fidgeting and Yes Avoids eye contact (attititude/behavior) SPEECH: Yes normal speech MOOD & AFFECT: Yes irritable OTHER: Patient clearly appears to be under the influence of something. Skin: OTHER: See face exam. Patient has 2 wounds on the face that are covered in Prid that she reports are spider bites. There is mild erythema, no drainage noted. Minimal swelling noted. Course ED course: 26-year-old female under the influence likely of a drug appears in the ER today for which she reports her spider bites on her face. He is recovered and Prid however appear to be slightly erythematous. Patient reports these have been there for several days. According to her story she walks with a spiderweb. When asked more questions, patient becomes agitated and unwilling to answer things appropriately. Patient is disheveled and not wearing shoes in the ER. We will treat the 2 lesions with a broad-spectrum antibiotic to cover MRSA as I suspect that is what this is from drug use. Vital Signs: Vital signs: Vital Signs Temperature 97.6 F 05/08/22 10:23 Pulse Rate 102 H 05/08/22 10:23 Respiratory Rate 16 05/08/22 10:23 Blood Pressure 113/67 05/08/22 10:23 Pulse Oximetry 99 05/08/22 10:23 MDM - Animal Bite Medical Decision Making 26-year-old female under the influence likely of a drug appears in the ER today for which she reports her spider bites on her face. He is recovered and Prid however appear to be slightly erythematous. Patient reports these have been there for several days. According to her story she walks with a spiderweb. When asked more questions, patient becomes agitated and unwilling to answer th ings appropriately. Patient is disheveled and not wearing shoes in the ER. We will treat the 2 lesions with a broad-spectrum antibiotic to cover MRSA as I suspect that is what this is from drug use. I discussed this with patient. We will send a prescription with her. Patient asked for antibiotics in the ER today however I discussed that pharmacies are open today and she can go get it there. Follow-up with PCP in 5 to 7 days. Return to the ER with new or worsening symptoms. Critical Care Time Critical Care Time: Critical Care Time: No Discharge Plan Discharge Patient Disposition: Home Clinical Impression: Bacterial skin infection Condition: Stable Prescriptions: New Bactrim DS 800-160 mg tablet 1 tab PO DAILY 10 Days 0RF No Action Naprosyn 500 mg tablet 500 mg PO BID PRN (Reason: pain) Qty: 20 0RF Discharge Orders: Discharge ED (Routine); Ordered 05/08/22 Ordered By: Candy Boo Discharge Diet: Usual diet Discharge Activity: Resume usual activity Patient Instructions: Opioid Safety Activity Restrictions/Additional Instructions: Bactrim as prescribed. Clean wounds with warm water and antibacterial soap. Follow-up PCP in 5 to 7 days. Return to the ER with new or worsening symptoms Coding Level of Care Code ED Utility Tractor Operator for Brian Harvey
== END 2022-05-08 10:44 | disposition home or self-care (01) ==
PROVIDERS: Emergency Provider Physician Assistant
DX: L08.89 Other specified local infections of the skin and subcutaneous tissue (principal); B96.89 Other specified bacterial agents as the cause of diseases classified elsewhere; Z87.891 Personal history of nicotine dependence
CPT/HCPCS: 99283

== ENCOUNTER 2022-07-16 22:13 | Emergency (ER) | payer SELFPAY ==
[2022-07-16 22:26] VITALS: BP 120/73; PULSE 105; RESP 16; TEMP 36.6; O2SAT 98
--- NOTE | 2022-07-16 22:36 | USR_ITS ---
NOTE: Report was unsigned for reason: Order was edited. Original Signature date and time was: 07/17/22 0057 PROCEDURE INFORMATION: Exam: US First Trimester, Transabdominal and US , Transvaginal Exam date and time: 07/16/2022 11:01 PM Age: 26 years old Clinical indication: Lmp or gestational age (in weeks): 9w1d by lmp; Other: Light vaginal bleeding x 2 hrs; ; Prior surgery; Surgery date: 6+ months; Surgery type: Csections x 3 [id number]; Additional info: Threatened miscarriage LABS AND CLINICAL REPORTS: Serum Choriogonadotropin (HCG): 6697 mIU/mL Last menstrual period start date: 05/13/2022 Gestational age (Established): 9 w 1 d Estimated due date (Established): 02/17/2023 TECHNIQUE: Imaging protocol: Real-time transabdominal obstetrical ultrasound of the maternal pelvis and a first trimester , less than 14 weeks 0 days, with image documentation. Transvaginal imaging was used for better evaluation of the fetus, adnexa, and/or cervix. COMPARISON: US OB <=14 wk fetus w transvag 12/05/2021 2:01 PM FINDINGS: Gestation: Intrauterine gestation is visualized. pole is visualized. Yolk sac is visualized. Embryonic/ heart rate: 0 bpm Extra-embryonic membranes/Placenta: Unremarkable. No subchorionic bleed. Amniotic fluid: Amniotic fluid and extra-amniotic fluid is normal for gestational age. BIOMETRY: Gestational age (AUA): 7 w 0 d Estimated due date (AUA): 03/04/2023 [place]ump length (CRL): 9.3 mm. EGA (CRL) is 7 w 0 d MATERNAL: Uterus: Uterus measures 10.2 cm x 6.4 cm x 7.2 cm. Cervix: Unremarkable. Right ovary/adnexa: Right ovary measures 2.1 cm x 2.8 cm x 2.9 cm. Right ovarian volume is 8.9 mL. Left ovary/adnexa: Left ovary measures 1.9 cm x 2.7 cm x 2.7 cm. Left ovarian volume is 7.3 mL. Intraperitoneal space: No intraperitoneal free fluid. [facility] US/US OB <= 14 weeks fetus [id number] IMPRESSION: Single viable intrauterine gestation at 7 weeks 0 days based on crown-rump length.
--- NOTE | 2022-07-16 22:44 | W.ED.PREGNAN ---
HPI - General: Chief complaint: Vaginal Bleeding Stated complaint: and bleeding Time Seen by Provider: 07/16/22 22:16 Source: patient Mode of arrival: ambulatory Limitations: no limitations History of Present Illness: 18-year-old female states she is roughly 8 weeks states that she had some slight vaginal bleeding today. Denies passing any clots she denies any pain. Denies any problems with any of her previous pregnancies. Date of Last Menstrual Period: 12/05/21 Associated symptoms: Deny abdominal pain, headache(s), nausea or vomiting Review of Systems Const: Denies: fever(s), chills, body aches or change in appetite Eyes: Denies: blurry vision or eye discomfort ENMT: Denies: throat pain or dental pain Card: Denies: chest pain Resp: Denies: dyspnea GI: Denies: abdominal pain, nausea, vomiting or diarrhea : Reports: vaginal bleeding Musc: Denies: neck pain or back pain Skin/Breast: Denies: rash Neuro: Denies: headache(s) Psych: Denies: depression Bradly/Lymph: Denies: easy bruising All/Imm: Denies: urticaria PFSH ED PFSH: Medical History Abdominal pain Carbuncle of buttock Fever Suicidal behavior with attempted self-injury Trichomonal infection Social History Smoking and tobacco status: former smoker Alcohol intake: former Female Reproductive History: Date of last menstrual period: 12/05/21 Physical Exam Const: COMMON NORMALS: no acute distress, patient oriented x3 and healthy appearing HENMT: COMMON NORMALS: normocephalic and atraumatic HEAD & SCALP: normocephalic and atraumatic Eye: COMMON NORMALS: Equal, round and reactive pupils present and EOMs intact bilaterally PUPIL: Yes Equal, round and reactive pupils present Neck/C-Spine: COMMON NORMALS: full ROM and supple Chest: COMMONS NORMALS: normal inspection of the chest and normal palpation of entire chest wall Resp: COMMON NORMALS: normal respiratory effort, No retractions, No use of accessory muscles and clear to auscultation bilaterally AUSCULTATION: clear to auscultation bilaterally Cardio: COMMON NORMALS: regular rate, regular rhythm and No murmurs present (Cardio) RATE: regular rate RHYTHM: regular rhythm GI: COMMON NORMALS: Normal to inspection, nondistended, normoactive bowel sounds present, Soft to palpation, non-tender and no masses PALPATION: Yes Soft to palpation Extremity: COMMON NORMALS: normal to inspection and full ROM Neuro: COMMON NORMALS: patient oriented x3, moves all extremities and no focal motor deficits Psych: COMMON NORMALS: mental status grossly normal, Normal thought process present and cooperative THOUGHT PROCESS: Normal thought process present Skin: COMMON NORMALS: no rashes or lesions noted and no wounds GENERAL SKIN EXAM: no rashes or lesions noted Course Vital Signs: Vital signs: Vital Signs Temperature 97.8 F 07/16/22 22:26 Pulse Rate 105 H 07/16/22 22:26 Respiratory Rate 16 07/16/22 22:26 Blood Pressure 120/73 07/16/22 22:26 Pulse Oximetry 98 07/16/22 22:26 Oxygen Delivery Me thod 07/16/22 22:26 MDM - OB/Uterine Contractions Medical Decision Making Patient presents here with vaginal bleeding ultrasound showed a demise. Her bleeding is not heavy here she is well-appearing she is stable for discharge she is to follow-up with OB in 1 to 2 days return if worsening she understands agrees to plan. Lab Data : 07/16/22 22:53 Laboratory Results WBC 9.8 10^3/uL (4.0-10.0) 07/16/22 22:53 RBC 4.55 10^6/uL (4.1-5.3) 07/16/22 22:53 Hgb 13.3 g/dL (11.5-15.3) 07/16/22 22:53 Hct 39.7 % (37.0-47.0) 07/16/22 22:53 MCV 87.3 fl (81-99) 07/16/22 22:53 MCH 29.2 pg (28.0-34.0) 07/16/22 22:53 MCHC 33.5 g/dL (30.0-36.0) 07/16/22 22:53 RDW 13.0 % (12.1-15.1) 07/16/22 22:53 Plt Count 341 10^3/cmm (130-400) 07/16/22 22:53 MPV 9.0 fL (7.4-10.4) 07/16/22 22:53 Neut % (Auto) 64.5 % 07/16/22 22:53 Lymph % (Auto) 25.6 % 07/16/22 22:53 [place] % (Auto) 7.4 % 07/16/22 22:53 Eos % (Auto) 1.7 % 07/16/22 22:53 Baso % (Auto) 0.3 % 07/16/22 22:53 Neut # (Auto) 6.31 10^3/uL (1.8-7.7) 07/16/22 22:53 Lymph # (Auto) 2.5 10^3/uL (0.8-4.8) 07/16/22 22:53 [place] # (Auto) 0.7 10^3/uL (0.2-0.9) 07/16/22 22:53 Eos # (Auto) 0.2 10^3/uL (0.0-0.8) 07/16/22 22:53 Baso # (Auto) 0.0 10^3/uL (0.0-0.1) 07/16/22 22:53 Nucleated RBC % (auto) 0 % 07/16/22 22:53 Nucleated RBCs # 0.0 /100WBC 07/16/22 22:53 Ser , Semi-Qnt 6697.00 mIU/mL 07/16/22 22:53 Discharge Plan Discharge Patient Disposition: Home Clinical Impression: Threatened miscarriage Condition: Stable Prescriptions: No Action Naprosyn 500 mg tablet 500 mg PO BID PRN (Reason: pain) Qty: 20 0RF Discharge Orders: Discharge ED (Routine); Ordered 07/16/22 Ordered By: Emily Goldman Referrals: Peace Travis MD [Physician] - 1-3 days Discharge Diet: Advance as tolerated Discharge Activity: Resume usual activity Patient Instructions: Threatened Miscarriage (ED) Coding Level of Care Code ED Astrophysics Teacher for Chg Fwd Exam Comprehensive
[2022-07-16 23:04] LABS: Basophils % 0.3 %; Eosinophils # 0.2 10^3/uL (0.0-0.8); Eosinophils % 1.7 %; Hematocrit 39.7 % (37.0-47.0); Hemoglobin 13.3 g/dL (11.5-15.3); Lymphocytes # 2.5 10^3/uL (0.8-4.8); Lymphocytes % 25.6 %; Mean Corpuscular HGB Conc 33.5 g/dL (30.0-36.0); Mean Corpuscular Hemoglobin 29.2 pg (28.0-34.0); Mean Corpuscular Volume 87.3 fl (81-99); Monocytes # 0.7 10^3/uL (0.2-0.9); Monocytes % 7.4 %; Neutrophils # 6.31 10^3/uL (1.8-7.7); Neutrophils % 64.5 %; Nucleated Red Blood Cells % 0 %; Platelet Count 341 10^3/cmm (130-400); Red Blood Count 4.55 10^6/uL (4.1-5.3); White Blood Count 9.8 10^3/uL (4.0-10.0)
== END 2022-07-16 23:44 | disposition home or self-care (01) ==
PROVIDERS: Emergency Provider Emergency Medicine
DX: O20.0 Threatened abortion (principal); Z3A.08 8 weeks gestation of pregnancy; Z87.891 Personal history of nicotine dependence
CPT/HCPCS: 76801; 76817; 84702; 85025; 99283

== ENCOUNTER 2022-07-17 10:19 | Emergency (ER) | payer SELFPAY ==
[2022-07-17 10:23] VITALS: BMI 21.7
[2022-07-17 10:26] VITALS: BP 144/113; PULSE 124; RESP 18; TEMP 37.4; O2SAT 96
[2022-07-17 10:41] VITALS: BP 131/85; PULSE 98; RESP 18; TEMP 37.4; O2SAT 96
[2022-07-17 10:55] LABS: Basophils % 0.3 %; Eosinophils # 0.2 10^3/uL (0.0-0.8); Eosinophils % 1.3 %; Hematocrit 38.7 % (37.0-47.0); Hemoglobin 12.8 g/dL (11.5-15.3); Lymphocytes # 2.3 10^3/uL (0.8-4.8); Lymphocytes % 19.8 %; Mean Corpuscular HGB Conc 33.1 g/dL (30.0-36.0); Mean Corpuscular Hemoglobin 28.9 pg (28.0-34.0); Mean Corpuscular Volume 87.4 fl (81-99); Mean Platelet Volume 9.2 fL (7.4-10.4); Monocytes # 0.9 10^3/uL (0.2-0.9); Monocytes % 7.5 %; Neutrophils # 8.29 10^3/uL (1.8-7.7); Neutrophils % 70.6 %; Nucleated Red Blood Cells % 0 %; Platelet Count 395 10^3/cmm (130-400); Red Blood Count 4.43 10^6/uL (4.1-5.3); White Blood Count 11.8 10^3/uL (4.0-10.0)
--- NOTE | 2022-07-17 10:57 | US_ITS ---
WS: [id number] EARLY OBSTETRICAL ULTRASOUND (<14 WEEKS). HISTORY: eval for , vaginal bleeding. COMPARISON: 07/16/2022 Change in appearance of the gestational sac compared to the most recent ultrasound from 07/16/2022. Th ere is an intrauterine gestational sac which is collapsed and contains internal debris and increasing blood products. A normal pole and yolk sac cannot be identified. There is increasing blood pro ducts along the endocervical canal. The sac appears inferiorly displaced toward the lower uterine seg ment. RIGHT ovary measures 3.0 x 2.4 x 3.1 cm. There is a rounded hypoechoic mass with thick wall associate d with the ovary. This is most likely a corpus luteum of measuring 2.3 x 1.7 x 2.1 cm. LEFT ovary measures 2.1 x 1.6 x 2.4 cm. US/US OB transvaginal [id number] IMPRESSION: 1. Incomplete spontaneous in progress. 2. Previously described crown-rump length is no longer evident. There is now h emorrhage along the endocervical canal with collapsing gestational sac. No card iac activity evident.
--- NOTE | 2022-07-17 11:25 | W.ED.GENADLT ---
HPI - General Adult General: Chief complaint: Vaginal Bleeding Stated complaint: 3 months preg, alot blood, pain Time Seen by Provider: 07/17/22 10:23 History of Present Illness: Patient is a 26-year-old female G5, P4 currently at 7 weeks based on ultrasound from yesterday presents emergency room with heavy vaginal bleeding and passage of clots. Patient tells me that she has had significant pelvic pain and thinks that the pain is similar to her contraction. Patient's symptoms of pelvic cramps and vaginal bleeding started yesterday. Since she was seen yesterday night, patient has no significant passage of clots and vaginal bleeding. Patient has a history of meth use and reported recent meth use in the last few days. Patient denies any diarrhea/melena/hematochezia. Patient has no focal abdominal complaints, nausea/vomiting, fever/chills, cough, runny nose or sore throat. Onset: 1 day ago Duration:1 day Location:home Severity:moderate Associated symptoms: Deny chest pain, dyspnea, nausea, rash, palpitations or vomiting Review of Systems Const: Denies: fever(s) or chills Eyes: Denies: change in vision ENMT: Denies: mouth pain Card: Denies: chest pain or palpitations Resp: Denies: dyspnea or non-productive cough GI: Denies: abdominal pain, nausea, vomiting or diarrhea : Reports: other (+pelvic cramps/vaginal bleeding/passage of clots/pelvic pain); Denies: dysuria Musc: Denies: extremity pain Skin/Breast: Denies: rash or new lesions Neuro: Denies: weakness in extremities Psych: Reports: other (Normal mood) Bradly/Lymph: Denies: easy bruising PFSH ED PFSH: Medical History Abdominal pain Carbuncle of buttock Fever Suicidal behavior with attempted self-injury Trichomonal infection Social History Smoking and tobacco status: former smoker Alcohol intake: former Physical Exam Const: COMMON NORMALS: alert HENMT: COMMON NORMALS: atraumatic HEAD & SCALP: atraumatic MOUTH: moist mucous membranes not abnormal Eye: COMMON NORMALS: EOMs intact bilaterally and conjunctivae normal CONJUNCTIVA: Yes conjunctivae normal Neck/C-Spine: COMMON NORMALS: full ROM and supple Resp: COMMON NORMALS: normal respiratory effort and clear to auscultation bilaterally AUSCULTATION: clear to auscultation bilaterally Cardio: COMMON NORMALS: regular rate RATE: regular rate GI: COMMON NORMALS: Soft to palpation and non-tender PALPATION: Yes Soft to palpation OTHER: No focal TTP. NO guarding rebound, guarding, rigidity. No CVA tenderness to percussion. Neg Altamirano/Neg McBurney's point tenderness, no suprabupic tenderness to palpation. : OTHER: Exam supervised by SERINA Wood: Dried blood on the external genitalia wnl. + Moderate amount of clots and pooled blood in the vaginal vault, no signs of active extravasation Extremity: COMMON NORMALS: full ROM Neuro: SENSORIUM/ORIENTATION: Yes alert MOTOR EXAM: No Abnormal motor strength present and Other motor observations present (no focal motor deficits) Psych: COMMON NORMALS: speech normal SPEECH: Yes normal speech MOOD & AFFECT: Yes euthymic mood Course Vital Signs: Vital signs: Vital Signs Temperature 99.4 F 07/17/22 10:41 Pulse Rate 88 07/17/22 15:26 Respiratory Rate 15 07/17/22 15:26 Blood Pressure 110/67 07/17/22 15:26 Pulse Oximetry 100 07/17/22 15:26 Oxygen Delivery Me thod 07/17/22 15:26 MDM - General Adult Medical Decision Making Patient is a 26-year-old female G5, P4 currently at 7 weeks based on ultrasound from yesterday presents emergency room with heavy vaginal bleeding and passage of clots since yesterday. Exam, patient has moderate amount of clots and pooled blood in the vaginal vault. Rest of exam is unremarkable. Hemoglobin 12.8 down from 13.3 yesterday. Discharge showed incomplete spontaneous . Case was discussed with Dr. Travis recommended [place] misoprostol 800mg. She received morphine Dilaudid for pain and prefers feeling symptomatically improved. Repeat hemoglobin is at 12.1-second repeat hemoglobin also is at 12.1. Have patient follow-up closely with Dr. Travis for further evaluation of symptoms. Patient is given strict return for any signs of contraction, fever/chills, worsening bleeding, or any new concerning complaints. I have given patient follow up with our registered nurse hh case manager to be seen by our outpatient by Dr. Vazquez for incomplete miscarriage. Patient aware of a call from our registered nurse hh case manager to schedule for appointment(s) and verbalizes understanding of the importance of following up. Disposition: Discharge. Patient counseled regarding diagnostic impression, treatment plan. Patient given ED strict return precautions to return for continuation, worsening, or development of new symptoms. Instructed to f/u w/ Dr. Levine regarding symptoms today. Patient verbalized understanding. Lab Data : 07/17/22 14:51 07/17/22 10:20 Radiology Impressions Transvaginal US 07/17/22 10:57 IMPRESSION: 1. Incomplete spontaneous in progress. 2. Previously described crown-rump length is no longer evident. There is now hemorrhage along the endocervical canal with collapsing gestational sac. No cardiac activity evident. Laboratory Results WBC 13.6 10^3/uL (4.0-10.0) H 07/17/22 14:51 RBC 4.19 10^6/uL (4.1-5.3) 07/17/22 14:51 Hgb 12.1 g/dL (11.5-15.3) 07/17/22 14:51 Hct 38.0 % (37.0-47.0) 07/17/22 14:51 MCV 90.7 fl (81-99) 07/17/22 14:51 MCH 28.9 pg (28.0-34.0) 07/17/22 14:51 MCHC 31.8 g/dL (30.0-36.0) 07/17/22 14:51 RDW 13.2 % (12.1-15.1) 07/17/22 14:51 Plt Count 297 10^3/cmm (130-400) 07/17/22 14:51 MPV 9.0 fL (7.4-10.4) 07/17/22 14:51 Neut % (Auto) 82.5 % 07/17/22 14:51 Lymph % (Auto) 10.7 % 07/17/22 14:51 [place] % (Auto) 5.9 % 07/17/22 14:51 Eos % (Auto) 0.2 % 07/17/22 14:51 Baso % (Auto) 0.3 % 07/17/22 14:51 Neut # (Auto) 11.22 10^3/uL (1.8-7.7) H 07/17/22 14:51 Lymph # (Auto) 1.5 10^3/uL (0.8-4.8) 07/17/22 14:51 [place] # (Auto) 0.8 10^3/uL (0.2-0.9) 07/17/22 14:51 Eos # (Auto) 0.0 10^3/uL (0.0-0.8) 07/17/22 14:51 Baso # (Auto) 0.0 10^3/uL (0.0-0.1) 07/17/22 14:51 Nucleated RBC % (auto) 0 % 07/17/22 14:51 Nucleated RBCs # 0.0 /100WBC 07/17/22 14:51 Sodium 131 mmol/L (136-145) L 07/17/22 10:20 Potassium 3.8 mmol/L (3.5-5.1) 07/17/22 10:20 Chloride 97 mmol/L (98-107) L 07/17/22 10:20 Carbon Dioxide 23 mmol/L (22-29) 07/17/22 10:20 Anion Gap 14.8 (5-19) 07/17/22 10:20 BUN 12 mg/dL (6-20) 07/17/22 10:20 Creatinine 0.5 mg/dL (0.5-0.9) 07/17/22 10:20 GFR Calculation 146.9 mL/min (90-130) H 07/17/22 10:20 Glucose 109 mg/dL (65-115) 07/17/22 10:20 Calculated Osmolality 272 mOsm/kg (285-295) L 07/17/22 10:20 Calcium 8.9 mg/dL (8.5-10.5) 07/17/22 10:20 Total Bilirubin 0.2 mg/dL (0.15-1.2) 07/17/22 10:20 AST 24 U/L (0-32) 07/17/22 10:20 ALT 51 U/L (0-33) H 07/17/22 10:20 Alkaline Phosphatase 67 U/L (35-105) 07/17/22 10:20 Total Protein 7.1 g/dL (6.6-8.7) 07/17/22 10:20 Albumin 4.3 g/dL (3.5-5.2) 07/17/22 10:20 Globulin 2.8 g/dL (1.3-4.6) 07/17/22 10:20 Ser , Semi-Qnt 4584.00 mIU/mL 07/17/22 10:20 Blood Type A Positive 07/17/22 11:14 Rho(D) Type Positive 07/17/22 11:14 Imaging Data Other Imaging: Radiologist's impression: [employer] [address] [place] [address] Ultrasound Report Signed Patient: Noé Hoyos Unit #: [id number] : 1995 Age/Sex: 26 / F ADM Date: 07/17/22 Loc: ER Room/Bed: Attending Dr: Ordering Provider/Ordering MD: Audie Diane MD Date of Service: 07/17/22 Procedure(s): US OB transvaginal [id number] Accession Number(s): [id number] Report Number: [id number] WS: [id number] ?EARLY OBSTETRICAL ULTRASOUND (<14 WEEKS). HISTORY: eval for , vaginal bleeding. COMPARISON: 07/16/2022 Change in appearance of the gestational sac compared to the most recent ultrasound from 07/16/2022. There is an intrauterine gestational sac which is collapsed and contains internal debris and increasing blood products. A normal pole and yolk sac cannot be identified. There is increasing blood products along the endocervical canal. The sac appears inferiorly displaced toward the lower uterine segment. RIGHT ovary measures 3.0 x 2.4 x 3.1 cm. There is a rounded hypoechoic mass with thick wall associated with the ovary. This is most likely a corpus luteum of measuring 2.3 x 1.7 x 2.1 cm. LEFT ovary measures 2.1 x 1.6 x 2.4 cm. US/US OB transvaginal [id number] IMPRESSION: ? 1.? Incomplete spontaneous in progress. 2.? Previously described crown-rump length is no longer evident. There is now hemorrhage along the endocervical canal with collapsing gestational sac. No cardiac activity evident. ? Dictated By: Melina Kwon DO Signed By: Melina Kwon DO Signed Date/Time: 07/17/22 1150 DD/ 1144 Discharge Plan Discharge Patient Disposition: Home Clinical Impression: Incomplete miscarriage Condition: Stable Prescriptions: New acetaminophen 500 mg tablet 500 mg PO Q6H PRN (Reason: pain) 5 Days Qty: 20 0RF Pepcid 20 mg tablet 20 mg PO BID PRN (Reason: abdominal pain) 10 Days Qty: 20 0RF ondansetron 4 mg tablet,disintegrating 4 mg PO TID PRN (Reason: nausea and vomiting) 4 Days Qty: 12 0RF Maalox Advanced 1,000-60 mg tablet,chewable 1 tab PO TID PRN (Reason: abdominal pain) 7 Days Qty: 21 0RF Discharge Orders: Discharge ED (Routine); Ordered 07/17/22 Ordered By: Audie Diane Discharge Diet: Advance as tolerated Discharge Activity: Increase activity as tolerated Patient Instructions: Miscarriage (ED) Activity Restrictions/Additional Instructions: Our registered nurse hh case manager will have you follow-up with Dr. Levine in the next few days. You would be expected to have a phone call with our registered nurse hh case manager who will put you on the schedule. You can expect a call from us in the next 2-3 days. If you don't hear from us, call us back in the emergency room at [phone]. Come back to the emergency room you notice any heavy vaginal bleeding, pelvic cramps, bleeding, or any new or concerning complaints. Coding Level of Care Code ED Unit Aid for [place] Fwd Exam Comprehensive
[2022-07-17 11:34] LABS: Alanine Aminotransferase 51 U/L (0-33); Albumin Level 4.3 g/dL (3.5-5.2); Alkaline Phosphatase 67 U/L (35-105); Anion Gap 14.8 (5-19); Aspartate Amino Transferase 24 U/L (0-32); Blood Urea Nitrogen 12 mg/dL (6-20); Calcium 8.9 mg/dL (8.5-10.5); Carbon Dioxide 23 mmol/L (22-29); Chloride 97 mmol/L (98-107); Globulin 2.8 g/dL (1.3-4.6); Glomerular Filtration Rate 146.9 mL/min (90-130); Glucose 109 mg/dL (65-115); Osmolality Calculated 272 mOsm/kg (285-295); Potassium 3.8 mmol/L (3.5-5.1); Sodium 131 mmol/L (136-145); Total Bilirubin 0.2 mg/dL (0.15-1.2); Total Protein 7.1 g/dL (6.6-8.7)
[2022-07-17 11:59] VITALS: RESP 15; O2SAT 96
[2022-07-17] MEDS: morphine 4 mg/mL SDV 1 mL IVP (11:59)
[2022-07-17] MEDS: miSOPROStol 200 mcg Tablet 800 MCG PR (13:48)
[2022-07-17 13:55] VITALS: RESP 14; O2SAT 95
[2022-07-17] MEDS: HYDROmorphone 1 mg/mL INJ 1 mL 0.5 MG IVP (13:55)
[2022-07-17 14:24] LABS: Basophils % 0.3 %; Eosinophils % 0.3 %; Hematocrit 37.1 % (37.0-47.0); Hemoglobin 12.1 g/dL (11.5-15.3); Lymphocytes # 1.9 10^3/uL (0.8-4.8); Lymphocytes % 12.6 %; Mean Corpuscular HGB Conc 32.6 g/dL (30.0-36.0); Mean Corpuscular Hemoglobin 28.7 pg (28.0-34.0); Mean Corpuscular Volume 88.1 fl (81-99); Mean Platelet Volume 8.9 fL (7.4-10.4); Monocytes % 6.7 %; Neutrophils # 11.64 10^3/uL (1.8-7.7); Neutrophils % 79.6 %; Nucleated Red Blood Cells % 0 %; Platelet Count 356 10^3/cmm (130-400); Red Blood Count 4.21 10^6/uL (4.1-5.3); Red Cell Distribution Width 13.2 % (12.1-15.1); White Blood Count 14.6 10^3/uL (4.0-10.0)
[2022-07-17 14:57] LABS: Basophils % 0.3 %; Eosinophils % 0.2 %; Hemoglobin 12.1 g/dL (11.5-15.3); Lymphocytes # 1.5 10^3/uL (0.8-4.8); Lymphocytes % 10.7 %; Mean Corpuscular HGB Conc 31.8 g/dL (30.0-36.0); Mean Corpuscular Hemoglobin 28.9 pg (28.0-34.0); Mean Corpuscular Volume 90.7 fl (81-99); Monocytes # 0.8 10^3/uL (0.2-0.9); Monocytes % 5.9 %; Neutrophils # 11.22 10^3/uL (1.8-7.7); Neutrophils % 82.5 %; Nucleated Red Blood Cells % 0 %; Platelet Count 297 10^3/cmm (130-400); Red Blood Count 4.19 10^6/uL (4.1-5.3); Red Cell Distribution Width 13.2 % (12.1-15.1); White Blood Count 13.6 10^3/uL (4.0-10.0)
[2022-07-17 15:26] VITALS: BP 110/67; PULSE 88; RESP 15; O2SAT 100
--- NOTE | 2022-07-20 11:42 | DCPLANNER ---
Addendum entered by Lina Hernández 08/05/22 12:54: Patient had an appointment scheduled with [facility] - appointment was cancelled Addendum entered by Lina Hernández 07/21/22 05:58: Patient has a follow up appointment scheduled for Sunday, July 24, 2022 at 11:[address] Meneses at [facility]. Clinic will call patient with appointment information. Original Note: global implementation manager had message to schedule a follow up appointment for patient with [facility]. global implementation manager sent patients information to the front office staff at [facility]. Patients information will be printed and reviewed. Clinic will call patient with appointment information.
== END 2022-07-17 16:16 | disposition home or self-care (01) ==
PROVIDERS: Physician Assistant; Emergency Provider Emergency Medicine
DX: O03.4 Incomplete spontaneous abortion without complication (principal); Z87.891 Personal history of nicotine dependence
CPT/HCPCS: 36415; 76817; 80053; 84702; 85025; 86900; 96374; 96375; 99285; J1170; J2270

== ENCOUNTER → 2022-08-16 15:51 | Outpatient (BNVA) | payer SELFPAY | PROVIDERS: Visit Provider Registered Nurse Neonatal Intensive Care | DX: N39.0 Urinary tract infection, site not specified (principal); R39.9 Unspecified symptoms and signs involving the genitourinary system | CPT/HCPCS: 81000 ==

== ENCOUNTER 2022-08-19 10:43 | Emergency (ER) | payer SELFPAY ==
[2022-08-19 10:46] VITALS: BP 107/64; PULSE 94; RESP 16; TEMP 36.8; O2SAT 98; BMI 22.6
--- NOTE | 2022-08-19 11:12 | XRR_ITS ---
PROCEDURE INFORMATION: Exam: XR Abdomen Exam date and time: 08/19/2022 11:19 AM Age: 26 years old Clinical indication: Abdominal pain; Localized; Left lower quadrant (llq); Prior surgery; Surgery type: C section; Additional info: Llq abdominal pain TECHNIQUE: Imaging protocol: Radiologic exam of the abdomen. Views: Frontal supine view of the abdomen. 1 View. COMPARISON: CT abdomen pelvis w con* [id number] 10/28/2020 11:37 AM FINDINGS: Gastrointestinal tract: Normal. No bowel dilation. Bones/joints: Unremarkable. XR/XR KUB portable [id number] IMPRESSION: No acute findings.
--- NOTE | 2022-08-19 11:13 | W.ED.ABDPA2 ---
HPI - Abdominal Pain General: Chief Complaint: Abdominal Pain Stated Complaint: abd pain, black stool Time Seen by Provider: 08/19/22 10:51 History of Present Illness: Patient is a 26-year-old female that comes to the ED in police custody with abdominal pain. She states that abdominal pain has been going on now for approximately 1 week. She says the pain is currently a 7 out of 10 and is located in the left lower quadrant of the abdomen. She endorses some mild nausea but denies any emesis. Endorses some constipation and has BMs every other day. Stool is black-colored. Associated Symptoms: Reports constipation and nausea; Denies chills, diarrhea, dysuria, fever(s), hematochezia, hematuria and vomiting Review of Systems Const: Denies: fever(s), chills or fatigue Eyes: Denies: change in vision or eye discomfort ENMT: Denies: throat pain, odynophagia, nasal discharge or nasal congestion Card: Denies: chest pain, palpitations, edema, swelling of feet/ankles, dyspnea on exertion or orthopnea Resp: Denies: dyspnea, productive cough or non-productive cough GI: Reports: abdominal pain, nausea and constipation; Denies: vomiting, diarrhea or hematochezia : Denies: flank pain, dysuria or hematuria Musc: Denies: neck pain, back pain or extremity swelling Skin/Breast: Denies: rash or new lesions Neuro: Denies: headache(s), numbness in extremities or weakness in extremities PFSH ED PFSH: Medical History Abdominal pain Carbuncle of buttock Fever Suicidal behavior with attempted self-injury Trichomonal infection Social History Smoking and tobacco status: current every day smoker Alcohol intake: former Physical Exam Const: COMMON NORMALS: no acute distress, patient oriented x3, healthy appearing and alert GENERAL APPEARANCE: cooperative and comfortable HENMT: COMMON NORMALS: normocephalic HEAD & SCALP: normocephalic MOUTH: Normal oral and palatal mucosa present THROAT: posterior oropharynx normal and uvula midline Neck/C-Spine: COMMON NORMALS: supple GENERAL: Yes normal visual inspection Resp: COMMON NORMALS: normal respiratory effort, No retractions, No use of accessory muscles and clear to auscultation bilaterally AUSCULTATION: clear to auscultation bilaterally Cardio: COMMON NORMALS: regular rate, regular rhythm, S1 normal heart sound present, S2 normal heart sound present, No gallops present (Cardio), No clicks present (Cardio), No murmurs present (Cardio) and Peripheral pulses 2+ throughout RATE: regular rate RHYTHM: regular rhythm HEART SOUNDS: S1 normal heart sound present and S2 normal heart sound present PERIPHERAL PULSES: Peripheral pulses 2+ throughout GI: COMMON NORMALS: Normal to inspection, nondistended, normoactive bowel sounds present, Soft to palpation, non-tender and no masses PALPATION: Yes Soft to palpation and Yes Tenderness to palpation present (GI) Details: LLQ (Mild tenderness) : COMMON NORMALS: Yes no CVA tenderness BLADDER/KIDNEY EXAM: Yes no CVA tenderness Back/Pelvis: COMMON NORMALS: no CVA tenderness Extremity: COMMON NORMALS: normal to inspection Neuro: COMMON NORMALS: patient oriented x3 SENSORIUM/ORIENTATION: Yes alert GAIT: Yes Normal gait present Skin: GENERAL SKIN EXAM: dry skin Course Vital Signs: Vital signs: Vital Signs Temperature 98.3 F 08/19/22 10:46 Pulse Rate 94 08/19/22 10:46 Respiratory Rate 16 08/19/22 10:46 Blood Pressure 107/64 08/19/22 10:46 Pulse Oximetry 98 08/19/22 10:46 Oxygen Delivery Me thod 08/19/22 10:46 MDM - Abdominal Pain Medical Decision Making Patient is a 26-year-old female comes to the ED in police custody with abdominal pain. She also endorses having some constipation. Vitals are stable. Patient appears nontoxic in no acute distress or pain she has some mild tenderness to the left lower quadrant of abdomen. All patient's labs were unremarkable. Abdominal x-ray did show quite a bit of stool in the descending colon. Patient's abdominal pain likely due to constipation and she is stable for discharge. She was DC'd with a prescription for MiraLAX. Return ED precautions given. Patient understood and agreed with plan. Lab Data I reviewed the patient's lab results. : 08/19/22 11:20 08/19/22 11:20 Labs/Radiology: Radiology Impressions KUB X-Ray 08/19/22 11:12 IMPRESSION: No acute findings. Laboratory Results WBC 9.5 10^3/uL (4.0-10.0) 08/19/22 11:20 RBC 3.91 10^6/uL (4.1-5.3) L 08/19/22 11:20 Hgb 11.2 g/dL (11.5-15.3) L 08/19/22 11:20 Hct 34.9 % (37.0-47.0) L 08/19/22 11:20 MCV 89.3 fl (81-99) 08/19/22 11:20 MCH 28.6 pg (28.0-34.0) 08/19/22 11:20 MCHC 32.1 g/dL (30.0-36.0) 08/19/22 11:20 RDW 13.6 % (12.1-15.1) 08/19/22 11: Plt Count 358 10^3/cmm (130-400) 08/19/22 11:20 MPV 8.9 fL (7.4-10.4) 08/19/22 11:20 Neut % (Auto) 65.4 % 08/19/22 11:20 Lymph % (Auto) 25.4 % 08/19/22 11:20 [place] % (Auto) 6.5 % 08/19/22 11:20 Eos % (Auto) 1.7 % 08/19/22 11:20 Baso % (Auto) 0.4 % 08/19/22 11:20 Neut # (Auto) 6.24 10^3/uL (1.8-7.7) 08/19/22 11:20 Lymph # (Auto) 2.4 10^3/uL (0.8-4.8) 08/19/22 11:20 [place] # (Auto) 0.6 10^3/uL (0.2-0.9) 08/19/22 11:20 Eos # (Auto) 0.2 10^3/uL (0.0-0.8) 08/19/22 11:20 Baso # (Auto) 0.0 10^3/uL (0.0-0.1) 08/19/22 11:20 Nucleated RBC % (auto) 0 % 08/19/22 11:20 Nucleated RBCs # 0.0 /100WBC 08/19/22 11:20 Sodium 138 mmol/L (136-145) 08/19/22 11:20 Potassium 4.1 mmol/L (3.5-5.1) 08/19/22 11:20 Chloride 103 mmol/L (98-107) 08/19/22 11:20 Carbon Dioxide 26 mmol/L (22-29) 08/19/22 11:20 Anion Gap 13.1 (5-19) 08/19/22 11:20 BUN 15 mg/dL (6-20) 08/19/22 11:20 Creatinine 0.6 mg/dL (0.5-0.9) 08/19/22 11:20 GFR Calculation 119.0 mL/min (90-130) 08/19/22 11:20 Glucose 101 mg/dL (65-115) 08/19/22 11:20 Calculated Osmolality 287 mOsm/kg (285-295) 08/19/22 11:20 Calcium 8.9 mg/dL (8.5-10.5) 08/19/22 11:20 Total Bilirubin 0.2 mg/dL (0.15-1.2) 08/19/22 11:20 AST 12 U/L (0-32) 08/19/22 11:20 ALT 22 U/L (0-33) 08/19/22 11:20 Alkaline Phosphatase 50 U/L (35-105) 08/19/22 11:20 Total Protein 6.2 g/dL (6.6-8.7) L 08/19/22 11:20 Albumin 3.9 g/dL (3.5-5.2) 08/19/22 11:20 Globulin 2.3 g/dL (1.3-4.6) 08/19/22 11:20 Lipase 40 U/L (13-60) 08/19/22 11:20 HCG, Qual Negative (Negative) 08/19/22 11:20 Urine Color Yellow (Yellow) 08/19/22 12:00 Urine Appearance Hazy (CLEAR) A 08/19/22 12:00 Urine pH 7 (5-7) 08/19/22 12:00 Ur Specific [place] 1.010 (1.005-1.030) 08/19/22 12:00 Urine Protein Neg (Negative) 08/19/22 12:00 Urine Glucose (UA) Norm (Normal) 08/19/22 12:00 Urine Ketones Negative (Negative) 08/19/22 12:00 Urine Blood Neg (Negative) 08/19/22 12:00 Urine Nitrate Negative (Negative) 08/19/22 12:00 Urine Bilirubin Neg (Negative) 08/19/22 12:00 Urine Urobilinogen Norm mg/dL (Negative) 08/19/22 12:00 Ur Leukocyte Esterase Negative (Negative) 08/19/22 12:00 Discharge Plan Discharge Patient Disposition: Home Clinical Impression: Constipation Qualifiers: Constipation type: unspecified constipation type Qualified Code(s): K59.00 - Constipation, unspecified Condition: Stable Prescriptions: New Miralax 17 gram/dose powder 17 g PO DAILY 3 Days Qty: 119 0RF No Action nitrofurantoin monohyd/m-cryst [Macrobid] 100 mg capsule 100 mg PO BID 5 Days Qty: 10 0RF Rx Instructions: must administer with a meal/food Discharge Orders: Discharge ED (Routine); Ordered 08/19/22 Ordered By: Misha Stewart Discharge Diet: Regular Discharge Activity: Increase activity as tolerated Patient Instructions: Constipation (DC) Activity Restrictions/Additional Instructions: Follow-up with medical provider as directed in the next 5 to 7 days reevaluation. Take MiraLAX daily for the next 3 days to help with bowel movements. Take medications as prescribed. Return to the ER or your medical provider if condition worsens. Please read and understand discharge instructions. Thank you for choosing [facility] for your healthcare needs today. Please realize this is an emergency room and that we are providing you with a medical screening exam and this may not be complete and all inclusive of all the testing and or work up that you may need to determine your ailment or severity of your illness. It is very important that you follow up as instructed or that you return to the Emergency Department should you have concerns or if your condition changes or worsens in any way. Coding Level of Care Code ED Railroad Car Inspector for Brian Harvey Exam Comprehensive
[2022-08-19 11:30] LABS: Basophils % 0.4 %; Eosinophils # 0.2 10^3/uL (0.0-0.8); Eosinophils % 1.7 %; Hematocrit 34.9 % (37.0-47.0); Hemoglobin 11.2 g/dL (11.5-15.3); Lymphocytes # 2.4 10^3/uL (0.8-4.8); Lymphocytes % 25.4 %; Mean Corpuscular HGB Conc 32.1 g/dL (30.0-36.0); Mean Corpuscular Hemoglobin 28.6 pg (28.0-34.0); Mean Corpuscular Volume 89.3 fl (81-99); Mean Platelet Volume 8.9 fL (7.4-10.4); Monocytes # 0.6 10^3/uL (0.2-0.9); Monocytes % 6.5 %; Neutrophils # 6.24 10^3/uL (1.8-7.7); Neutrophils % 65.4 %; Nucleated Red Blood Cells % 0 %; Platelet Count 358 10^3/cmm (130-400); Red Blood Count 3.91 10^6/uL (4.1-5.3); Red Cell Distribution Width 13.6 % (12.1-15.1); White Blood Count 9.5 10^3/uL (4.0-10.0)
[2022-08-19] MEDS: morphine 4 mg/mL SDV 1 mL IVP (11:34)
[2022-08-19] MEDS: ondansetron 2 mg/ML SDV 2 mL 4 MG IVP (11:34)
[2022-08-19 11:46] LABS: HCG, Serum Qual Negative (Negative)
[2022-08-19 11:50] LABS: Alanine Aminotransferase 22 U/L (0-33); Albumin Level 3.9 g/dL (3.5-5.2); Alkaline Phosphatase 50 U/L (35-105); Anion Gap 13.1 (5-19); Aspartate Amino Transferase 12 U/L (0-32); Blood Urea Nitrogen 15 mg/dL (6-20); Calcium 8.9 mg/dL (8.5-10.5); Carbon Dioxide 26 mmol/L (22-29); Chloride 103 mmol/L (98-107); Globulin 2.3 g/dL (1.3-4.6); Glucose 101 mg/dL (65-115); Lipase 40 U/L (13-60); Osmolality Calculated 287 mOsm/kg (285-295); Potassium 4.1 mmol/L (3.5-5.1); Sodium 138 mmol/L (136-145); Total Bilirubin 0.2 mg/dL (0.15-1.2); Total Protein 6.2 g/dL (6.6-8.7)
[2022-08-19 12:29] LABS: Add Urine Microscopic? NO; Charge for UA Resulting for Rev
[2022-08-19 12:44] LABS: Urine Appearance Hazy (CLEAR); Urine Color Yellow (Yellow); pH Urine 7 (5-7)
[2022-08-19 12:45] LABS: Bilirubin Urine Neg (Negative); Blood Urine Neg (Negative); Glucose Urine UA Norm (Normal); Ketones Urine Negative (Negative); Leukocyte Esterase Urine Negative (Negative); Nitrate Urine Negative (Negative); Protein Urine Neg (Negative); Urobilinogen Urine Norm (Negative)
== END 2022-08-19 13:04 | disposition home or self-care (01) ==
PROVIDERS: Emergency Provider Physician Assistant
DX: K59.00 Constipation, unspecified (principal); F17.210 Nicotine dependence, cigarettes, uncomplicated
CPT/HCPCS: 74018; 80053; 81003; 83690; 84703; 85025; 96374; 96375; 99284; J2270; J2405

== ENCOUNTER 2022-08-21 12:32 | Emergency (ER) | payer SELFPAY ==
--- NOTE | 2022-08-21 12:37 | ED_ITS ---
HPI - General Adult General: Chief complaint: Abdominal Pain Stated complaint: worms in stool Time Seen by Provider: 08/21/22 12:37 History of Present Illness: Ms. Hoyos is a 26-year-old lady presenting to the emergency department due to concern of her white worms in stools. She notes a few day history of abdominal discomfort and generalized malaise. Also endorses constipation which she was previously evaluated for. Worms were just noticed today. She denies itching or pain with bowel movements. No blood in stool. She is accompanied by law firm consultant who does endorse that she saw the small white worms moving in stool. No other specific changes in health, exacer bating, or alleviating factors identified. Onset (ago): day(s) Location: abdomen Pain Consistency: intermittent Associated symptoms: Reports other; Deny fevers/chills Review of Systems General: Reports: 10 or more systems reviewed and unremarkable except in HPI and below PFSH ED PFSH: Medical History Abdominal pain Carbuncle of buttock Fever Suicidal behavior with attempted self-injury Trichomonal infection Social History Smoking and tobacco status: current every day smoker Alcohol intake: former Physical Exam Const: COMMON NORMALS: alert GENERAL APPEARANCE: cooperative and well developed HENMT: COMMON NORMALS: normocephalic and atraumatic HEAD & SCALP: normocephalic and atraumatic Eye: COMMON NORMALS: conjunctivae normal CONJUNCTIVA: Yes conjunctivae normal SCLERA: sclerae normal Neck/C-Spine: COMMON NORMALS: supple GENERAL: Yes trachea midline Resp: COMMON NORMALS: normal respiratory effort EFFORT & INSPECTION: Yes able to speak in complete sentences Cardio: COMMON NORMALS: regular rate and regular rhythm RATE: regular rate RHYTHM: regular rhythm GI: COMMON NORMALS: Soft to palpation PALPATION: Yes Soft to palpation and No Tenderness to palpation present (GI) Extremity: GENERAL: Yes normal exam except as noted and No edema Neuro: COMMON NORMALS: moves all extremities SENSORIUM/ORIENTATION: Yes alert and No Orientation impaired Psych: COMMON NORMALS: mental status grossly normal and Normal thought process present THOUGHT PROCESS: Normal thought process present Course Vital Signs: Vital signs: Vital Signs Temperature 98 F 11/04/22 12:46 Pulse Rate 98 08/21/22 13:20 Respiratory Rate 16 08/21/22 13:20 Blood Pressure 103/70 08/21/22 13:20 Pulse Oximetry 98 08/21/22 13:20 Oxygen Delivery Me thod 08/21/22 12:46 MDM - General Adult Medical Decision Making 26-year-old female presenting from snf for concern for worms in stool. Patient is nontoxic on exam. Does report continued mild abdominal symptoms from prior ED visit which was reviewed. No indication for repeat imaging. Stool sent for analysis. Plan to treat with albendazole. The results of ED evaluation were discussed with the patient and law firm consultant including prescriptions and/or symptomatic cares (if applicable) including appropriate and responsible use, followup plan, and return precautions. The patient and law firm consultant verbalized understanding and felt safe for discharge. Medical Records I reviewed the patient's medical records. Lab Data I reviewed the patient's lab results. Discharge Plan Discharge Patient Disposition: Home Clinical Impression: Intestinal worms, Abdominal pain Condition: Stable Prescriptions: New albendazole 200 mg tablet 400 mg PO .twice 14 Days Qty: 4 0RF Rx Instructions: 1 dose today then 1 dose in 2 weeks, must administer with food, preferably a high-fat meal No Action nitrofurantoin monohyd/m-cryst [Macrobid] 100 mg capsule 100 mg PO BID 5 Days Qty: 10 0RF Rx Instructions: must administer with a meal/food Discharge Orders: Discharge ED (Routine); Ordered 08/21/22 Ordered By: Titus Alcala Discharge Diet: Usual diet Discharge Activity: Increase activity as tolerated Patient Instructions: Abdominal Pain (ED) Activity Restrictions/Additional Instructions: Thank you for visiting the emergency department. You were seen and evaluated for concern over intestinal worms. Based on description I will treat for most common intestinal worms which includes 1 dose today and 1 dose in 2 weeks. I would expect improvement. Additionally please use - carefully hand washing after using the toilet, and before and after eating - Thoroughly launder all bedding, clothing, and toys to destroy any lingering eggs - Launder all bedding every 3-7 days for three weeks - Wash underwear and pajamas daily for two weeks Please follow-up with a primary care provider and [facility] for your behavioral health concerns. Return to the emergency department for uncontrolled symptoms, thoughts of harming yourself or others, or anything else that you are concerned about a feel needs emergency department evaluation. Coding Level of Care Code ED Process Coordinator for Brian Harvey
[2022-08-21 12:46] VITALS: BP 116/73; PULSE 97; RESP 16; TEMP 36.6; O2SAT 97; BMI 19.2
--- NOTE | 2022-08-21 13:07 | PC.NURSE ---
pt reports lower abdominal pain x1 week and noticed worms in her stool yesterday. pt reports nausea, denies vomiting or any rectal itching. pt arrives from alf, brought stool sample with them. pt lung sounds clear bilat. bowel sounds hyperactive x4.
[2022-08-21 13:20] VITALS: BP 103/70; PULSE 98; RESP 16; O2SAT 98
== END 2022-08-21 13:32 | disposition home or self-care (01) ==
PROVIDERS: Emergency Provider Emergency Medicine
DX: B83.9 Helminthiasis, unspecified (principal); R10.9 Unspecified abdominal pain; F17.210 Nicotine dependence, cigarettes, uncomplicated
CPT/HCPCS: 87506; 99283

== ENCOUNTER 2022-09-08 18:13 | Emergency (ER) | payer SELFPAY ==
[2022-09-08 18:27] VITALS: BP 147/87; PULSE 109; RESP 18; TEMP 36.2; O2SAT 95
--- NOTE | 2022-09-08 19:27 | ED_ITS ---
HPI - Extremity Problem General: Chief complaint: Extremity Problem,Nontraumatic Stated complaint: feet have sores and numb Time Seen by Provider: 09/08/22 19:27 History of Present Illness: Patient comes in today for complaints of pain to bilateral feet. Patient is concerned about an infection or diabetes. Patient appears nontoxic. Patient does report a history of opioid abuse and methadone use. Patient has not been using methadone over the last 8 months. Associated symptoms: Deny fever(s) Review of Systems Const: Denies: fever(s) Musc: Reports: extremity pain PFSH ED PFSH: Medical History Abdominal pain Carbuncle of buttock Fever Suicidal behavior with attempted self-injury Trichomonal infection Social History Smoking and tobacco status: current every day smoker Alcohol intake: former Physical Exam Const: COMMON NORMALS: alert HENMT: COMMON NORMALS: normocephalic HEAD & SCALP: normocephalic Neck/C-Spine: COMMON NORMALS: full ROM Resp: COMMON NORMALS: normal respiratory effort and clear to auscultation bilaterally AUSCULTATION: clear to auscultation bilaterally Cardio: COMMON NORMALS: regular rate and regular rhythm RATE: regular rate RHYTHM: regular rhythm GI: AUSCULTATION: Yes normoactive bowel sounds PALPATION: No Tenderness to palpation present (GI) Extremity: COMMON NORMALS: normal to inspection Neuro: SENSORIUM/ORIENTATION: Yes alert Skin: COMMON NORMALS: no rashes or lesions noted GENERAL SKIN EXAM: no rashes or lesions noted Course Vital Signs: Vital signs: Vital Signs Temperature 97.2 F L 09/08/22 18:27 Pulse Rate 88 09/08/22 19:28 Respiratory Rate 17 09/08/22 19:28 Blood Pressure 131/95 09/08/22 19:28 Pulse Oximetry 99 09/08/22 19:28 Oxygen Delivery Me thod 09/08/22 19:28 MDM - Extremity (Nontraumatic) Medical Decision Making Patient comes in today for complaints of sores to her feet and pain of her feet. On exam there is no sign of redness or swelling or lesions on her feet. Pulses are intact. Patient moves all extremities well. Vital signs are normal. Patient reported some sores on her back which is appears to be dry skin. Differential diagnosis includes but not limited to malingering, neuropathy, diabetes, drug-seeking. Patient left prior to completion of services. I did not discuss risks and benefits with patient. Discharge Plan Discharge Patient Disposition: Left Against Medical Advice Clinical Impression: Pain in both feet Condition: Stable Prescriptions: No Action nitrofurantoin monohyd/m-cryst [Macrobid] 100 mg capsule 100 mg PO BID 5 Days Qty: 10 0RF Rx Instructions: must administer with a meal/food Coding Level of Care Code ED Household Refrigerator Mechanic for Chg Fwd Exam Comprehensive
[2022-09-08 19:28] VITALS: BP 131/95; PULSE 88; RESP 17; O2SAT 99
--- NOTE | 2022-09-08 19:54 | PC.NURSE ---
patient not in room when eentered for glucose and attempt for urine collection.
--- NOTE | 2022-09-08 19:59 | PC.NURSE ---
patient not in room x 3 . Provider notified.
== END 2022-09-08 20:01 | disposition left against medical advice (07) ==
PROVIDERS: Emergency Provider Nurse Practitioner Family
DX: M79.672 Pain in left foot (principal); M79.671 Pain in right foot
CPT/HCPCS: 99282

== ENCOUNTER → 2023-04-29 15:38 | Outpatient (BNVA) | payer SELFPAY | PROVIDERS: Visit Provider Emergency Medicine | DX: N64.4 Mastodynia (principal); L74.0 Miliaria rubra; L73.9 Follicular disorder, unspecified | CPT/HCPCS: 81025 ==

== ENCOUNTER 2023-05-13 09:15 | Emergency (ER) | payer SELFPAY ==
[2023-05-13 09:32] VITALS: BP 106/69; PULSE 98; TEMP 36.7; O2SAT 97; BMI 22.4
--- NOTE | 2023-05-13 09:42 | W.ED.PSYCHS ---
HPI - Psych General: Chief Complaint: Psychiatric Symptoms Stated Complaint: medication assessment Time Seen by Provider: 05/13/23 09:22 Source: patient Mode of arrival: other (Custody of law enforcement) History of Present Illness: 27-year-old female presents emergency room complaining of suicidal thoughts no specific plan. Patient states she has PTSD and she needs her medications adjusted she has not been taking them for the last 5 to 7 months. We did see her previously once under similar conditions she is also incarcerated at that time Dr. Solorio recommended starting Abilify she is currently not taking anything Think she mentions having been taking it past is Restoril. She is awake alert and oriented. MD complaint: feels depressed History of same: Yes Relieving factors: none Exacerbating factors: other (Situational) Associated symptoms: Reports depression, suicidal ideation and racing thoughts Treatments prior to arrival: none If self harm: admits thoughts of self harm Review of Systems Const: Denies: fever(s) or chills Card: Denies: chest pain Resp: Denies: dyspnea GI: Denies: abdominal pain : Denies: dysuria, urinary frequency or urinary urgency Psych: Reports: depression and suicidal ideation [facility] ED PFSH: Medical History Abdominal pain Carbuncle of buttock Fever Suicidal behavior with attempted self-injury Trichomonal infection Social History Smoking and tobacco status: current every day smoker Alcohol intake: former Substance/Drug Use: current Physical Exam Const: COMMON NORMALS: no acute distress GENERAL APPEARANCE: cooperative and comfortable ORIENTATION/CONSCIOUSNESS: Yes awake, Yes oriented to person, Yes oriented to place and Yes oriented to time Neuro: SENSORIUM/ORIENTATION: Yes oriented to person, Yes oriented to place and Yes oriented to time Course Vital Signs: Vital signs: Vital Signs Temperature 98.1 F 05/13/23 09:32 Pulse Rate 98 05/13/23 09:32 Blood Pressure 106/69 05/13/23 09:32 Pulse Oximetry 97 05/13/23 09:32 Oxygen Delivery Me thod Room Air 05/13/23 09:32 MDM - Psych Medical Decision Making Reviewed chart and discussed with Dr. Solorio. He is recommending that we start patient on Abilify 5 mg at at bedtime. Follow-up with [facility] once patient is dismissed from the [facility]. Patient expressed interest in starting Suboxone and advised we do not Medical Records I reviewed the patient's medical records. Discharge Plan Discharge Patient Disposition: Home Clinical Impression: Anxiety, Suicidal ideation, Post traumatic stress disorder (PTSD) Condition: Stable Prescriptions: New Abilify 5 mg tablet 5 mg PO DAILY Qty: 30 0RF Discharge Orders: Discharge ED (Routine); Ordered 05/13/23 Ordered By: Saran Fountain Discharge Diet: Usual diet Discharge Activity: Resume usual activity Patient Instructions: Opioid Safety, Pain Management Activity Restrictions/Additional Instructions: We reviewed your case with psychiatry on-call today. They recommend Abilify 5 mg at at bedtime. Follow-up with [facility] once you are dismissed from incarceration. Recommend suicide monitoring at facility. Coding Level of Care Code ED Clearing Distribution Clerk for Brian Harvey
--- NOTE | 2023-05-13 10:25 | CSC.QMHP_ITS ---
[facility] Contact Note [facility] Contact Note 05/10/23 ([id number])- This registered nurse was consulted by Dejon RICHARDSON, regarding client needs of medication assessment and medication management. [facility] reports client has been experiencing PTSD nightmares and enuresis. This RN discussed with [facility], notifying Dr. Solorio to see if he could try to arrange time to see client at this center for medication evaluation. At [address] Solorio to give him update on client symptoms and history. Dr. Solorio responded that he might be able to help. This nurse asked for availablity so [facility] could coordinate date and time with [facility] to bring client in for assessment. This nurse waiting on response from Dr. Solorio. 05/12/23 (0015)- This RN followed up with Dejon FAUSTIN, regarding client. This RN informed [facility] that we are still awaiting response from Dr. Solorio on date and time. [facility] informed this nurse that he has been in contact with [facility] and they report they will transport her to the emergency department if they need to. This RN offered to follow up with Dr. Solorio this morning to see if we can get a date and time scheduled for client to be seen at the [facility] center. At [address] Solorio to follow up from Wednesday. This RN awaiting response back from Dr. Solorio.
--- NOTE | 2023-05-13 10:25 | W.CSC.QMHPCN ---
[facility] Contact Note [facility] Contact Note 05/10/23 ([id number])- This registered nurse was consulted by Dejon RICHARDSON, regarding client needs of medication assessment and medication management. [facility] reports client has been experiencing PTSD nightmares and enuresis. This RN discussed with [facility], notifying Dr. Solorio to see if he could try to arrange time to see client at this center for medication evaluation. At [address] Solorio to give him update on client symptoms and history. Dr. Solorio responded that he might be able to help. This nurse asked for availablity so [facility] could coordinate date and time with [facility] to bring client in for assessment. This nurse waiting on response from Dr. Solorio. 05/12/23 ([id number])- This RN followed up with Dejon FAUSTIN, regarding client. This RN informed [facility] that we are still awaiting response from Dr. Solorio on date and time. [facility] informed this nurse that he has been in contact with [facility] and they report they will transport her to the emergency department if they need to. This RN offered to follow up with Dr. Solorio this morning to see if we can get a date and time scheduled for client to be seen at the [facility] center. At [address] Solorio to follow up from Wednesday. This RN awaiting response back from Dr. Solorio.
== END 2023-05-13 10:11 | disposition home or self-care (01) ==
PROVIDERS: Emergency Provider Family Medicine
DX: R45.851 Suicidal ideations (principal); F41.9 Anxiety disorder, unspecified; F43.10 Post-traumatic stress disorder, unspecified; Z91.51 Personal history of suicidal behavior; F17.210 Nicotine dependence, cigarettes, uncomplicated
CPT/HCPCS: 99283

== ENCOUNTER 2023-05-16 12:03 | Emergency (ER) | payer SELFPAY ==
[2023-05-16 12:09] VITALS: BP 120/76; PULSE 96; RESP 17; TEMP 36.8; O2SAT 94
--- NOTE | 2023-05-16 12:23 | CTR_ITS ---
PROCEDURE INFORMATION: Exam: CT Abdomen And Pelvis Without Contrast Exam date and time: 05/16/2023 12:57 PM Age: 27 years old Clinical indication: Abdominal pain; Flank; Right; Additional info: Right flank pain, HX kidney stones TECHNIQUE: Imaging protocol: Computed tomography of the abdomen and pelvis without contrast. Radiation optimization: All CT scans at this facility use at least one of these dose optimization techniques: automated exposure control; mA and/or kV adjustment per patient size (includes targeted exams where dose is matched to clinical indication); or iterative reconstruction. REPORTING DATA: Count of CT and Cardiac NM exams in prior 12 months: This patient has received 0 known CTs and 0 known cardiac nuclear medicine studies in the 12 months prior to the current study. COMPARISON: CT abdomen pelvis w con* [id number] 10/28/2020 11:37 AM RADIATION DOSE METRICS: Total DLP (mGy-cm): 369.8 FINDINGS: Lungs: Lung bases are clear. Liver: Diffuse high density of liver parenchyma. No focal abnormality. Normal liver size. Gallbladder and bile ducts: The gallbladder is normal. There is no biliary dilation. Pancreas: The pancreas is unremarkable. Spleen: The spleen is unremarkable. Adrenal glands: The adrenal glands are unremarkable. Kidneys and ureters: The kidneys are unremarkable. No hydronephrosis or stones. No ureteral dilation. Stomach and bowel: The stomach is decompressed, preventing meaningful evaluation of wall thickness. The small bowel is nondilated. The colon is unremarkable. Appendix: The appendix is obscured. There is no sign of inflammation in the right lower quadrant. Intraperitoneal space: There is no free air or significant intraperitoneal free fluid. Vasculature: The aorta is unremarkable. There is no aneurysm. Lymph nodes: There is no lymphadenopathy in the retroperitoneum, mesentery, pelvis or inguinal regions. Urinary bladder: The urinary bladder is decompressed, preventing meaningful evaluation of wall thickness. Reproductive: The uterus is unremarkable. There is no adnexal mass or large cyst. Bones/joints: Bones are unremarkable. Soft tissues: The abdominal wall is intact. CT/CT abdomen pelvis wo con [id number] IMPRESSION: 1. No obstructive uropathy. No stones. 2. Diffusely high density liver parenchyma suggests abnormal iron deposition. 3. Appendix is obscured.
[2023-05-16 12:29] LABS: Basophils % 0.3 %; Eosinophils # 0.1 10^3/uL (0.0-0.8); Eosinophils % 1.2 %; Hematocrit 39.5 % (37.0-47.0); Hemoglobin 13.1 g/dL (11.5-15.3); Lymphocytes # 2.6 10^3/uL (0.8-4.8); Lymphocytes % 29.5 %; Mean Corpuscular HGB Conc 33.2 g/dL (30.0-36.0); Mean Corpuscular Hemoglobin 29.5 pg (28.0-34.0); Mean Platelet Volume 9.3 fL (7.4-10.4); Monocytes # 0.6 10^3/uL (0.2-0.9); Monocytes % 6.7 %; Neutrophils # 5.51 10^3/uL (1.8-7.7); Neutrophils % 61.7 %; Nucleated Red Blood Cells % 0 %; Platelet Count 351 10^3/cmm (130-400); Red Blood Count 4.44 10^6/uL (4.1-5.3); Red Cell Distribution Width 13.7 % (12.1-15.1); White Blood Count 8.9 10^3/uL (4.0-10.0)
[2023-05-16 12:33] VITALS: BP 120/76; PULSE 98; RESP 18; O2SAT 98
[2023-05-16 12:52] LABS: HCG Qualitative Urine. Negative (Negative)
[2023-05-16 12:53] LABS: Alanine Aminotransferase 19 U/L (0-33); Albumin Level 4.3 g/dL (3.5-5.2); Alkaline Phosphatase 54 U/L (35-105); Blood Urea Nitrogen 15 mg/dL (6-20); Carbon Dioxide 22 mmol/L (22-29); Chloride 104 mmol/L (98-107); Globulin 2.7 g/dL (1.3-4.6); Glomerular Filtration Rate 118.2 mL/min (90-130); Glucose 105 mg/dL (65-115); Osmolality Calculated 287 mOsm/kg (285-295); Sodium 138 mmol/L (136-145); Total Bilirubin 0.2 mg/dL (0.15-1.2)
[2023-05-16 12:56] VITALS: BP 120/76; PULSE 97; RESP 18; O2SAT 98
[2023-05-16 12:58] LABS: Add Urine Microscopic? YES; Bilirubin Urine Neg (Negative); Blood Urine Neg (Negative); Glucose Urine UA Norm (Normal); Ketones Urine Negative (Negative); Leukocyte Esterase Urine 2+ (Negative); Nitrate Urine Negative (Negative); Protein Urine Neg (Negative); Urine Appearance SL Hazy (CLEAR); Urine Color Straw (Yellow); Urobilinogen Urine Norm (Negative); pH Urine 6 (5-7)
[2023-05-16 13:00] LABS: WBC Urine 25-40 /hpf (0-5)
[2023-05-16 13:01] LABS: Bacteria Urine 2+ /hpf; Mucus Urine 2+ /hpf; Squamous Epithelial Cell Urine 40-55 /hpf (0-5)
[2023-05-16 13:03] LABS: Add Urine Culture? No
[2023-05-16 13:12] LABS: Anion Gap 16.3 (5-19); Aspartate Amino Transferase 14 U/L (0-32); Potassium 4.3 mmol/L (3.5-5.1)
--- NOTE | 2023-05-16 13:14 | W.ED.FEMALGU ---
HPI - Female Genitourinary General: Chief complaint: Urogenital-Female Stated complaint: possible kidney stones Time Seen by Provider: 05/16/23 12:10 History of Present Illness: Patient presents to the ER by EMS from senior living with complaints of right flank pain starting this morning. Patient also was has blood in her urine. Patient denies any other changes in bowel or bladder. Patient does have a history of kidney stones with the last one being approximately 9 years ago. Patient has no other complaints at this time. Patient was given Toradol and Zofran per EMS on route. Review of Systems General: Reports: 10 or more systems reviewed and unremarkable except in HPI and below PFSH ED PFSH: Medical History Abdominal pain Carbuncle of buttock Fever Suicidal behavior with attempted self-injury Trichomonal infection Social History Smoking and tobacco status: current every day smoker Alcohol intake: former Substance/Drug Use: current Physical Exam Const: COMMON NORMALS: no acute distress, average body habitus, patient oriented x3, no limitations, healthy appearing, alert and well nourished HENMT: COMMON NORMALS: normocephalic, atraumatic, hearing grossly normal bilaterally, external ears normal, Normal external nose present and moist oral mucous membranes HEAD & SCALP: normocephalic and atraumatic NOSE: Normal external nose present EXTERNAL EAR: Yes external ears normal Neck/C-Spine: COMMON NORMALS: full ROM, no lymphadenopathy, supple, no meningeal signs, no JVD and Thyroid normal THYROID: Thyroid normal Chest: COMMONS NORMALS: normal inspection of the chest and normal palpation of entire chest wall Resp: COMMON NORMALS: normal respiratory effort, No retractions, No use of accessory muscles and clear to auscultation bilaterally AUSCULTATION: clear to auscultation bilaterally Cardio: COMMON NORMALS: no JVD, regular rate, regular rhythm, S1 normal heart sound present, S2 normal heart sound present, No gallops present (Cardio), No clicks present (Cardio), No murmurs present (Cardio) and No rub (Cardio) RATE: regular rate RHYTHM: regular rhythm HEART SOUNDS: S1 normal heart sound present and S2 normal heart sound present GI: COMMON NORMALS: Normal to inspection, nondistended, normoactive bowel sounds present, Soft to palpation, No hepatosplenomegaly present and no masses; negative for non-tender (Mildly tender right upper quadrant) PALPATION: Yes Soft to palpation and Yes No hepatosplenomegaly present Neuro: COMMON NORMALS: patient oriented x3 SENSORIUM/ORIENTATION: Yes alert MENINGEAL SIGNS: Yes no meningeal signs Course Vital Signs: Vital signs: Vital Signs Temperature 98.3 F 05/16/23 12:09 Pulse Rate 97 05/16/23 12:56 Respiratory Rate 18 05/16/23 12:56 Blood Pressure 120/76 05/16/23 12:56 Pulse Oximetry 98 05/16/23 12:56 Oxygen Delivery Me thod Room Air 05/16/23 12:56 MDM - Female Medical Decision Making Patient presents to the ER by EMS and law enforcement complaining of blood in her urine right abdominal right flank pain. Patient does have a history of a kidney stone in the past. Physical exam was performed lab work and CT was obtained which all of essentially was benign other than diffuse liver densities suggest abnormal iron deposit no stones. Urine did show 2+ leukocyte Estrace with 25-40 white blood cells however it had 40-55 squamous cells. We will go ahead and treat this urinary tract infection potentially, as it may be the source of her pain even though the specimen is contaminated. Patient will be placed on Bactrim DS and referred back to her senior living physician. Differential Diagnosis Likely calculus of kidney; Unlikely abdominal pain, acute appendicitis, constipation, diverticulitis, endometriosis, gastroenteritis, pancreatitis or small bowel obstruction Medical Records I reviewed the patient's medical records. Lab Data I reviewed the patient's lab results. 05/16/23 11:53 05/16/23 11:53 Radiology Impressions Abdomen/Pelvis CT 05/16/23 12:23 IMPRESSION: 1. No obstructive uropathy. No stones. 2. Diffusely high density liver parenchyma suggests abnormal iron deposition. 3. Appendix is obscured. Laboratory Results WBC 8.9 10^3/uL (4.0-10.0) 05/16/23 11:53 RBC 4.44 10^6/uL (4.1-5.3) 05/16/23 11:53 Hgb 13.1 g/dL (11.5-15.3) 05/16/23 11:53 Hct 39.5 % (37.0-47.0) 05/16/23 11:53 MCV 89.0 fl (81-99) 05/16/23 11:53 MCH 29.5 pg (28.0-34.0) 05/16/23 11:53 MCHC 33.2 g/dL (30.0-36.0) 05/16/23 11:53 RDW 13.7 % (12.1-15.1) 05/16/23 11:53 Plt Count 351 10^3/cmm (130-400) 05/16/23 11:53 MPV 9.3 fL (7.4-10.4) 05/16/23 11:53 Neut % (Auto) 61.7 % 05/16/23 11:53 Lymph % (Auto) 29.5 % 05/16/23 11:53 [place] % (Auto) 6.7 % 05/16/23 11:53 Eos % (Auto) 1.2 % 05/16/23 11:53 Baso % (Auto) 0.3 % 05/16/23 11:53 Neut # (Auto) 5.51 10^3/uL (1.8-7.7) 05/16/23 11:53 Lymph # (Auto) 2.6 10^3/uL (0.8-4.8) 05/16/23 11:53 [place] # (Auto) 0.6 10^3/uL (0.2-0.9) 05/16/23 11:53 Eos # (Auto) 0.1 10^3/uL (0.0-0.8) 05/16/23 11:53 Baso # (Auto) 0.0 10^3/uL (0.0-0.1) 05/16/23 11:53 Nucleated RBC % (auto) 0 % 05/16/23 11:53 Nucleated RBCs # 0.0 /100WBC 05/16/23 11:53 Sodium 138 mmol/L (136-145) 05/16/23 11:53 Potassium 4.3 mmol/L (3.5-5.1) 05/16/23 11:53 Chloride 104 mmol/L (98-107) 05/16/23 11:53 Carbon Dioxide 22 mmol/L (22-29) 05/16/23 11:53 Anion Gap 16.3 (5-19) 05/16/23 11:53 BUN 15 mg/dL (6-20) 05/16/23 11:53 Creatinine 0.6 mg/dL (0.5-0.9) 05/16/23 11:53 GFR Calculation 118.2 mL/min (90-130) 05/16/23 11:53 Glucose 105 mg/dL (65-115) 05/16/23 11:53 Calculated Osmolality 287 mOsm/kg (285-295) 05/16/23 11:53 Calcium 9.0 mg/dL (8.5-10.5) 05/16/23 11:53 Total Bilirubin 0.2 mg/dL (0.15-1.2) 05/16/23 11:53 AST 14 U/L (0-32) 05/16/23 11:53 ALT 19 U/L (0-33) 05/16/23 11:53 Alkaline Phosphatase 54 U/L (35-105) 05/16/23 11:53 Total Protein 7.0 g/dL (6.6-8.7) 05/16/23 11:53 Albumin 4.3 g/dL (3.5-5.2) 05/16/23 11:53 Globulin 2.7 g/dL (1.3-4.6) 05/16/23 11:53 HCG, Qual Negative (Negative) 05/16/23 12:41 Urine Color Straw (Yellow) 05/16/23 12:41 Urine Appearance Sl hazy (CLEAR) A 05/16/23 12:41 Urine pH 6 (5-7) 05/16/23 12:41 Ur Specific [place] 1.020 (1.005-1.030) 05/16/23 12:41 Urine Protein Neg (Negative) 05/16/23 12:41 Urine Glucose (UA) Norm (Normal) 05/16/23 12:41 Urine Ketones Negative (Negative) 05/16/23 12:41 Urine Blood Neg (Negative) 05/16/23 12:41 Urine Nitrate Negative (Negative) 05/16/23 12:41 Urine Bilirubin Neg (Negative) 05/16/23 12:41 Urine Urobilinogen Norm mg/dL (Negative) 05/16/23 12:41 Ur Leukocyte Esterase 2+ (Negative) H 05/16/23 12:41 Urine RBC None /hpf (0-2) 05/16/23 12:41 Urine WBC 25-40 /hpf (0-5) H 05/16/23 12:41 Ur Squamous Epith Cells 40-55 /hpf (0-5) H 05/16/23 12:41 Ur Transition Epith Cell 10-15 /hpf 05/16/23 12:41 Amorphous Sediment Not Reportable 05/16/23 12:41 Urine Bacteria 2+ /hpf (NONE) H 05/16/23 12:41 Urine Mucus 2+ /hpf 05/16/23 12:41 Discharge Plan Discharge Patient Disposition: Home Clinical Impression: Urinary tract infection Qualifiers: Urinary tract infection type: acute cystitis Hematuria presence: with hematuria Qualified Code(s): N30.01 - Acute cystitis with hematuria Abdominal pain Qualifiers: Abdominal location: unspecified location Qualified Code(s): R10.9 - Unspecified abdominal pain Condition: Stable Prescriptions: New sulfamethoxazole-trimethoprim [Bactrim DS] 800-160 mg tablet 1 tab PO BID Qty: 14 0RF No Action aripiprazole [Abilify] 5 mg tablet 5 mg PO DAILY Qty: 30 0RF Discharge Orders: Discharge ED (Routine); Ordered 05/16/23 Ordered By: Nii Leong Patient Instructions: Abdominal Pain (ED), Urinary Tract Infection - Women Activity Restrictions/Additional Instructions: Please take all medicine as prescribed. Please push plenty of fluids. Please follow-up with physician in approximately 7 days or sooner as needed for further evaluation and treatment. Coding Level of Care Code ED Furnace Mason for Brian Harvey
[2023-05-16 14:05] VITALS: BP 120/76; PULSE 90; RESP 15; O2SAT 100
== END 2023-05-16 14:06 | disposition home or self-care (01) ==
PROVIDERS: Emergency Provider Emergency Medicine
DX: N30.01 Acute cystitis with hematuria (principal); F17.210 Nicotine dependence, cigarettes, uncomplicated
CPT/HCPCS: 74176; 80053; 81001; 81025; 85025; 99284

== ENCOUNTER 2023-05-19 13:25 | Emergency (ER) | payer MEDICAID, SELFPAY ==
[2023-05-19 13:53] VITALS: BP 117/82; PULSE 102; RESP 18; TEMP 36.8; O2SAT 99
--- NOTE | 2023-05-19 14:04 | XRR_ITS ---
PROCEDURE INFORMATION: Exam: XR Complete Acute Abdomen Series Including Chest Exam date and time: 05/19/2023 2:10 PM Age: 27 years old Clinical indication: Abdominal pain; Localized; Lower; Prior surgery; Surgery date: 6+ months; Surgery type: C section x 3; Patient HX: Patient has blood in stool; Additional info: Rectal bleeding with lower abdominal pain TECHNIQUE: Imaging protocol: Radiologic exam. Complete acute abdomen series, including 2 or more views of the abdomen and a single view chest. COMPARISON: CT abdomen pelvis wo con [id number] 05/16/2023 12:57 PM FINDINGS: Lungs: Normal. No consolidation. Pleural spaces: Normal. No pleural effusions. No pneumothorax. Heart/Mediastinum: Normal. No cardiomegaly. Gastrointestinal tract: [id number] fecal burden. No bowel dilation. Intraperitoneal space: Normal. No free air. Bones/joints: Normal. No acute fracture. Soft tissues: Normal. XR/XR acute abdomen series [id number] IMPRESSION: No acute findings.
--- NOTE | 2023-05-19 14:10 | ED_ITS ---
HPI - GI Bleed General: Chief complaint: GI Bleed Stated complaint: blood in stool Time Seen by Provider: 05/19/23 13:54 History of Present Illness: 27-year-old female presents emergency department chief complaint of rectal bleeding that started prior to arrival patient presents from the senior living patient reports to started on Bactrim for underlying urinary tract infection with possible kidney stone she was just here couple of days ago for this matter. [facility] ED PFSH: Medical History Abdominal pain Carbuncle of buttock Fever Suicidal behavior with attempted self-injury Trichomonal infection Social History Smoking and tobacco status: current every day smoker Alcohol intake: former Substance/Drug Use: current Course Vital Signs: Vital signs: Vital Signs Temperature 98.2 F 05/19/23 13:53 Pulse Rate 102 H 05/19/23 13:53 Respiratory Rate 18 05/19/23 13:53 Blood Pressure 117/82 05/19/23 13:53 Pulse Oximetry 99 05/19/23 13:53 Oxygen Delivery Me thod Room Air 05/19/23 13:53 MDM - GI Bleed Medical Decision Making Patient is lab work and imaging came back unremarkable. Rectal exam did not reveal a Hemoccult positive blood lab work came back reassuring with a negative acute abdominal series patient be subcu discharged back to senior living under the cust talat of law enforcement advised drink lots of water reduce likelihood of dehydration advised to return the interim if any of her symptoms persist or worse. Lab Data 05/19/23 14:42 05/19/23 14:42 Radiology Impressions Chest/Abdomen X-ray 05/19/23 14:04 IMPRESSION: No acute findings. Laboratory Results WBC 7.9 10^3/uL (4.0-10.0) 05/19/23 14:42 RBC 3.95 10^6/uL (4.1-5.3) L 05/19/23 14:42 Hgb 11.9 g/dL (11.5-15.3) 05/19/23 14:42 Hct 36.5 % (37.0-47.0) L 05/19/23 14:42 MCV 92.4 fl (81-99) 05/19/23 14:42 MCH 30.1 pg (28.0-34.0) 05/19/23 14:42 MCHC 32.6 g/dL (30.0-36.0) 05/19/23 14:42 RDW 14.1 % (12.1-15.1) 05/19/23 14:42 Plt Count 268 10^3/cmm (130-400) 05/19/23 14:42 MPV 9.5 fL (7.4-10.4) 05/19/23 14:42 Neut % (Auto) 62.9 % 05/19/23 14:42 Lymph % (Auto) 28.8 % 05/19/23 14:42 [place] % (Auto) 6.1 % 05/19/23 14:42 Eos % (Auto) 1.3 % 05/19/23 14:42 Baso % (Auto) 0.4 % 05/19/23 14:42 Neut # (Auto) 4.99 10^3/uL (1.8-7.7) 05/19/23 14:42 Lymph # (Auto) 2.3 10^3/uL (0.8-4.8) 05/19/23 14:42 [place] # (Auto) 0.5 10^3/uL (0.2-0.9) 05/19/23 14:42 Eos # (Auto) 0.1 10^3/uL (0.0-0.8) 05/19/23 14:42 Baso # (Auto) 0.0 10^3/uL (0.0-0.1) 05/19/23 14:42 Nucleated RBC % (auto) 0 % 05/19/23 14:42 Nucleated RBCs # 0.0 /100WBC 05/19/23 14:42 Sodium 138 mmol/L (136-145) 05/19/23 14:42 Potassium 3.8 mmol/L (3.5-5.1) 05/19/23 14:42 Chloride 105 mmol/L (98-107) 05/19/23 14:42 Carbon Dioxide 23 mmol/L (22-29) 05/19/23 14:42 Anion Gap 13.8 (5-19) 05/19/23 14:42 BUN 16 mg/dL (6-20) 05/19/23 14:42 Creatinine 0.6 mg/dL (0.5-0.9) 05/19/23 14:42 GFR Calculation 118.2 mL/min (90-130) 05/19/23 14:42 Glucose 97 mg/dL (65-115) 05/19/23 14:42 Calculated Osmolality 287 mOsm/kg (285-295) 05/19/23 14:42 Calcium 8.9 mg/dL (8.5-10.5) 05/19/23 14:42 Total Bilirubin 0.2 mg/dL (0.15-1.2) 05/19/23 14:42 AST 14 U/L (0-32) 05/19/23 14:42 ALT 17 U/L (0-33) 05/19/23 14:42 Alkaline Phosphatase 49 U/L (35-105) 05/19/23 14:42 C-Reactive Protein 3.0 mg/L (0.0-4.9) 05/19/23 14:42 Total Protein 6.5 g/dL (6.6-8.7) L 05/19/23 14:42 Albumin 4.0 g/dL (3.5-5.2) 05/19/23 14:42 Globulin 2.5 g/dL (1.3-4.6) 05/19/23 14:42 Urine Color Yellow (Yellow) 05/19/23 14:07 Urine Appearance Cloudy (CLEAR) A 05/19/23 14:07 Urine pH 7 (5-7) 05/19/23 14:07 Ur Specific [place] 1.015 (1.005-1.030) 05/19/23 14:07 Urine Protein Neg (Negative) 05/19/23 14:07 Urine Glucose (UA) Norm (Normal) 05/19/23 14:07 Urine Ketones Negative (Negative) 05/19/23 14:07 Urine Blood Neg (Negative) 05/19/23 14:07 Urine Nitrate Negative (Negative) 05/19/23 14:07 Urine Bilirubin Neg (Negative) 05/19/23 14:07 Urine Urobilinogen Norm mg/dL (Negative) 05/19/23 14:07 Ur Leukocyte Esterase 2+ (Negative) H 05/19/23 14:07 Urine RBC 0-4 /hpf (0-2) H 05/19/23 14:07 Urine WBC 5-10 /hpf (0-5) H 05/19/23 14:07 Ur Squamous Epith Cells 5-10 /hpf (0-5) H 05/19/23 14:07 Amorphous Sediment 3+ /hpf 05/19/23 14:07 Urine Bacteria Trace /hpf (NONE) 05/19/23 14:07 Urine Mucus 2+ /hpf 05/19/23 14:07 Urine Opiates Screen Negative ng/mL (Negative) 05/19/23 14:07 Ur Barbiturates Screen Negative ng/mL (Negative) 05/19/23 14:07 Ur Phencyclidine Scrn Negative ng/mL (Negative) 05/19/23 14:07 Ur Amphetamines Screen Negative ng/mL (Negative) 05/19/23 14:07 U Benzodiazepines Scrn Negative ng/mL (Negative) 05/19/23 14:07 Urine Cocaine Screen Negative ng/mL (Negative) 05/19/23 14:07 U Marijuana (THC) Screen Negative ng/mL (Negative) 05/19/23 14:07 Discharge Plan Discharge Patient Disposition: Home Clinical Impression: Rectal bleeding Condition: Stable Prescriptions: No Action aripiprazole [Abilify] 5 mg tablet 5 mg PO DAILY Qty: 30 0RF Bactrim DS 800-160 mg tablet 1 tab PO BID Qty: 14 0RF Discharge Orders: Discharge ED (Routine); Ordered 05/19/23 Ordered By: Stefan Gonsalez Discharge Diet: Advance as tolerated Discharge Activity: Resume usual activity Patient Instructions: Rectal Bleeding (ED) Activity Restrictions/Additional Instructions: Please drink lots of water and eat softer foods to reduce likelihood of constipa tion that can contribute to rectal bleeding and or rectal hemorrhoids, please return the interim if any of your symptoms persist or worsen please continue taking antibiotics as already prescribed. Coding Level of Care Code ED Oracle Database Analyst for Brian Harvey
[2023-05-19 14:24] LABS: Bilirubin Urine Neg (Negative); Blood Urine Neg (Negative); Glucose Urine UA Norm (Normal); Ketones Urine Negative (Negative); Leukocyte Esterase Urine 2+ (Negative); Nitrate Urine Negative (Negative); Protein Urine Neg (Negative); Specific Gravity, Urine 1.015 (1.005-1.030); Urine Appearance Cloudy (CLEAR); Urine Color Yellow (Yellow); Urobilinogen Urine Norm (Negative); pH Urine 7 (5-7)
[2023-05-19 14:25] LABS: Add Urine Microscopic? YES
[2023-05-19 14:33] LABS: Add Urine Culture? No; Amorphous Sediment Urine 3+ /hpf; Bacteria Urine TRACE /hpf; Mucus Urine 2+ /hpf; RBC Urine 0-4 /hpf (0-2)
[2023-05-19 14:54] LABS: Basophils % 0.4 %; Eosinophils # 0.1 10^3/uL (0.0-0.8); Eosinophils % 1.3 %; Hematocrit 36.5 % (37.0-47.0); Hemoglobin 11.9 g/dL (11.5-15.3); Lymphocytes # 2.3 10^3/uL (0.8-4.8); Lymphocytes % 28.8 %; Mean Corpuscular HGB Conc 32.6 g/dL (30.0-36.0); Mean Corpuscular Hemoglobin 30.1 pg (28.0-34.0); Mean Corpuscular Volume 92.4 fl (81-99); Mean Platelet Volume 9.5 fL (7.4-10.4); Monocytes # 0.5 10^3/uL (0.2-0.9); Monocytes % 6.1 %; Neutrophils # 4.99 10^3/uL (1.8-7.7); Neutrophils % 62.9 %; Nucleated Red Blood Cells % 0 %; Platelet Count 268 10^3/cmm (130-400); Red Blood Count 3.95 10^6/uL (4.1-5.3); Red Cell Distribution Width 14.1 % (12.1-15.1); White Blood Count 7.9 10^3/uL (4.0-10.0)
[2023-05-19 15:28] LABS: Alanine Aminotransferase 17 U/L (0-33); Alkaline Phosphatase 49 U/L (35-105); Blood Urea Nitrogen 16 mg/dL (6-20); Calcium 8.9 mg/dL (8.5-10.5); Carbon Dioxide 23 mmol/L (22-29); Chloride 105 mmol/L (98-107); Globulin 2.5 g/dL (1.3-4.6); Glomerular Filtration Rate 118.2 mL/min (90-130); Glucose 97 mg/dL (65-115); Osmolality Calculated 287 mOsm/kg (285-295); Sodium 138 mmol/L (136-145); Total Bilirubin 0.2 mg/dL (0.15-1.2); Total Protein 6.5 g/dL (6.6-8.7)
[2023-05-19 15:33] LABS: Anion Gap 13.8 (5-19); Aspartate Amino Transferase 14 U/L (0-32); Potassium 3.8 mmol/L (3.5-5.1)
[2023-05-19 16:01] LABS: Amphetamines Screen Urine Negative (Negative); Barbiturates Screen Urine Negative (Negative); Benzodiazepines Screen Urine Negative (Negative); Cocaine Screen Urine Negative (Negative); Opiate Screen Urine Negative (Negative); PCP Screen Urine Negative (Negative); THC Screen Urine Negative (Negative)
[2023-05-19 16:27] VITALS: BP 117/82; PULSE 102; O2SAT 99
== END 2023-05-19 16:49 | disposition home or self-care (01) ==
PROVIDERS: Emergency Provider Emergency Medicine
DX: K62.5 Hemorrhage of anus and rectum (principal); Z79.899 Other long term (current) drug therapy
CPT/HCPCS: 36415; 74022; 80053; 80306; 81001; 85025; 86140; 99284

== ENCOUNTER 2023-06-10 03:56 | Emergency (ER) | payer MEDICAID, SELFPAY ==
[2023-06-10 04:10] VITALS: BP 128/84; PULSE 100; RESP 16; O2SAT 100
--- NOTE | 2023-06-10 04:10 | W.ED.GENADLT ---
[facility] - General Adult General: Stated complaint: Bite by Spider Time Seen by Provider: 06/10/23 03:59 Source: patient Mode of arrival: ambulatory Limitations: no limitations History of Present Illness: 18-year-old female states she has been having erythema with multiple insect bites to lower legs states she has 1 area to the left lower thigh that had some drainage she denies any fever denies any vomiting. Patient does admit to methamphetamine abuse Associated symptoms: Deny chest pain, dyspnea, headache(s), nausea, rash or vomiting Review of Systems Const: Denies: fever(s), chills, body aches or change in appetite ENMT: Denies: throat pain or dental pain Card: Denies: chest pain Resp: Denies: dyspnea GI: Denies: abdominal pain, nausea, vomiting or diarrhea Musc: Denies: neck pain or back pain Skin/Breast: Reports: erythema; Denies: rash Neuro: Denies: headache(s) PFSH ED PFSH: Medical History Abdominal pain Carbuncle of buttock Fever Suicidal behavior with attempted self-injury Trichomonal infection Social History Smoking and tobacco status: current every day smoker Alcohol intake: former Substance/Drug Use: current Physical Exam Const: COMMON NORMALS: no acute distress, patient oriented x3 and healthy appearing HENMT: COMMON NORMALS: normocephalic and atraumatic HEAD & SCALP: normocephalic and atraumatic Neck/C-Spine: COMMON NORMALS: full ROM and supple Chest: COMMONS NORMALS: normal inspection of the chest Resp: COMMON NORMALS: normal respiratory effort Cardio: COMMON NORMALS: regular rate, regular rhythm and No murmurs present (Cardio) RATE: regular rate RHYTHM: regular rhythm GI: INSPECTION: Yes normal to inspection Extremity: COMMON NORMALS: full ROM Neuro: COMMON NORMALS: patient oriented x3, moves all extremities and no focal motor deficits Psych: COMMON NORMALS: mental status grossly normal, Normal thought process present and cooperative THOUGHT PROCESS: Normal thought process present Skin: NARRATIVE SKIN EXAM: Insect bites to lower extremities has cellulitis to left lower thigh roughly 2 cm in diameter open sore with no drainage at this time slight erythema [facility] - General Adult Medical Decision Making Patient presents here with insect bites to her lower extremities she does have cellulitis 1 on her left lower thigh is open and draining no sign of abscess at this time we will place her on Bactrim she is to follow-up PCP and return if worsening Medical Records I reviewed the patient's medical records. Discharge Plan Discharge Patient Disposition: Home Clinical Impression: Insect bite, Cellulitis Condition: Stable Prescriptions: New sulfamethoxazole-trimethoprim [Bactrim DS] 800-160 mg tablet 1 tab PO BID 10 Days Qty: 20 0RF No Action aripiprazole [Abilify] 5 mg tablet 5 mg PO DAILY Qty: 30 0RF Bactrim DS 800-160 mg tablet 1 tab PO BID Qty: 14 0RF Discharge Orders: Discharge ED (Routine); Ordered 06/10/23 Ordered By: Emily Goldman Discharge Diet: Advance as tolerated Discharge Activity: Resume usual activity Patient Instructions: Cellulitis (ED) Coding Level of Care Code ED Elocution Teacher for Brian Harvey
[2023-06-10] MEDS: sulfamethoxazole-trimeth DS 160-800 mg Tablet 1 TAB PO (04:12)
[2023-06-10 04:17] VITALS: BP 129/84; PULSE 105; RESP 18; O2SAT 98
== END 2023-06-10 04:19 | disposition home or self-care (01) ==
PROVIDERS: Emergency Provider Emergency Medicine
DX: S80.862A Insect bite (nonvenomous), left lower leg, initial encounter (principal); S80.861A Insect bite (nonvenomous), right lower leg, initial encounter; W57.XXXA Bitten or stung by nonvenomous insect and other nonvenomous arthropods, initial encounter; L03.116 Cellulitis of left lower limb; F17.210 Nicotine dependence, cigarettes, uncomplicated
CPT/HCPCS: 99284

== ENCOUNTER 2023-08-20 11:05 | Emergency (ER) | payer MEDICAID, SELFPAY ==
--- NOTE | 2023-08-20 11:26 | W.ED.GENADLT ---
HPI - General Adult General: Chief complaint: Vaginal Bleeding Stated complaint: vaginal bleeding Time Seen by Provider: 08/20/23 11:09 Source: patient Mode of arrival: ambulatory History of Present Illness: 19-year-old female presents emergency room in custody [facility]. She is currently incarcerated states started on vaginal bleeding today she states that she is she has not seen an OB yet. She had a home test that was positive about 1 to 2 weeks ago. She is intermittently having some bleeding no lightheadedness dizziness vital signs are stable. Onset (ago): minute(s) Severity: mild Associated symptoms: Reports nausea; Deny chest pain, confusion, cough, diaphoresis, decreased appetite, dyspnea, fevers/chills, headache(s), malaise, rash, palpitations, seizures, short of breath, syncope, vomiting or weakness Treatments prior to arrival: none Review of Systems Const: Denies: fever(s), chills, malaise or diaphoresis Card: Denies: chest pain, palpitations or syncope Resp: Denies: dyspnea GI: Reports: nausea; Denies: abdominal pain or vomiting : Reports: flank pain; Denies: dysuria, urinary frequency or urinary urgency Musc: Denies: neck pain or back pain Skin/Breast: Denies: rash Neuro: Denies: headache(s) or confusion PFSH ED PFSH: Medical History Abdominal pain Carbuncle of buttock Fever Suicidal behavior with attempted self-injury Trichomonal infection Social History Smoking and tobacco/nicotine status: current every day tobacco/nicotine user Alcohol intake: former Substance/Drug Use: current Physical Exam Const: GENERAL APPEARANCE: cooperative and comfortable ORIENTATION/CONSCIOUSNESS: Yes awake, Yes oriented to person, Yes oriented to place and Yes oriented to time HENMT: COMMON NORMALS: normocephalic, atraumatic and hearing grossly normal bilaterally HEAD & SCALP: normocephalic and atraumatic Resp: COMMON NORMALS: normal respiratory effort, No retractions, No use of accessory muscles and clear to auscultation bilaterally AUSCULTATION: clear to auscultation bilaterally Cardio: COMMON NORMALS: regular rate, regular rhythm and No murmurs present (Cardio) RATE: regular rate RHYTHM: regular rhythm GI: COMMON NORMALS: Soft to palpation and No hepatosplenomegaly present AUSCULTATION: Yes normoactive bowel sounds PALPATION: Yes Soft to palpation, No Tenderness to palpation present (GI), No Guarding due to palpation present (GI) and Yes No hepatosplenomegaly present Extremity: COMMON NORMALS: normal to inspection, capillary refill normal, no clubbing, cyanosis or edema, no calf tenderness and no pedal edema Neuro: SENSORIUM/ORIENTATION: Yes oriented to person, Yes oriented to place and Yes oriented to time Skin: COMMON NORMALS: no rashes or lesions noted GENERAL SKIN EXAM: no rashes or lesions noted Course Vital Signs: Vital signs: Vital Signs Temperature 98.3 F 08/20/23 11: Pulse Rate 88 08/20/23 11:29 Respiratory Rate 18 08/20/23 11:29 Blood Pressure 114/69 08/20/23 11:29 Pulse Oximetry 96 08/20/23 11:29 Oxygen Delivery Me thod Room Air 08/20/23 11:29 MDM - General Adult Medical Decision Making Patient states approximately 10 days ago she had a positive test on a home test. Her serum quantitative beta-hCG is undetectable at this time. Most likely scenario is that patient missed read the home test and was not . Another possibility would be that she was already miscarrying and the beta-hCG has returned to 0 in the last 10 days although that seems quite unlikely usually there is at least some detectable beta-hCG on serum in this timeframe. Reviewed findings with the patient use Tylenol or ibuprofen for menstrual cramping. Medical Records I reviewed the patient's medical records. Lab Data I reviewed the patient's lab results. 08/20/23 11:27 08/20/23 11:27 Laboratory Results WBC 8.01 10^3/uL (3.29-11.43) 08/20/23 11: RBC 4.53 10^6/uL (3.85-5.65) 08/20/23 11: Hgb 13.10 g/dL (11.27-16.99) 08/20/23 11: Hct 41.4 % (36-47) 08/20/23 11: MCV 91.4 fl (85-98) 08/20/23 11:27 MCH 28.9 pg (27-33) 08/20/23 11:27 MCHC 31.6 g/dL (30-55) 08/20/23 11:27 RDW 12.9 % (12.1-15.1) 08/20/23 11:27 Plt Count 328 10^3/cmm (157-399) 08/20/23 11:27 MPV 9.0 fL (7.4-10.4) 08/20/23 11:27 Neut % (Auto) 71.4 % 08/20/23 11:27 Lymph % (Auto) 21.6 % 08/20/23 11:27 [place] % (Auto) 5.4 % 08/20/23 11:27 Eos % (Auto) 0.7 % 08/20/23 11:27 Baso % (Auto) 0.5 % 08/20/23 11:27 Neut # (Auto) 5.72 10^3/uL (1.8-7.7) 08/20/23 11:27 Lymph # (Auto) 1.7 10^3/uL (0.8-4.8) 08/20/23 11:27 [place] # (Auto) 0.4 10^3/uL (0.2-0.9) 08/20/23 11:27 Eos # (Auto) 0.1 10^3/uL (0.0-0.8) 08/20/23 11:27 Baso # (Auto) 0.0 10^3/uL (0.0-0.1) 08/20/23 11:27 Nucleated RBC % (auto) 0 % 08/20/23 11:27 Nucleated RBCs # 0.0 /100WBC 08/20/23 11:27 Sodium 138 mmol/L (136-145) 08/20/23 11:27 Potassium 4.2 mmol/L (3.5-5.1) 08/20/23 11:27 Chloride 104 mmol/L (98-107) 08/20/23 11:27 Carbon Dioxide 25 mmol/L (22-29) 08/20/23 11:27 Anion Gap 13.2 (5-19) 08/20/23 11:27 BUN 11 mg/dL (6-20) 08/20/23 11:27 Creatinine 0.5 mg/dL (0.5-0.9) 08/20/23 11:27 GFR Calculation 145.9 mL/min (90-130) H 08/20/23 11:27 Glucose 88 mg/dL (65-115) 08/20/23 11:27 Calculated Osmolality 285 mOsm/kg (285-295) 08/20/23 11:27 Calcium 9.3 mg/dL (8.5-10.5) 08/20/23 11:27 HCG, Qual Negative (Negative) 08/20/23 11:27 No radiology studies performed this visit Discharge Plan Discharge Patient Disposition: Home Clinical Impression: Menometrorrhagia Condition: Stable Prescriptions: No Action No Known Home Medications Discharge Orders: Discharge ED (Routine); Ordered 08/20/23 Ordered By: Saran Fountain Discharge Diet: Usual diet Discharge Activity: Resume usual activity Patient Instructions: Opioid Safety, Pain Management Activity Restrictions/Additional Instructions: Thank you for choosing [facility] for your healthcare needs today. Please realize this is an emergency room and that we are providing you with a medical screening exam and this may not be complete and all inclusive of all the testing and or work up that you may need to determine your ailment or severity of your illness. It is very important that you follow up as instructed or that you return to the Emergency Department should you have concerns or if your condition changes or worsens in any way. Serum quantitative beta-hCG was undetectable on blood work done for today. Your hemoglobin is stable. Suspect the bleeding you are having now is menstrual bleeding. In some cases of anovulatory cycles subsequent bleeding can be irregular and have increased cramping associated with it. Follow-up with your primary care doctor. Coding Level of Care Code ED Steward/Stewardess Second Class for Brian Harvey
[2023-08-20 11:29] VITALS: BP 114/69; PULSE 88; RESP 18; TEMP 36.8; O2SAT 96; BMI 21.9
[2023-08-20 11:38] LABS: Basophils % 0.5 %; Eosinophils # 0.1 10^3/uL (0.0-0.8); Eosinophils % 0.7 %; Hematocrit 41.4 % (36-47); Lymphocytes # 1.7 10^3/uL (0.8-4.8); Lymphocytes % 21.6 %; Mean Corpuscular HGB Conc 31.6 g/dL (30-55); Mean Corpuscular Hemoglobin 28.9 pg (27-33); Mean Corpuscular Volume 91.4 fl (85-98); Monocytes # 0.4 10^3/uL (0.2-0.9); Monocytes % 5.4 %; Neutrophils # 5.72 10^3/uL (1.8-7.7); Neutrophils % 71.4 %; Nucleated Red Blood Cells % 0 %; Platelet Count 328 10^3/cmm (157-399); Red Blood Count 4.53 10^6/uL (3.85-5.65); Red Cell Distribution Width 12.9 % (12.1-15.1); White Blood Count 8.01 10^3/uL (3.29-11.43)
[2023-08-20 11:55] LABS: HCG, Serum Qual Negative (Negative)
[2023-08-20 11:58] LABS: Anion Gap 13.2 (5-19); Blood Urea Nitrogen 11 mg/dL (6-20); Calcium 9.3 mg/dL (8.5-10.5); Carbon Dioxide 25 mmol/L (22-29); Chloride 104 mmol/L (98-107); Glomerular Filtration Rate 145.9 mL/min (90-130); Glucose 88 mg/dL (65-115); Osmolality Calculated 285 mOsm/kg (285-295); Potassium 4.2 mmol/L (3.5-5.1); Sodium 138 mmol/L (136-145)
[2023-08-20 12:21] LABS: Add Urine Microscopic? YES; Bilirubin Urine Neg (Negative); Blood Urine 3+ (Negative); Glucose Urine UA Norm (Normal); Ketones Urine Negative (Negative); Leukocyte Esterase Urine Negative (Negative); Nitrate Urine Negative (Negative); Protein Urine Neg (Negative); Specific Gravity, Urine 1.015 (1.005-1.030); Squamous Epithelial Cell Urine 0-4 /hpf (0-5); Sulfosalicylic Acid Urine Negative (Negative); Urine Appearance Clear (CLEAR); Urine Color Yellow (Yellow); Urobilinogen Urine Norm (Negative); WBC Urine 0-4 /hpf (0-5); pH Urine 9 (5-7)
[2023-08-20 12:22] LABS: Add Urine Culture? No; Amorphous Sediment Urine 1+ /hpf; Bacteria Urine TRACE /hpf; Mucus Urine TRACE /hpf
== END 2023-08-20 12:34 | disposition home or self-care (01) ==
PROVIDERS: Emergency Provider Family Medicine
DX: N92.1 Excessive and frequent menstruation with irregular cycle (principal); Z72.0 Tobacco use
CPT/HCPCS: 36415; 80048; 81001; 84703; 85025; 99283

== ENCOUNTER 2023-08-23 08:46 | Emergency (ER) | payer MEDICAID, SELFPAY ==
[2023-08-23 08:56] VITALS: BP 117/76; PULSE 92; RESP 16; TEMP 37.1; O2SAT 100; BMI 21.9
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
[2023-08-23 09:34] LABS: Basophils % 0.4 %; Eosinophils # 0.1 10^3/uL (0.0-0.8); Hematocrit 38.2 % (36-47); Lymphocytes # 1.6 10^3/uL (0.8-4.8); Lymphocytes % 22.6 %; Mean Corpuscular HGB Conc 32.2 g/dL (30-55); Mean Corpuscular Volume 90.1 fl (85-98); Mean Platelet Volume 8.8 fL (7.4-10.4); Monocytes # 0.4 10^3/uL (0.2-0.9); Monocytes % 5.4 %; Neutrophils # 4.91 10^3/uL (1.8-7.7); Nucleated Red Blood Cells % 0 %; Platelet Count 299 10^3/cmm (157-399); Red Blood Count 4.24 10^6/uL (3.85-5.65); Red Cell Distribution Width 12.9 % (12.1-15.1); White Blood Count 7.02 10^3/uL (3.29-11.43)
[2023-08-23 09:51] LABS: Alanine Aminotransferase 13 U/L (0-33); Alkaline Phosphatase 43 U/L (35-105); Aspartate Amino Transferase 10 U/L (0-32); Blood Urea Nitrogen 16 mg/dL (6-20); Calcium 8.9 mg/dL (8.5-10.5); Carbon Dioxide 24 mmol/L (22-29); Chloride 105 mmol/L (98-107); Globulin 2.2 g/dL (1.3-4.6); Glomerular Filtration Rate 98.9 mL/min (90-130); Glucose 118 mg/dL (65-115); Osmolality Calculated 292 mOsm/kg (285-295); Sodium 140 mmol/L (136-145); Total Bilirubin 0.2 mg/dL (0.15-1.2); Total Protein 6.2 g/dL (6.6-8.7)
[2023-08-23 10:04] LABS: Bilirubin Urine Neg (Negative); Blood Urine 3+ (Negative); Glucose Urine UA Norm (Normal); Ketones Urine Negative (Negative); Leukocyte Esterase Urine Negative (Negative); Nitrate Urine Negative (Negative); Protein Urine Neg (Negative); Specific Gravity, Urine 1.015 (1.005-1.030); Urine Appearance Cloudy (CLEAR); Urine Color Yellow (Yellow); Urobilinogen Urine Norm (Negative); pH Urine 7 (5-7)
[2023-08-23 10:05] LABS: Add Urine Microscopic? YES
[2023-08-23 10:25] LABS: Add Urine Culture? No; Amorphous Sediment Urine 1+ /hpf; Bacteria Urine TRACE /hpf; Squamous Epithelial Cell Urine 0-4 /hpf (0-5); WBC Urine 0-4 /hpf (0-5)
== END 2023-08-23 10:23 | disposition home or self-care (01) ==
PROVIDERS: Emergency Provider Physician Assistant
DX: R45.851 Suicidal ideations (principal); F51.5 Nightmare disorder; Z72.0 Tobacco use
CPT/HCPCS: 80053; 81001; 85025; 99283

== ENCOUNTER 2023-09-13 01:37 | Inpatient (IN) | payer MEDICAID, SELFPAY ==
[2023-09-13 01:45] VITALS: BMI 21.9
--- NOTE | 2023-09-13 02:08 | W.ED.PSYCHS ---
HPI - Psych General: Chief Complaint: Psychiatric Symptoms Stated Complaint: very depressed [facility] Time Seen by Provider: 09/13/23 02:00 Source: patient Mode of arrival: ambulatory Limitations: no limitations History of Present Illness: 27-year-old female who is well-known to the ER she states she been having severe panic attack over the last 6 hours along with suicidal thoughts. States she is severely depressed and no longer wants to live anymore. Patient is hysterical in the room and crying and yelling. Denies any worsening proving factors. Associated symptoms: Reports depression and suicidal ideation Review of Systems Const: Denies: fever(s), chills, body aches or change in appetite Eyes: Denies: blurry vision or eye discomfort ENMT: Denies: throat pain or dental pain Card: Denies: chest pain Resp: Denies: dyspnea GI: Denies: abdominal pain, nausea, vomiting or diarrhea Musc: Denies: neck pain or back pain Skin/Breast: Denies: rash Neuro: Denies: headache(s) Psych: Reports: anxiety, depression and suicidal ideation [facility], [facility] PFSH: Medical History Abdominal pain Carbuncle of buttock Fever Suicidal behavior with attempted self-injury Trichomonal infection Social History Smoking and tobacco/nicotine status: current every day tobacco/nicotine user Alcohol intake: former Substance/Drug Use: current Female Reproductive History: Date of last menstrual period: 08/25/23 Physical Exam Const: COMMON NORMALS: patient oriented x3 and healthy appearing GENERAL APPEARANCE: anxious HENMT: COMMON NORMALS: normocephalic and atraumatic HEAD & SCALP: normocephalic and atraumatic Eye: COMMON NORMALS: Equal, round and reactive pupils present and EOMs intact bilaterally PUPIL: Yes Equal, round and reactive pupils present Neck/C-Spine: COMMON NORMALS: full ROM and supple Chest: COMMONS NORMALS: normal inspection of the chest and normal palpation of entire chest wall Resp: COMMON NORMALS: normal respiratory effort, No retractions, No use of accessory muscles and clear to auscultation bilaterally AUSCULTATION: clear to auscultation bilaterally Cardio: COMMON NORMALS: regular rate, regular rhythm and No murmurs present (Cardio) RATE: regular rate RHYTHM: regular rhythm GI: COMMON NORMALS: Normal to inspection, nondistended, normoactive bowel sounds present, Soft to palpation, non-tender and no masses PALPATION: Yes Soft to palpation Extremity: COMMON NORMALS: normal to inspection and full ROM Neuro: COMMON NORMALS: patient oriented x3, moves all extremities and no focal motor deficits Psych: COMMON NORMALS: mental status grossly normal and cooperative MOOD & AFFECT: Yes depressed mood and Yes anxious THOUGHT CONTENT: Yes Suicidality present Skin: COMMON NORMALS: no rashes or lesions noted and no wounds GENERAL SKIN EXAM: no rashes or lesions noted Course Vital Signs: Vital signs: Vital Signs Temperature 97.9 F 09/13/23 02:10 Pulse Rate 117 H 09/13/23 02:10 Respiratory Rate 20 H 09/13/23 02:10 Blood Pressure 140/117 09/13/23 02:10 Pulse Oximetry 100 09/13/23 02:10 Oxygen Delivery Me thod Room Air 09/13/23 02:10 MDM - Psych Medical Decision Making Patient presents here with suicidal ideations patient is medically cleared here I spoke to psychiatrist and will admit at this time. Lab Data 09/13/23 02:25 09/13/23 02:25 No radiology studies performed this visit Discharge Plan Discharge Patient Disposition: Admitted As Inpatient Admit Provider: Rodrigue Solorio Clinical Impression: Suicidal ideation, Acute anxiety Condition: Stable Coding Level of Care Code ED [employer] for [employer]
[2023-09-13 02:10] VITALS: BP 140/117; PULSE 117; RESP 20; TEMP 36.6; O2SAT 100
[2023-09-13] MEDS: LORazepam 2 mg/mL INJ 1 mL IM (02:29)
[2023-09-13] MEDS: haloperidol inj 5 mg/mL INJ 1 mL IM (02:29)
[2023-09-13 02:48] VITALS: BP 128/88; PULSE 117; RESP 20; O2SAT 98
[2023-09-13 02:49] LABS: Alanine Aminotransferase 23 U/L (0-33); Albumin Level 4.5 g/dL (3.5-5.2); Alkaline Phosphatase 60 U/L (35-105); Anion Gap 15.5 (5-19); Aspartate Amino Transferase 18 U/L (0-32); Blood Urea Nitrogen 17 mg/dL (6-20); Calcium 9.2 mg/dL (8.5-10.5); Carbon Dioxide 25 mmol/L (22-29); Chloride 103 mmol/L (98-107); Globulin 2.7 g/dL (1.3-4.6); Glomerular Filtration Rate 118.2 mL/min (90-130); Glucose 113 mg/dL (65-115); Osmolality Calculated 292 mOsm/kg (285-295); Potassium 3.5 mmol/L (3.5-5.1); Sodium 140 mmol/L (136-145); Total Bilirubin 0.4 mg/dL (0.15-1.2); Total Protein 7.2 g/dL (6.6-8.7)
[2023-09-13 02:50] LABS: Acetaminophen < 5.0 ug/mL (10-30); Alcohol Level < 10 mg/dL (0-10); HCG, Serum Qual Negative (Negative); Salicylate < 0.3 mg/dL (3-10)
[2023-09-13 02:52] LABS: Add Urine Microscopic? YES; Bilirubin Urine Neg (Negative); Blood Urine Neg (Negative); Glucose Urine UA Norm (Normal); Ketones Urine 1+ (Negative); Leukocyte Esterase Urine Negative (Negative); Nitrate Urine Positive (Negative); Protein Urine Trace (Negative); Specific Gravity, Urine 1.025 (1.005-1.030); Urine Appearance Cloudy (CLEAR); Urine Color Dark Yellow (Yellow); Urobilinogen Urine Neg (Negative); pH Urine 5 (5-7)
[2023-09-13 02:53] VITALS: BP 153/117; PULSE 117; RESP 20; TEMP 36.6; O2SAT 100
[2023-09-13 02:55] LABS: Basophils # 0.1 10^3/uL (0.0-0.1); Basophils % 0.7 %; Eosinophils # 0.1 10^3/uL (0.0-0.8); Eosinophils % 1.7 %; Hematocrit 35.5 % (36-47); Lymphocytes # 2.6 10^3/uL (0.8-4.8); Lymphocytes % 35.7 %; Mean Corpuscular HGB Conc 33.5 g/dL (30-55); Mean Corpuscular Hemoglobin 29.2 pg (27-33); Mean Corpuscular Volume 87.2 fl (85-98); Monocytes # 0.7 10^3/uL (0.2-0.9); Monocytes % 9.2 %; Neutrophils # 3.76 10^3/uL (1.8-7.7); Neutrophils % 52.4 %; Nucleated Red Blood Cells % 0 %; Platelet Count 300 10^3/cmm (157-399); Red Blood Count 4.07 10^6/uL (3.85-5.65); Red Cell Distribution Width 13.3 % (12.1-15.1); White Blood Count 7.17 10^3/uL (3.29-11.43)
[2023-09-13 03:11] LABS: Add Urine Culture? Yes; Amorphous Sediment Urine 2+ /hpf; Bacteria Urine 3+ /hpf; RBC Urine 0-4 /hpf (0-2); WBC Urine 0-4 /hpf (0-5)
[2023-09-13 03:12] LABS: Amphetamines Screen Urine Positive (Negative); Barbiturates Screen Urine Negative (Negative); Benzodiazepines Screen Urine Negative (Negative); Cocaine Screen Urine Negative (Negative); Opiate Screen Urine Negative (Negative); PCP Screen Urine Negative (Negative); THC Screen Urine Negative (Negative)
--- NOTE | 2023-09-13 03:24 | PC.NURSE ---
Pt arrived to NPU w/security and RN at side. Pt is hysterical requesting food and drink, as well as for staff to call the longterm. By the time this nurses attempted to complete the patients assessment pt was somnolent and unable to stay awake to complete totally assessment. Pt was administered Ativan and haldol in ER prior to arrival to unit. Will attempt to finish assessment when patient is more coherent.
[2023-09-13 06:00] VITALS: RESP 16
--- NOTE | 2023-09-13 10:14 | PC.OT ---
OT EVALUATION ATTEMPTED; PATIENT IS SLEEPING SOUNDLY AND DOES NOT AWAKEN. WILL ATTEMPT AGAIN TOMORROW.
[2023-09-13 14:00] VITALS: BP 121/87; PULSE 91; RESP 14; TEMP 36.7; O2SAT 100
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
[2023-09-13 20:28] VITALS: BP 102/66; PULSE 60; RESP 15; O2SAT 98
--- NOTE | 2023-09-14 09:31 | PC.NURSE ---
limited shift assessment, refusing to answer questions asked of her, stated she just wants to go back to [facility]
[2023-09-14] MEDS: hyDROXYzine 25 mg Capsule 50 MG PO (10:38)
[2023-09-14 14:00] VITALS: BP 104/67; PULSE 99; RESP 16; TEMP 36.8; O2SAT 98
--- NOTE | 2023-09-14 19:23 | P.NPUPN_ITS ---
Subjective NPU 2 Subjective: Patient is 27-year-old white female admitted with reports of depressed mood and suicidal thoughts with recent relapse back on methamphetamine. She continued to endorse depression. She had endorsed history of opiate addiction although she appeared to have no clear opiate withdrawal symptoms. She had continued to isolate herself on the milieu and spent much of the day lying in bed. There were no acute changes reported or appreciated today. She had endorsed continued feelings of hopelessness. Mental Status Exam 2 MSE Comments: 27-year-old white female disheveled appe arance , poor hygiene, and poor eye contact with multiple tattoos on her body. There was significant psychomotor retardation present. Her gait was steady. Her speech was steady with diminished rate and normal volume. She appeared in mild to moderate distress. Her mood was described as depressed. Her affect was restricted in range and mood-congruent. Her thought process was linear and logical. Her thought content showed evidence of suicidal ideation with no active plan endorsed. She denied any homicidal ideation. She endorsed hearing multiple voices but did not appear to be responding internal stimuli. There was no clear evidence of delusional thinking. She was alert and oriented to person and place but not date or month. Her insight was poor. Her judgment is limited. Her impulse control is poor as well. Her recent and remote memory appeared impaired. Vitals/I&O/Wt Last Vital Signs Temp 98.3 F 09/14/23 14:00 Pulse 99 09/14/23 14:00 Resp 16 09/14/23 14:00 BP 104/67 09/14/23 14:00 Pulse Ox 98 09/14/23 14:00 O2 Del Method Room Air 09/14/23 14:00 Weight last 48 hrs Weight 54.431 kg Data NPU 09/13/23 02:25 09/13/23 02:25 Micro: Microbiology 09/13/23 02:09 Urine Culture - Preliminary Urine,Clean Catch Gram Negative Rods Microbiology 09/13/23 02:09 Urine,Clean Catch Urine Culture - Preliminary Gram Negative Rods A&P Assessment and plan (1) Unspecified psychosis: (2) Depression with suicidal ideation: (3) Methamphetamine abuse: Plan This is a 27 year old with polysubstance dependence positive for amphetamine reporting hallucinations and suicidality. Plan: 1. Continue Abilify 5mg daily and add remeron 15mg at night to target depression. 2. Continue every 15 minute checks for safety. 3. Encourage individual, group and milieu therapies. 4. Encourage sober living treatment after discharge at the highest level of care to which she is willing to commit. 5. Involuntary Hold Information 2 96 Hour Hold: 96 Hour Involuntary Admission: Yes 96 Hour Hold Ending Date: 09/17/23 96 Hour Hold Ending Time: 00:01 Attestations NPU 2 Medical Necessity Statement*: Inpatient hospitalization is medically necessary and deemed to ?be ?the clinically appropriate intervention ?at this time.? We will monitor/initiate medications and make changes as indicated. The patient?s likely length of stay 3-5 days. Coding Level of Care Code Acute Code for Chg Fwd Diagnoses Unspecified psychosis F29 Depression with suicidal ideation F32.A; R45.851 Methamphetamine abuse F15.10
[2023-09-14 20:15] VITALS: BP 105/65; PULSE 98; RESP 16; TEMP 36.7; O2SAT 98
[2023-09-14 20:26] VITALS: BP 98/67; PULSE 86; RESP 18; TEMP 36.7; O2SAT 100
[2023-09-14] MEDS: mirtazapine 15 mg Tablet PO (20:27)
[2023-09-15 06:00] VITALS: RESP 17
[2023-09-15] MEDS: ARIPiprazole 10 mg Tablet 5 MG PO (08:36)
[2023-09-15 14:00] VITALS: BP 119/75; PULSE 105; RESP 17; TEMP 36.6; O2SAT 98
[2023-09-15] MEDS: buprenorphine-naloxone 4-1 mg Film 2 EACH SUBLINGUAL ×2 (14:23→17:29)
--- NOTE | 2023-09-15 14:42 | P.NPUPN_ITS ---
Subjective NPU 2 Subjective: Patient is 27-year-old white female admitted with reports of depressed mood and suicidal thoughts with recent relapse back on methamphetamine. She had reported that she had been on methadone for several months prior to going to [facility] at which time she was pulled off of methadone until she restarted methadone approximately 1 week ago. She reports her last methadone use was 4 days ago and reported having significant opiate withdrawal. She had reported feeling sick and reported feeling irritable and reported that she felt like her skin had something crawling on it. She had appeared somewhat isolative on the milieu. She had continued to endorse depression. She appeared understand that she would likely need to go back to [facility] after the completion of this hospitalization. She had endorsed some feelings of hopelessness. She reported low energy and low motivation. She had reported feeling less fatigued but stated that she continued to feel irritable and [place] without any methadone. Mental Status Exam 2 MSE Comments: 27-year-old white female disheveled appe arance , poor hygiene, and poor eye contact with multiple tattoos on her body. There was significant psychomotor retardation present. Her gait was steady. Her speech was steady with diminished rate and normal volume. She appeared in mild to moderate distress. Her mood remained depressed. Her affect was restricted in range and mood- congruent. Her thought process was linear and logical. Her thought content showed passive suicidal ideation with no active plan endorsed. She denied any homicidal ideation. She did not appear to be responding to internal stimuli. There was no clear evidence of delusional thinking. She was alert and oriented to person and place but not date or month. Her insight was poor. Her judgment is limited. Her impulse control is poor as well. Her recent and remote memory appeared impaired. Vitals/I&O/Wt Last Vital Signs Temp 97.9 F 09/15/23 14:00 Pulse 105 H 09/15/23 14:00 Resp 17 09/15/23 14:00 BP 119/75 09/15/23 14:00 Pulse Ox 98 09/15/23 14:00 O2 Del Method Room Air 09/14/23 14:00 Data NPU 09/13/23 02:25 09/13/23 02:25 Micro: Microbiology 09/13/23 02:09 Urine Culture - Final Urine,Clean Catch Escherichia coli Microbiology 09/13/23 02:09 Urine,Clean Catch Urine Culture - Final Escherichia coli A&P Assessment and plan (1) Unspecified psychosis: (2) Depression with suicidal ideation: (3) Methamphetamine abuse: (4) Opioid dependence: Plan This is a 27 year old with polysubstance dependence positive for amphetamine reporting hallucinations and suicidality. Plan: 1. Continue Abilify 5mg daily and continue remeron 15mg at night to target depression. Start Suboxone 8mg/2mg bid to target opioid dependence. 2. Continue every 15 minute checks for safety. 3. Encourage individual, group and milieu therapies. 4. Encourage sober living treatment after discharge at the highest level of care to which she is willing to commit. 5. Involuntary Hold Information 2 96 Hour Hold: 96 Hour Involuntary Admission: Yes 96 Hour Hold Ending Date: 09/17/23 96 Hour Hold Ending Time: 00:01 Attestations NPU 2 Medical Necessity Statement*: Inpatient hospitalization is medically necessary and deemed to ?be ?the clinically appropriate intervention ?at this time.? We will monitor/initiate medications and make changes as indicated. The patient?s likely length of stay 1-2 days. Coding Level of Care Code Acute Code for Chg Fwd Diagnoses Unspecified psychosis F29 Depression with suicidal ideation F32.A; R45.851 Methamphetamine abuse F15.10 Opioid dependence F11.20
[2023-09-15] MEDS: nicotine 2 mg Gum BUCCAL (18:07)
[2023-09-15 20:08] VITALS: BP 106/59; PULSE 81; RESP 15; TEMP 37; O2SAT 95
[2023-09-15] MEDS: trazodone 50 mg Tablet PO (20:48)
[2023-09-15] MEDS: mirtazapine 15 mg Tablet PO (20:48)
[2023-09-16 06:00] VITALS: BP 94/60; PULSE 84; RESP 15; TEMP 36.9; O2SAT 93
[2023-09-16] MEDS: OLANZapine 5 mg ODT PO (08:57)
[2023-09-16] MEDS: ARIPiprazole 10 mg Tablet 5 MG PO (08:57)
[2023-09-16] MEDS: buprenorphine-naloxone 4-1 mg Film 2 EACH SUBLINGUAL ×2 (08:57→18:10)
[2023-09-16] MEDS: nicotine 21 mg Patch 1 PATCH TRANSDERMA (09:17)
[2023-09-16] MEDS: haloperidol 5 mg Tablet PO ×2 (09:19→13:31)
--- NOTE | 2023-09-16 13:32 | PC.NURSE ---
Pt presented with Visual and Auditory Hallucinations, nurse administered 5mg Haldol PO. Pt then went to her room to lay down.
[2023-09-16 14:00] VITALS: BP 106/66; PULSE 94; RESP 17; TEMP 36.9; O2SAT 96
--- NOTE | 2023-09-16 18:43 | P.NPUPN_ITS ---
Subjective NPU 2 Subjective: Patient presented today reporting that she is doing okay. She reports that she has a plan for moving forward. She is going to a rehab on October 04 and that rehab will allow her to continue Suboxone. Her goal is to continue the Suboxone that Dr. Ochoa started or restarted and return to [facility]-way where they will administer it she reports. Then in a couple weeks she will go to rehab and they will continue it as well which she feels is a big part of her recovery. She denies any problems with any of the other medications that were started and we talked about the possibility of discharge tomorrow morning. Mental Status Exam 2 MSE Comments: This is a slender white female in hospital scrubs with limited grooming and eye contact. No abnormal movements except for mild psychomotor retardation. Cooperative with exam in mild distress. Speech was slightly decreased rate and volume. Mood described as down in the dumps, affect subdued. Thought process organized. Thought content: Patient denies suicidal or homicidal ideation, there were no delusions reported or noted, she denied any auditory or visual hallucinations. Attention and concentration appear intact and memory appears mostly reliable but none were formally tested. He is alert and oriented x 3. Insight and judgment appear fair impulse control is limited. Vitals/I&O/Wt Last Vital Signs Temp 99.3 F 09/16/23 20:25 Pulse 107 H 09/16/23 20:25 Resp 16 09/16/23 20:25 BP 101/62 09/16/23 20:25 Pulse Ox 95 09/16/23 20:25 O2 Del Method Room Air 09/16/23 20:25 Data NPU 09/13/23 02:25 09/13/23 02:25 A&P Assessment and plan (1) Unspecified psychosis: (2) Depression with suicidal ideation: (3) Methamphetamine abuse: (4) Opioid dependence: Plan This is a 27 year old with polysubstance dependence positive for amphetamine reporting hallucinations and suicidality. Plan: 1. Continue Abilify 5mg daily and continue remeron 15mg at night to target depression. Start Suboxone 8mg/2mg bid to target opioid dependence. 2. Continue every 15 minute checks for safety. 3. Encourage individual, group and milieu therapies. 4. Encourage sober living treatment after discharge at the highest level of care to which she is willing to commit. 5. Will verify that [facility]-way would administer Suboxone before discharge tomorrow. Involuntary Hold Information 2 96 Hour Hold: 96 Hour Involuntary Admission: Yes 96 Hour Hold Ending Date: 09/17/23 96 Hour Hold Ending Time: 00:01 Attestations NPU 2 Medical Necessity Statement*: Inpatient hospitalization is medically necessary and deemed to ?be ?the clinically appropriate intervention ?at this time.? We will monitor/initiate medications and make changes as indicated. The patient?s likely length of stay 1-2 days. Coding Level of Care Code Acute Code for Chg Fwd Diagnoses Unspecified psychosis F29 Depression with suicidal ideation F32.A; R45.851 Methamphetamine abuse F15.10 Opioid dependence F11.20
[2023-09-16] MEDS: acetaminophen 325 mg Tablet 650 MG PO (20:08)
[2023-09-16] MEDS: mirtazapine 15 mg Tablet PO (20:08)
[2023-09-16 20:25] VITALS: BP 101/62; PULSE 107; RESP 16; TEMP 37.4; O2SAT 95
[2023-09-17 06:00] VITALS: BP 99/57; PULSE 91; RESP 15; TEMP 37; O2SAT 95
[2023-09-17] MEDS: buprenorphine-naloxone 4-1 mg Film 2 EACH SUBLINGUAL ×2 (08:40→12:08)
[2023-09-17] MEDS: ARIPiprazole 10 mg Tablet 5 MG PO (08:41)
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
[2023-09-17 09:36] VITALS: BP 99/57; PULSE 91; RESP 15; TEMP 37; O2SAT 95
== END 2023-09-17 12:10 | disposition home or self-care (01) | DRG 881 ==
LOC: ER 02:15 → NP 02:35
PROVIDERS: Admitting Provider Psychiatry & Neurology Psychiatry; Emergency Provider Emergency Medicine; Visit Provider Psychiatry & Neurology Psychiatry
DX: F32.A Depression, unspecified (principal); R45.851 Suicidal ideations; F11.20 Opioid dependence, uncomplicated; F17.210 Nicotine dependence, cigarettes, uncomplicated; F43.10 Post-traumatic stress disorder, unspecified; F41.0 Panic disorder [episodic paroxysmal anxiety]; F15.10 Other stimulant abuse, uncomplicated; Z62.810 Personal history of physical and sexual abuse in childhood; Z62.811 Personal history of psychological abuse in childhood
CPT/HCPCS: 36415; 80053; 80306; 80307; 81001; 84703; 85025; 87077; 87086; 87186; 96372; 97150; 97165; 99285; J0573; J1630; J2060

== ENCOUNTER 2023-10-13 14:29 | Emergency (ER) | payer MEDICAID, SELFPAY ==
[2023-10-13 14:30] VITALS: BP 113/79; PULSE 97; RESP 18; TEMP 37.2; O2SAT 96; BMI 20.1
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
== END 2023-10-13 15:15 | disposition home or self-care (01) ==
PROVIDERS: Emergency Provider Family Medicine
DX: S60.413A Abrasion of left middle finger, initial encounter (principal); Z72.0 Tobacco use; W23.0XXA Caught, crushed, jammed, or pinched between moving objects, initial encounter
CPT/HCPCS: 73130; 73140; 99283

== ENCOUNTER 2024-02-03 23:37 | Emergency (ER) | payer MEDICAID, SELFPAY ==
[2024-02-03 23:38] VITALS: BP 115/69; PULSE 90; RESP 15; TEMP 36.7; O2SAT 98
== END 2024-02-04 00:40 | disposition left against medical advice (07) ==
PROVIDERS: Emergency Provider Nurse Practitioner Family
DX: Z53.21 Procedure and treatment not carried out due to patient leaving prior to being seen by health care provider (principal)

== ENCOUNTER 2024-02-05 18:42 | Emergency (ER) | payer MEDICAID, SELFPAY ==
[2024-02-05 19:15] VITALS: BP 101/62; PULSE 99; RESP 16; TEMP 36.8; O2SAT 100
--- NOTE | 2024-02-05 20:36 | W.ED.DENTAL ---
HPI - Dental/Oral General: Chief complaint: Dental/Oral Stated complaint: facial swelling Time Seen by Provider: 02/05/24 19:03 Source: patient Mode of arrival: ambulatory Limitations: no limitations History of Present Illness: 28-year-old female who states she has been having right-sided facial swelling and right lower dental pain for the last 2 to 3 days. She rates her pain a 6 out of 10 denies any fevers denies difficulty swallowing denies any radiation of the pain denies any neck swelling Associated symptoms: Denies fever(s) Review of Systems Const: Denies: fever(s), chills, body aches or change in appetite Eyes: Denies: blurry vision or eye discomfort ENMT: Reports: dental pain; Denies: throat pain Card: Denies: chest pain Resp: Denies: dyspnea GI: Denies: abdominal pain, nausea, vomiting or diarrhea Musc: Denies: neck pain or back pain Skin/Breast: Denies: rash Neuro: Denies: headache(s) PFS ED PFSH: Medical History Suicidal behavior with attempted self-injury Carbuncle of buttock Trichomonal infection Abdominal pain Fever Social History Smoking and tobacco/nicotine status: current every day tobacco/nicotine user Alcohol intake: former Substance/Drug Use: current Physical Exam Const: COMMON NORMALS: no acute distress, patient oriented x3 and healthy appearing HENMT: COMMON NORMALS: normocephalic and atraumatic HEAD & SCALP: normocephalic and atraumatic OTHER: Tenderness to right lower molar with some swelling no abscess formation poor dentition no trismus handling her secretions well Eye: COMMON NORMALS: Equal, round and reactive pupils present and EOMs intact bilaterally PUPIL: Yes Equal, round and reactive pupils present Neck/C-Spine: COMMON NORMALS: full ROM and supple Chest: COMMONS NORMALS: normal inspection of the chest Resp: COMMON NORMALS: normal respiratory effort Cardio: COMMON NORMALS: regular rate RATE: regular rate Extremity: COMMON NORMALS: normal to inspection and full ROM Neuro: COMMON NORMALS: patient oriented x3, moves all extremities and no focal motor deficits Psych: COMMON NORMALS: mental status grossly normal, Normal thought process present and cooperative THOUGHT PROCESS: Normal thought process present Skin: COMMON NORMALS: no rashes or lesions noted and no wounds GENERAL SKIN EXAM: no rashes or lesions noted Course Vital Signs: Vital signs: Vital Signs Temperature 98.2 F 02/05/24 19:15 Pulse Rate 99 02/05/24 19:15 Respiratory Rate 16 02/05/24 19:15 Blood Pressure 101/62 02/05/24 19:15 Pulse Oximetry 100 02/05/24 19:15 Oxygen Delivery Me thod Room Air 02/05/24 19:15 MDM - Dental/Oral Medical Decision Making Patient presents for dental pain we will start her on Keflex along with Naprosyn she is stable for discharge she is follow-up with PCP and return if worsening she understands agrees to plan. Medical Records I reviewed the patient's medical records. No radiology studies performed this visit Discharge Plan Discharge Patient Disposition: Home Clinical Impression: Pain, dental Condition: Stable Prescriptions: New cephalexin 500 mg capsule 500 mg PO TID 7 Days Qty: 21 0RF Naprosyn 500 mg tablet 500 mg PO BID PRN (Reason: pain) Qty: 20 0RF No Action amoxicillin-pot clavulanate 875-125 mg tablet 1 tab PO BID 10 Days Qty: 20 0RF prazosin 1 mg capsule 1 mg PO QPM Qty: 30 0RF Rx Instructions: Take 1 tab PO at bedtime. May increase to 2 tabs after 3-4 days if needed. Monitor for dizziness, lightheadedness, low blood pressure. trazodone 50 mg Tablet 50 mg PO BEDTIME PRN (Reason: Sleep) 30 Days Qty: 30 1RF mirtazapine 15 mg Tablet 15 mg PO BEDTIME 30 Days Qty: 30 1RF hydroxyzine pamoate 25 mg Capsule 50 mg PO Q6H PRN (Reason: Anxiety) 30 Days Qty: 120 1RF aripiprazole 10 mg Tablet 5 mg PO DAILY 30 Days Qty: 15 1RF Suboxone 8-2 mg film 1 film sublingual BID@08,16 15 Days Qty: 30 1RF Discharge Orders: Discharge ED (Routine); Ordered 02/05/24 Ordered By: Emily Goldman Discharge Diet: Advance as tolerated Discharge Activity: Resume usual activity Patient Instructions: Toothache (ED) Coding Level of Care Code ED Assistant Quality Manager for Chg Candice
[2024-02-05] MEDS: cephALEXin 500 mg Capsule PO (20:41)
[2024-02-05] MEDS: HYDROcodone-acetaminophen 5-325 mg Tablet 1 TAB PO (20:41)
== END 2024-02-05 20:45 | disposition home or self-care (01) ==
PROVIDERS: Emergency Provider Emergency Medicine
DX: K08.89 Other specified disorders of teeth and supporting structures (principal); Z72.0 Tobacco use
CPT/HCPCS: 99283

== ENCOUNTER 2024-04-03 23:48 | Emergency (ER) | payer MEDICAID, SELFPAY ==
[2024-04-03 23:53] VITALS: BP 116/70; PULSE 90; RESP 14; TEMP 37.2; O2SAT 95
--- NOTE | 2024-04-04 00:05 | XRR_ITS ---
PROCEDURE INFORMATION: Exam: XR Chest Exam date and time: 04/04/2024 12:15 AM Age: 28 years old Clinical indication: Pain; Right-sided; Additional info: Right side rib pain cough TECHNIQUE: Imaging protocol: Radiologic exam of the chest. Views: 1 view. COMPARISON: CR XR acute abdomen series [id number] 05/19/2023 2:10 PM FINDINGS: Lungs: No CHF/pulmonary edema. Visible lungs appear essentially clear. Pleural spaces: No visible pneumothorax. No definite pleural fluid. Heart/Mediastinum: Heart size is within normal limits. Bones/joints: No significant acute finding. XR/XR chest 1V portable [id number] IMPRESSION: 1. Essentially unremarkable single view chest. 2. Other findings discussed above.
[2024-04-04 00:51] LABS: Basophils % 0.3 %; Eosinophils # 0.1 10^3/uL (0.0-0.8); Eosinophils % 0.7 %; Hematocrit 32.8 % (36-47); Lymphocytes # 1.2 10^3/uL (0.8-4.8); Lymphocytes % 11.9 %; Mean Corpuscular Hemoglobin 28.2 pg (27-33); Mean Corpuscular Volume 87.9 fl (85-98); Mean Platelet Volume 8.9 fL (7.4-10.4); Monocytes # 1.3 10^3/uL (0.2-0.9); Monocytes % 12.6 %; Neutrophils # 7.61 10^3/uL (1.8-7.7); Neutrophils % 73.8 %; Nucleated Red Blood Cells % 0 %; Platelet Count 302 10^3/cmm (157-399); Red Blood Count 3.73 10^6/uL (3.85-5.65); White Blood Count 10.31 10^3/uL (3.29-11.43)
[2024-04-04] MEDS: sodium chloride 0.9% 1,000 ML 999 ML IV (00:55)
[2024-04-04] MEDS: ketorolac 30 mg/mL INJ 15 MG IVP (00:55)
[2024-04-04] MEDS: orphenadrine 30 mg/mL Inj 2 mL IVP (00:56)
--- NOTE | 2024-04-04 01:07 | ED_ITS ---
Documented by User: ADELITA Carrillo 04/04/24 01:48 HPI - URI/Sore Throat 2 General: Chief Complaint: Upper Respiratory Infection Stated Complaint: right side abd pain also in ribs Time Seen by Provider: 04/04/24 00:11 Source: patient Mode of arrival: ambulatory Limitations: no limitations History of Present Illness: Patient presents emergency department today for evaluation treatment of various symptoms. Patient reports that for the last 5 days she has been walking outside. She complains of right lower rib discomfort-worse with deep breathing as well as myalgias, fatigue, weakness. She is concerned she developed heatstroke a couple days ago and has not gotten back to her normal. She states that she had some vomiting and continues to have headache and bodyaches. She also feels extremely weak. She is tolerating oral intake without difficulty however. She woke up with some upper respiratory symptoms today including nasal congestion. Review of Systems 2 General: Reports: 10 or more systems reviewed and unremarkable except in HPI and below PFSH ED 2 PFSH: Medical History Suicidal behavior with attempted self-injury Carbuncle of buttock Trichomonal infection Abdominal pain Fever Social History Smoking and tobacco/nicotine status: current every day tobacco/nicotine user Alcohol intake: former Substance/Drug Use: current Female Reproductive History: Date of last menstrual period: 04/03/24 Physical Exam 2 Const: COMMON NORMALS: no acute distress, patient oriented x3 and alert Eye: COMMON NORMALS: Equal, round and reactive pupils present, EOMs intact bilaterally and conjunctivae normal CONJUNCTIVA: Yes conjunctivae normal P UPIL: Yes Equal, round and reactive pupils present Neck/C-Spine: COMMON NORMALS: no JVD Lymph: LYMPHATIC: no lymphadenopathy noted Resp: COMMON NORMALS: normal respiratory effort, No retractions and No use of accessory muscles Cardio: COMMON NORMALS: no JVD and regular rate RATE: regular rate : COMMON NORMALS: Yes no CVA tenderness BLADDER/KIDNEY EXAM: Yes no CVA tenderness Back/Pelvis: COMMON NORMALS: no CVA tenderness, thoracic and lumbar spine normal to inspection and thoraco-lumbar ROM normal Extremity: COMMON NORMALS: normal to inspection, full ROM and no pedal edema NARRATIVE EXTREMITY EXAM: Patient is ambulatory and weightbearing here in the emergency department. Neuro: COMMON NORMALS: patient oriented x3 SENSORIUM/ORIENTATION: Yes alert Skin: COMMON NORMALS: no rashes or lesions noted and turgor normal N ARRATIVE SKIN EXAM: Mild sunburn of her upper shoulders noted. GENERAL SKIN EXAM: no rashes or lesions noted and turgor normal Course 2 Vital Signs: Vital signs: Vital Signs Temperature 98.9 F 04/03/24 23:53 Pulse Rate 63 04/04/24 01:26 Respiratory Rate 16 04/04/24 01:26 Blood Pressure 116/70 04/03/24 23:53 Pulse Oximetry 93 04/04/24 01:26 MDM - URI/Sore Throat Medical Decision Making Patient was started on fluids while we wait for lab work. We will check for concerns of dehydration, electrolyte abnormality, or underlying infection. Transfer of care to Dr. Leong at 0145 for continued monitoring and management of this patient. Lab Data 04/04/24 00:47 04/04/24 00:47 Radiology Impressions Chest X-Ray 04/04/24 00:05 IMPRESSION: 1. Essentially unremarkable single view chest. 2. Other findings discussed above. Laboratory Results WBC 10.31 10^3/uL (3.29-11.43) 04/04/24 00:47 RBC 3.73 10^6/uL (3.85-5.65) L 04/04/24 00:47 Hgb 10.50 g/dL (11.27-16.99) L 04/04/24 00:47 Hct 32.8 % (36-47) L 04/04/24 00:47 MCV 87.9 fl (85-98) 04/04/24 00:47 MCH 28.2 pg (27-33) 04/04/24 00:47 MCHC 32.0 g/dL (30-55) 04/04/24 00:47 RDW 16.0 % (12.1-15.1) H 04/04/24 00:47 Plt Count 302 10^3/cmm (157-399) 04/04/24 00:47 MPV 8.9 fL (7.4-10.4) 04/04/24 00:47 Neut % (Auto) 73.8 % 04/04/24 00:47 Lymph % (Auto) 11.9 % 04/04/24 00:47 Lea % (Auto) 12.6 % 04/04/24 00:47 Eos % (Auto) 0.7 % 04/04/24 00:47 Baso % (Auto) 0.3 % 04/04/24 00:47 Neut # (Auto) 7.61 10^3/uL (1.8-7.7) 04/04/24 00:47 Lymph # (Auto) 1.2 10^3/uL (0.8-4.8) 04/04/24 00:47 [place] # (Auto) 1.3 10^3/uL (0.2-0.9) H 04/04/24 00:47 Eos # (Auto) 0.1 10^3/uL (0.0-0.8) 04/04/24 00:47 Baso # (Auto) 0.0 10^3/uL (0.0-0.1) 04/04/24 00:47 Nucleated RBC % (auto) 0 % 04/04/24 00:47 Nucleated RBCs # 0.0 /100WBC 04/04/24 00:47 Sodium 136 mmol/L (136-145) 04/04/24 00:47 Potassium 4.1 mmol/L (3.5-5.1) 04/04/24 00:47 Chloride 99 mmol/L (98-107) 04/04/24 00:47 Carbon Dioxide 28 mmol/L (22-29) 04/04/24 00:47 Anion Gap 13.1 (5-19) 04/04/24 00:47 BUN 11 mg/dL (6-20) 04/04/24 00:47 Creatinine 0.7 mg/dL (0.5-0.9) 04/04/24 00:47 GFR Calculation 98.3 mL/min (90-130) 04/04/24 00:47 Glucose 129 mg/dL (65-115) H 04/04/24 00:47 Calculated Osmolality 283 mOsm/kg (285-295) L 04/04/24 00:47 Calcium 8.4 mg/dL (8.5-10.5) L 04/04/24 00:47 Magnesium 1.9 mg/dL (1.7-2.3) 04/04/24 00:47 Total Bilirubin 0.2 mg/dL (0.15-1.2) 04/04/24 00:47 AST 19 U/L (0-32) 04/04/24 00:47 ALT 23 U/L (0-33) 04/04/24 00:47 Alkaline Phosphatase 221 U/L (35-105) H 04/04/24 00:47 Total Protein 6.4 g/dL (6.6-8.7) L 04/04/24 00:47 Albumin 3.2 g/dL (3.5-5.2) L 04/04/24 00:47 Globulin 3.2 g/dL (1.3-4.6) 04/04/24 00:47 Lipase 7 U/L (13-60) L 04/04/24 00:47 HCG, Qual Negative (Negative) 04/04/24 00:26 Urine Color Yellow (Yellow) 04/04/24 00:26 Urine Appearance Cloudy (CLEAR) A 04/04/24 00: Urine pH 5 (5-7) 04/04/24 00:26 Ur Specific [place] 1.010 (1.005-1.030) 04/04/24 00: Urine Protein Neg (Negative) 04/04/24 00: Urine Glucose (UA) Norm (Normal) 04/04/24 00: Urine Ketones Negative (Negative) 04/04/24 00: Urine Blood 3+ (Negative) H 04/04/24 00: Urine Nitrate Negative (Negative) 04/04/24 00: Urine Bilirubin Neg (Negative) 04/04/24 00: Urine Urobilinogen Neg mg/dL (Negative) 04/04/24 00:26 Ur Leukocyte Esterase 1+ (Negative) H 04/04/24 00:26 Urine RBC 21-50 /hpf (0-2) 04/04/24 00:26 Urine WBC 5-10 /hpf (0-5) H 04/04/24 00:26 Ur Squamous Epith Cells 15-25 /hpf (0-5) H 04/04/24 00:26 Amorphous Sediment Not Reportable 04/04/24 00: Urine Bacteria 4+ /hpf (NONE) H 04/04/24 00: Urine Mucus 2+ /hpf 04/04/24 00:26 XR interpretation done by ED provider, pending radiology final review (Waiting for final x-ray interpretation as of 144) Discharge Plan Discharge Patient Disposition: Home Clinical Impression: Upper respiratory infection, Acute chest wall pain, Fatigue Condition: Stable Prescriptions: No Action amoxicillin-pot clavulanate 875-125 mg tablet 1 tab PO BID 10 Days Qty: 20 0RF prazosin 1 mg capsule 1 mg PO QPM Qty: 30 0RF Rx Instructions: Take 1 tab PO at bedtime. May increase to 2 tabs after 3-4 days if needed. Monitor for dizziness, lightheadedness, low blood pressure. trazodone 50 mg Tablet 50 mg PO BEDTIME PRN (Reason: Sleep) 30 Days Qty: 30 1RF mirtazapine 15 mg Tablet 15 mg PO BEDTIME 30 Days Qty: 30 1RF hydroxyzine pamoate 25 mg Capsule 50 mg PO Q6H PRN (Reason: Anxiety) 30 Days Qty: 120 1RF aripiprazole 10 mg Tablet 5 mg PO DAILY 30 Days Qty: 15 1RF Suboxone 8-2 mg film 1 film sublingual BID@08,16 15 Days Qty: 30 1RF Naprosyn 500 mg tablet 500 mg PO BID PRN (Reason: pain) Qty: 20 0RF Discharge Orders: Discharge ED (Routine); Ordered 04/04/24 Ordered By: Nii Leong Patient Instructions: Chest Pain - Chest Wall, Upper Respiratory Infection - Adult, Fatigue (ED) Activity Restrictions/Additional Instructions: Your evaluation in the ER that included lab work and x-rays did not show any acute cause of your symptomatology. Is felt he may just be having symptoms of an upper respiratory infection and having rib pain when you cough. You may also overexposed while you been out in the heat. Please try to stay cool. Please drink plenty of fluids. Please follow-up with your family practice physician within the next 7 days for further evaluation and treatment as needed. Coding Level of Care Code ED Metal Forger'S Assistant for Brian Fwchristelle Documented by User: Nii Leong DO 04/04/24 03:04 HPI - URI/Sore Throat 2 General: Chief Complaint: Upper Respiratory Infection Stated Complaint: right side abd pain also in ribs Time Seen by Provider: 04/04/24 00:11 [facility] ED 2 PFSH: Medical History Suicidal behavior with attempted self-injury Carbuncle of buttock Trichomonal infection Abdominal pain Fever Social History Smoking and tobacco/nicotine status: current every day tobacco/nicotine user Alcohol intake: former Substance/Drug Use: current Course 2 Vital Signs: Vital signs: Vital Signs Temperature 98.9 F 04/03/24 23:53 Pulse Rate 63 04/04/24 01:26 Respiratory Rate 16 04/04/24 01:26 Blood Pressure 116/70 04/03/24 23:53 Pulse Oximetry 93 04/04/24 01:26 MDM - URI/Sore Throat Medical Decision Making Patient was started on fluids while we wait for lab work. We will check for concerns of dehydration, electrolyte abnormality, or underlying infection. Transfer of care to Dr. Leong at 0145 for continued monitoring and management of this patient. Patient transferred over to my care at shift change, lab work reviewed chest x- ray reviewed all essentially unremarkable patient be discharged and told to follow-up with her PCP for further evaluation and treatment. Medical Records I reviewed the patient's medical records. Lab Data I reviewed the patient's lab results. 04/04/24 00:47 04/04/24 00:47 Radiology Impressions Chest X-Ray 04/04/24 00:05 IMPRESSION: 1. Essentially unremarkable single view chest. 2. Other findings discussed above. Laboratory Results WBC 10.31 10^3/uL (3.29-11.43) 04/04/24 00:47 RBC 3.73 10^6/uL (3.85-5.65) L 04/04/24 00:47 Hgb 10.50 g/dL (11.27-16.99) L 04/04/24 00:47 Hct 32.8 % (36-47) L 04/04/24 00:47 MCV 87.9 fl (85-98) 04/04/24 00:47 MCH 28.2 pg (27-33) 04/04/24 00:47 MCHC 32.0 g/dL (30-55) 04/04/24 00:47 RDW 16.0 % (12.1-15.1) H 04/04/24 00:47 Plt Count 302 10^3/cmm (157-399) 04/04/24 00:47 MPV 8.9 fL (7.4-10.4) 04/04/24 00:47 Neut % (Auto) 73.8 % 04/04/24 00:47 Lymph % (Auto) 11.9 % 04/04/24 00:47 Lea % (Auto) 12.6 % 04/04/24 00:47 Eos % (Auto) 0.7 % 04/04/24 00:47 Baso % (Auto) 0.3 % 04/04/24 00:47 Neut # (Auto) 7.61 10^3/uL (1.8-7.7) 04/04/24 00:47 Lymph # (Auto) 1.2 10^3/uL (0.8-4.8) 04/04/24 00:47 Lea # (Auto) 1.3 10^3/uL (0.2-0.9) H 04/04/24 00:47 Eos # (Auto) 0.1 10^3/uL (0.0-0.8) 04/04/24 00:47 Baso # (Auto) 0.0 10^3/uL (0.0-0.1) 04/04/24 00:47 Nucleated RBC % (auto) 0 % 04/04/24 00:47 Nucleated RBCs # 0.0 /100WBC 04/04/24 00:47 Sodium 136 mmol/L (136-145) 04/04/24 00:47 Potassium 4.1 mmol/L (3.5-5.1) 04/04/24 00:47 Chloride 99 mmol/L (98-107) 04/04/24 00:47 Carbon Dioxide 28 mmol/L (22-29) 04/04/24 00:47 Anion Gap 13.1 (5-19) 04/04/24 00:47 BUN 11 mg/dL (6-20) 04/04/24 00:47 Creatinine 0.7 mg/dL (0.5-0.9) 04/04/24 00:47 GFR Calculation 98.3 mL/min (90-130) 04/04/24 00:47 Glucose 129 mg/dL (65-115) H 04/04/24 00:47 Calculated Osmolality 283 mOsm/kg (285-295) L 04/04/24 00:47 Calcium 8.4 mg/dL (8.5-10.5) L 04/04/24 00:47 Magnesium 1.9 mg/dL (1.7-2.3) 04/04/24 00:47 Total Bilirubin 0.2 mg/dL (0.15-1.2) 04/04/24 00:47 AST 19 U/L (0-32) 04/04/24 00:47 ALT 23 U/L (0-33) 04/04/24 00:47 Alkaline Phosphatase 221 U/L (35-105) H 04/04/24 00:47 Total Protein 6.4 g/dL (6.6-8.7) L 04/04/24 00:47 Albumin 3.2 g/dL (3.5-5.2) L 04/04/24 00:47 Globulin 3.2 g/dL (1.3-4.6) 04/04/24 00:47 Lipase 7 U/L (13-60) L 04/04/24 00:47 HCG, Qual Negative (Negative) 04/04/24 00: Urine Color Yellow (Yellow) 04/04/24 00: Urine Appearance Cloudy (CLEAR) A 04/04/24 00: Urine pH 5 (5-7) 04/04/24 00:26 Ur Specific [place] 1.010 (1.005-1.030) 04/04/24 00: Urine Protein Neg (Negative) 04/04/24 00: Urine Glucose (UA) Norm (Normal) 04/04/24 00: Urine Ketones Negative (Negative) 04/04/24 00: Urine Blood 3+ (Negative) H 04/04/24 00:26 Urine Nitrate Negative (Negative) 04/04/24 00: Urine Bilirubin Neg (Negative) 04/04/24 00: Urine Urobilinogen Neg mg/dL (Negative) 04/04/24 00:26 Ur Leukocyte Esterase 1+ (Negative) H 04/04/24 00:26 Urine RBC 21-50 /hpf (0-2) 04/04/24 00:26 Urine WBC 5-10 /hpf (0-5) H 04/04/24 00:26 Ur Squamous Epith Cells 15-25 /hpf (0-5) H 04/04/24 00:26 Amorphous Sediment Not Reportable 04/04/24 00:26 Urine Bacteria 4+ /hpf (NONE) H 04/04/24 00:26 Urine Mucus 2+ /hpf 04/04/24 00:26 Discharge Plan Discharge Patient Disposition: Home Clinical Impression: Upper respiratory infection, Acute chest wall pain, Fatigue Condition: Stable Prescriptions: No Action amoxicillin-pot clavulanate 875-125 mg tablet 1 tab PO BID 10 Days Qty: 20 0RF prazosin 1 mg capsule 1 mg PO QPM Qty: 30 0RF Rx Instructions: Take 1 tab PO at bedtime. May increase to 2 tabs after 3-4 days if needed. Monitor for dizziness, lightheadedness, low blood pressure. trazodone 50 mg Tablet 50 mg PO BEDTIME PRN (Reason: Sleep) 30 Days Qty: 30 1RF mirtazapine 15 mg Tablet 15 mg PO BEDTIME 30 Days Qty: 30 1RF hydroxyzine pamoate 25 mg Capsule 50 mg PO Q6H PRN (Reason: Anxiety) 30 Days Qty: 120 1RF aripiprazole 10 mg Tablet 5 mg PO DAILY 30 Days Qty: 15 1RF Suboxone 8-2 mg film 1 film sublingual BID@08,16 15 Days Qty: 30 1RF Naprosyn 500 mg tablet 500 mg PO BID PRN (Reason: pain) Qty: 20 0RF Discharge Orders: Discharge ED (Routine); Ordered 04/04/24 Ordered By: Nii Leong Patient Instructions: Chest Pain - Chest Wall, Upper Respiratory Infection - Adult, Fatigue (ED) Activity Restrictions/Additional Instructions: Your evaluation in the ER that included lab work and x-rays did not show any acute cause of your symptomatology. Is felt he may just be having symptoms of an upper respiratory infection and having rib pain when you cough. You may also overexposed while you been out in the heat. Please try to stay cool. Please drink plenty of fluids. Please follow-up with your family practice physician within the next 7 days for further evaluation and treatment as needed. Coding Level of Care Code ED Metal Forger'S Assistant for Brian Harvey
[2024-04-04 01:11] LABS: Alanine Aminotransferase 23 U/L (0-33); Albumin Level 3.2 g/dL (3.5-5.2); Alkaline Phosphatase 221 U/L (35-105); Anion Gap 13.1 (5-19); Aspartate Amino Transferase 19 U/L (0-32); Blood Urea Nitrogen 11 mg/dL (6-20); Calcium 8.4 mg/dL (8.5-10.5); Carbon Dioxide 28 mmol/L (22-29); Chloride 99 mmol/L (98-107); Creatinine Clr Calc Pharmacy 93.4644; Globulin 3.2 g/dL (1.3-4.6); Glomerular Filtration Rate 98.3 mL/min (90-130); Glucose 129 mg/dL (65-115); Lipase 7 U/L (13-60); Magnesium 1.9 mg/dL (1.7-2.3); Osmolality Calculated 283 mOsm/kg (285-295); Potassium 4.1 mmol/L (3.5-5.1); Sodium 136 mmol/L (136-145); Total Bilirubin 0.2 mg/dL (0.15-1.2); Total Protein 6.4 g/dL (6.6-8.7)
[2024-04-04 01:26] VITALS: PULSE 63; RESP 16; O2SAT 93
[2024-04-04 01:40] LABS: Bilirubin Urine Neg (Negative); Blood Urine 3+ (Negative); Glucose Urine UA Norm (Normal); Ketones Urine Negative (Negative); Leukocyte Esterase Urine 1+ (Negative); Nitrate Urine Negative (Negative); Protein Urine Neg (Negative); Urine Appearance Cloudy (CLEAR); Urine Color Yellow (Yellow); Urobilinogen Urine Neg (Negative); pH Urine 5 (5-7)
[2024-04-04 01:41] LABS: Add Urine Culture? No; Add Urine Microscopic? YES; Bacteria Urine 4+ /hpf; Mucus Urine 2+ /hpf; RBC Urine 21-50 /hpf (0-2); Squamous Epithelial Cell Urine 15-25 /hpf (0-5)
[2024-04-04 01:47] LABS: HCG Qualitative Urine. Negative (Negative)
[2024-04-04 02:00] VITALS: PULSE 85; RESP 16; O2SAT 96
[2024-04-04 03:20] VITALS: BP 128/82; PULSE 76; RESP 16; O2SAT 96
== END 2024-04-04 03:25 | disposition home or self-care (01) ==
PROVIDERS: Emergency Medicine; Emergency Provider Physician Assistant
DX: J06.9 Acute upper respiratory infection, unspecified (principal); R07.89 Other chest pain; R53.83 Other fatigue; Z72.0 Tobacco use
CPT/HCPCS: 71045; 80053; 81001; 81025; 83690; 83735; 85025; 96374; 96375; 99284; J1885; J2360; J7030

== ENCOUNTER 2024-11-06 23:53 | Emergency (ER) | payer MEDICAID, SELFPAY ==
[2024-11-06 23:58] VITALS: BP 158/98; PULSE 115; RESP 16; TEMP 36.7; O2SAT 100; BMI 21.9
--- NOTE | 2024-11-07 00:06 | ED_ITS ---
HPI - Female Genitourinary General: Chief complaint: Urogenital-Female Stated complaint: painfull spot on vagina Time Seen by Provider: 11/06/24 23:58 Source: patient Mode of arrival: ambulatory Limitations: no limitations History of Present Illness: Patient is a 29-year-old female who presents the emergency department complaining of vaginal pain for the past few days. Patient states that she thinks she has genital herpes or a staph infection, denies having any new partners, has been with the same partner for the past 3 years. She states severe pain to the vaginal region, as well as discharge and redness. States that she feels nauseous and has been running intermittent fevers. Has not taken her temperature at home, this is subjective. States that she took some of her significant others antibiotics that he was prescribed recently for a staph infection on his arm. Denies any other symptoms at this time. Denies history of STDs. MD elicited complaint: vaginal discharge, pelvic pain and genital rash Onset (ago): day(s) Location of symptoms: external genitalia and vaginal Severity: severe Quality of pain: sharp Consistency: constant Vaginal discharge: purulent Vaginal bleeding: none Associated symptoms: Reports nausea and vaginal discharge; Deny abdominal pain or headache(s) Related Data Previous Rx's Medication Instructions Recorded prazosin 1 mg capsule 1 mg PO QPM #30 caps 08/23/23 aripiprazole 10 mg tablet 5 mg (1/2 x 10 mg) PO DAILY 30 09/16/23 days #15 tabs hydroxyzine pamoate 25 mg capsule 50 mg (2 x 25 mg) PO Q6H PRN 09/16/23 Anxiety 30 days #120 caps mirtazapine 15 mg tablet 15 mg PO BEDTIME 30 days #30 tabs 09/16/23 trazodone 50 mg tablet 50 mg PO BEDTIME PRN Sleep 30 days 09/16/23 #30 tabs buprenorphine 8 mg-naloxone 2 mg 1 film sublingual BID@08,16 15 09/17/23 sublingual film (Suboxone) days #30 ea amoxicillin 875 mg-potassium 1 tab PO BID 10 days #20 tabs 11/05/23 clavulanate 125 mg tablet naproxen 500 mg tablet (Naprosyn) 500 mg PO BID PRN pain #20 tabs 02/05/24 doxycycline hyclate 100 mg tablet 100 mg PO BID 10 days #20 tabs 11/07/24 Allergies Allergy/AdvReac Type Severity Reaction Status Date / Time ciprofloxacin Allergy Unknown Verified 11/07/24 00:07 codeine Allergy ALGY-Hives Verified 11/07/24 00:07 tramadol Allergy Unknown Verified 11/07/24 00:07 Review of Systems General: Reports: 10 or more systems reviewed and unremarkable except in HPI and below Const: Reports: fever(s) (Subjective); Denies: chills, change in appetite, change in weight or diaphoresis ENMT: Denies: throat pain or hoarseness Card: Denies: chest pain, palpitations or lightheadedness Resp: Denies: dyspnea, productive cough or wheezing GI: Reports: nausea; Denies: abdominal pain, vomiting, diarrhea, constipation, bloating, change in stool character or hematochezia : Reports: vaginal discharge, pelvic pain and other (Vaginal pain/redness); Denies: flank pain, difficulty voiding, dysuria, urinary frequency or urinary urgency Musc: Denies: neck pain or back pain Skin/Breast: Denies: rash or new lesions Neuro: Denies: headache(s) or dizziness PFSH ED PFSH: Medical History Suicidal behavior with attempted self-injury Carbuncle of buttock Trichomonal infection Abdominal pain Fever Social History Smoking and tobacco/nicotine status: current every day tobacco/nicotine user Alcohol intake: former Substance/Drug Use: current Physical Exam Const: COMMON NORMALS: average body habitus, no limitations and well nourished GENERAL APPEARANCE: cooperative and anxious ORIENTATION/CONSCIOUSNESS: Yes awake Eye: COMMON NORMALS: Equal, round and reactive pupils present, EOMs intact bilaterally, conjunctivae normal and normal visual larios by confrontation CONJUNCTIVA: Yes conjunctivae normal PUPIL: Yes Equal, round and reactive pupils present Neck/C-Spine: COMMON NORMALS: full ROM, supple and no JVD Resp: COMMON NORMALS: normal respiratory effort, No retractions, No use of accessory muscles and clear to auscultation bilaterally AUSCULTATION: clear to auscultation bilaterally, no crackles, no rales, no rhonchi and no wheezes Cardio: COMMON NORMALS: no JVD, regular rate, regular rhythm, S1 normal heart sound present, S2 normal heart sound present, No gallops present (Cardio), No clicks present (Cardio), No murmurs present (Cardio), No rub (Cardio) and Peripheral pulses 2+ throughout RATE: regular rate RHYTHM: regular rhythm HEART SOUNDS: S1 normal heart sound present and S2 normal heart sound present PERIPHERAL PULSES: Peripheral pulses 2+ throughout GI: COMMON NORMALS: Normal to inspection, nondistended, normoactive bowel sounds present, Soft to palpation, non-tender, No hepatosplenomegaly present and no masses AUSCULTATION: Yes normoactive bowel sounds PALPATION: Yes Soft to palpation, No Guarding due to palpation present (GI), No Rigid due to palpation and Yes No hepatosplenomegaly present RECTAL EXAM: deferred : OTHER: Pelvic exam, patient draped appropriately and visual examination of the vagina shows erythema and mild edema to the left labia majora. There is no discharge at this time. Severe tenderness to palpation to this area. No vesicular lesions or evidence of cyst. Extremity: COMMON NORMALS: normal to inspection and full ROM Course Vital Signs: Vital signs: Vital Signs Temperature 98.1 F 11/06/24 23:58 Pulse Rate 115 H 11/06/24 23:58 Respiratory Rate 16 11/06/24 23:58 Blood Pressure 158/98 11/06/24 23:58 Pulse Oximetry 100 11/06/24 23:58 Oxygen Delivery Me thod Room Air 11/06/24 23:58 MDM - Female Medical Decision Making Patient has clinical signs of vulvovaginitis on exam, she had initially reported discharge but then later told me during pelvic exam that she had not noticed any discharge. This does not clinically appear like herpes simplex, appears to be external and we will treat with antibiotics. Urinalysis pending prior to discharge as she will be started on antibiotics anyways, and chlamydia gonorrhea also pending. Informed her to follow-up with primary care, proper hygiene discussed, and to return with any new or worsening. Discussed case with Dr. Dalton. No radiology studies performed this visit Discharge Plan Discharge Patient Disposition: Home Clinical Impression: Vulvovaginitis Condition: Stable Prescriptions: New doxycycline hyclate 100 mg tablet 100 mg PO BID 10 Days Qty: 20 0RF No Action amoxicillin-pot clavulanate 875-125 mg tablet 1 tab PO BID 10 Days Qty: 20 0RF prazosin 1 mg capsule 1 mg PO QPM Qty: 30 0RF Rx Instructions: Take 1 tab PO at bedtime. May increase to 2 tabs after 3-4 days if needed. Monitor for dizziness, lightheadedness, low blood pressure. trazodone 50 mg Tablet 50 mg PO BEDTIME PRN (Reason: Sleep) 30 Days Qty: 30 1RF mirtazapine 15 mg Tablet 15 mg PO BEDTIME 30 Days Qty: 30 1RF hydroxyzine pamoate 25 mg Capsule 50 mg PO Q6H PRN (Reason: Anxiety) 30 Days Qty: 120 1RF aripiprazole 10 mg Tablet 5 mg PO DAILY 30 Days Qty: 15 1RF Suboxone 8-2 mg film 1 film sublingual BID@08,16 15 Days Qty: 30 1RF Naprosyn 500 mg tablet 500 mg PO BID PRN (Reason: pain) Qty: 20 0RF Discharge Orders: Discharge ED (Routine); Ordered 11/07/24 Ordered By: Richard Tomas Patient Instructions: Vulvovaginitis - Adult Activity Restrictions/Additional Instructions: Take doxycycline as prescribed. Proper hygiene. Tylenol/ibuprofen for pain. Follow-up with primary care. Return with any persistent fevers, abdominal pain, vaginal discharge, or other concerning symptoms. Coding Level of Care Code ED Environmental Engineering Manager for Brian Harvey
[2024-11-07 00:20] VITALS: BP 158/98; PULSE 115; O2SAT 100
[2024-11-07] MEDS: cefTRIAXone 1,000 MG in water for injection-sterile 2.1 ML 1 MG IM (00:35)
[2024-11-07] MEDS: azithromycin 250 mg Tablet 1000 MG PO (00:36)
[2024-11-07] MEDS: doxycycline 100 mg Tablet PO (00:36)
[2024-11-07 00:39] LABS: Bilirubin Urine Negative (Negative); Blood Urine Trace (Negative); Glucose Urine UA Negative (Normal); Ketones Urine Negative (Negative); Leukocyte Esterase Urine 2+ (Negative); Nitrate Urine Negative (Negative); Protein Urine Trace (Negative); Urine Appearance Cloudy (CLEAR); Urine Color Yellow (Yellow); pH Urine 5.5 (5-7)
[2024-11-07 00:43] LABS: Add Urine Microscopic? YES; Bacteria Urine 4+ /hpf; Hyaline Casts Urine 2.05 /lpf; WBC Urine >100 /hpf (0-5)
[2024-11-07 00:46] LABS: Add Urine Culture? Yes; Specific Gravity, Urine 1.035 (1.005-1.030)
[2024-11-07 00:48] VITALS: BP 108/71; PULSE 115; O2SAT 97
[2024-11-07 02:20] LABS: Chlamydia Trachomatis NOT DETECTED; Neisseria Gonorrhea NOT DETECTED
== END 2024-11-07 00:49 | disposition home or self-care (01) ==
PROVIDERS: Emergency Provider Physician Assistant
DX: N76.0 Acute vaginitis (principal); Z72.0 Tobacco use
CPT/HCPCS: 81001; 87086; 87491; 87591; 96372; 99284; J0696; Q0144

== ENCOUNTER 2025-03-12 00:23 | Emergency (ER) | payer SELFPAY ==
[2025-03-12 00:34] VITALS: BP 114/92; PULSE 113; RESP 20; TEMP 37.3; O2SAT 97; BMI 21.9
--- NOTE | 2025-03-12 00:38 | ECG_ITS ---
[facility] Test Date: 2025-03-12 Pat Name: Noé Hoyos Department: Room: Gender: Female Emg Technician: : 1995 Requested By: Jared Souza Order Number: [id number] Reading MD: GIOVANI ZAMORA Measurements Intervals [place] Rate: 117 P: 57 GA: 122 QRS: 72 QRSD: 77 T: 68 QT: 301 QTc: 420 Interpretive Statements SINUS TACHYCARDIA NONSPECIFIC ST & T-WAVE ABNORMALITY ABNORMAL RHYTHM ECG Compared to ECG 01/12/2021 00:01:04 T-wave abnormality now present Electronically Signed On 03-12-2025 19:03:38 CDT by GIOVANI ZAMORA [id number] [id number]
--- NOTE | 2025-03-12 00:51 | XRR_ITS ---
PROCEDURE INFORMATION: Exam: XR Chest Exam date and time: 03/12/2025 12:56 AM Age: 29 years old Clinical indication: Chest pressure; C/O chest pain TECHNIQUE: Imaging protocol: Radiologic exam of the chest. Views: 1 view. COMPARISON: CR XR chest 1V portable [id number] 04/04/2024 12:15 AM FINDINGS: Lungs: Unremarkable. No consolidation. Pleural spaces: Unremarkable. No pleural effusion. No pneumothorax. Heart/Mediastinum: Unremarkable. No cardiomegaly. Bones/joints: Unremarkable. XR/XR chest 1V portable [id number] IMPRESSION: No acute findings.
--- NOTE | 2025-03-12 00:55 | ED_ITS ---
HPI - Chest Pain 2 General: Chief Complaint: Chest Pain Stated Complaint: Head and Chest Hurting\Fever Time Seen by Provider: 03/12/25 00:35 History of Present Illness: 29-year-old female in with generally not feeling well. She complains of a headache chest pain overall muscle aches and pains. Patient has had this previously and she says that she was septic. She is unsure exactly what caused the sepsis. She has been having some urinary complaints over the past several days specifically she has had some urinary incontinence. She reports other nonspecific dysuria. She has been using methamphetamines as well as she takes methadone. The patient denies using IV drugs. The patient reports her symptoms onset about 24 hours earlier. No skin rash. She does report mild intermittent chest pain. She feels like she was running a fever at home but here her temperature was 99.1. Related Data Previous Rx's ?Medication ?Instructions ?Recorded prazosin 1 mg capsule 1 mg PO QPM #30 caps 3 aripiprazole 10 mg tablet 5 mg (1/2 x 10 mg) PO DAILY 30 09/16/23 days #15 tabs hydroxyzine pamoate 25 mg capsule 50 mg (2 x 25 mg) PO Q6H PRN 09/16/23 Anxiety 30 days #120 caps mirtazapine 15 mg tablet 15 mg PO BEDTIME 30 days #30 tabs 09/16/23 trazodone 50 mg tablet 50 mg PO BEDTIME PRN Sleep 3 0 days 09/16/23 #30 tabs naproxen 500 mg tablet (Naprosyn) 500 mg PO BID PRN pa in #20 tabs 02/05/24 cephalexin 500 mg capsule 500 mg PO Q8H 7 days #21 cap s 03/12/25 Allergies Allergy/AdvReac Type Severity Reaction Status Date / Time ciprofloxacin Allergy Unknown Verified 11/07/24 00:07 codeine Allergy ALGY-Hives Verified 11/07/24 00:07 tramadol Allergy Unknown Verified 11/07/24 00:07 Review of Systems 2 General: Reports: 10 or more systems reviewed and unremarkable except in HPI and below PFSH ED 2 PFSH: Medical History Suicidal behavior with attempted self-injury Carbuncle of buttock Trichomonal infection Abdominal pain Fever Social History Smoking and tobacco/nicotine status: current every day tobacco/nicotine user Alcohol intake: former Substance/Drug Use: current Female Reproductive History: Date of last menstrual period: 03/11/25 Physical Exam 2 Const: COMMON NORMALS: no limitations and alert HENMT: COMMON NORMALS: normocephalic, TM's normal bilaterally and moist oral mucous membranes HEAD & SCALP: normocephalic TYMPANIC MEMBRANE: TM's normal bilaterally Neck/C-Spine: COMMON NORMALS: full ROM and no meningeal signs Chest: COMMONS NORMALS: normal palpation of entire chest wall Resp: COMMON NORMALS: normal respiratory effort and No use of accessory muscles Cardio: COMMON NORMALS: regular rhythm RATE: tachycardic RHYTHM: regular rhythm GI: COMMON NORMALS: Normal to inspection, nondistended, normoactive bowel sounds present Neuro: SENSORIUM/ORIENTATION: Yes alert MENINGEAL SIGNS: Yes no meningeal signs Skin: COMMON NORMALS: no rashes or lesions noted, turgor normal, no petechiae and no mottling GENERAL SKIN EXAM: no rashes or lesions noted and turgor normal Course 2 Vital Signs: Vital signs: Vital Signs Temperature 99.1 F 03/12/25 00:34 Pulse Rate 101 H 03/12/25 02:00 Respiratory Rate 18 03/12/25 02:00 Blood Pressure 124/80 03/12/25 01:30 Pulse Oximetry 97 03/12/25 02:00 Oxygen Delivery Me thod Room Air 03/12/25 02:00 MDM - Chest Pain Medical Decision Making Discussed differential diagnosis it does include sepsis potentially from a urinary tract source. Will check routine labs evaluation give her Toradol IV fluids and do serial reexaminations. Lab Data Patient did have a elevated white blood cell count but her vital signs improved with fluids and treatment I offered her admission versus home treatment and she opted to be discharged home she said that she be able to [employer] the antibiotics tomorrow will drink fluids and I advised her to avoid illicit drugs and to take her medications as directed if she was worse instead of better she should return. 03/12/25 00:45 03/12/25 00:45 Radiology Impressions Chest X-Ray 03/12/25 00:51 IMPRESSION: No acute findings. Laboratory Results WBC 18.52 10^3/uL (3.29-11.43) H 03/12/25 00:45 RBC 4.47 10^6/uL (3.85-5.65) 03/12/25 00:45 Hgb 12.30 g/dL (11.27-16.99) 03/12/25 00:45 Hct 38.1 % (36-47) 03/12/25 00:45 MCV 85.2 fl (85-98) 03/12/25 00:45 MCH 27.5 pg (27-33) 03/12/25 00:45 MCHC 32.3 g/dL (30-55) 03/12/25 00:45 RDW 13.5 % (12.1-15.1) 03/12/25 00:45 Plt Count 313 10^3/cmm (157-399) 03/12/25 00:45 MPV 9.0 fL (7.4-10.4) 03/12/25 00:45 Neut % (Auto) 86.4 % 03/12/25 00:45 Lymph % (Auto) 4.6 % 03/12/25 00:45 [place] % (Auto) 5.9 % 03/12/25 00:45 Eos % (Auto) 0.5 % 03/12/25 00:45 Baso % (Auto) 0.2 % 03/12/25 00:45 Neut # (Auto) 15.98 10^3/uL (1.8-7.7) H 03/12/25 00:45 Lymph # (Auto) 0.9 10^3/uL (0.8-4.8) 03/12/25 00:45 [place] # (Auto) 1.1 10^3/uL (0.2-0.9) H 03/12/25 00:45 Eos # (Auto) 0.1 10^3/uL (0.0-0.8) 03/12/25 00:45 Baso # (Auto) 0.0 10^3/uL (0.0-0.1) 03/12/25 00:45 Nucleated RBC % (auto) 0 % 03/12/25 00:45 Nucleated RBCs # 0.0 /100WBC 03/12/25 00:45 Sodium 133 mmol/L (136-145) L 03/12/25 00:45 Potassium 4.3 mmol/L (3.5-5.1) 03/12/25 00:45 Chloride 96 mmol/L (98-107) L 03/12/25 00:45 Carbon Dioxide 24 mmol/L (22-29) 03/12/25 00:45 Anion Gap 17.3 (5-19) 03/12/25 00:45 BUN 12 mg/dL (6-20) 03/12/25 00:45 Creatinine 0.7 mg/dL (0.5-0.9) 03/12/25 00:45 GFR Calculation 97.6 mL/min (90-130) 03/12/25 00:45 Glucose 129 mg/dL (65-115) H 03/12/25 00:45 Calculated Osmolality 277 mOsm/kg (285-295) L 03/12/25 00:45 Lactic Acid 1.2 mmol/L (0.5-2.2) 03/12/25 00:45 Calcium 9.0 mg/dL (8.5-10.5) 03/12/25 00:45 Total Bilirubin 0.3 mg/dL (0.15-1.2) 03/12/25 00:45 AST 19 U/L (0-32) 03/12/25 00:45 ALT 17 U/L (0-33) 03/12/25 00:45 Alkaline Phosphatase 73 U/L (35-105) 03/12/25 00:45 Creatine Kinase 77 U/L (26-192) 03/12/25 00:45 Troponin T Baseline < 6 ng/L (0-10) 03/12/25 00:45 NT-Pro-B Natriuret Pep 307 pg/mL (0-125) H 03/12/25 00:45 Total Protein 6.8 g/dL (6.6-8.7) 03/12/25 00:45 Albumin 4.2 g/dL (3.5-5.2) 03/12/25 00:45 Globulin 2.6 g/dL (1.3-4.6) 03/12/25 00:45 Lipase 10 U/L (13-60) L 03/12/25 00:45 HCG, Qual Negative (Negative) 03/12/25 00:45 Urine Color Yellow (Yellow) 03/12/25 00:45 Urine Appearance Cloudy (CLEAR) A 03/12/25 00:45 Urine pH 7.5 (5-7) 03/12/25 00:45 Ur Specific Sulphur 1.021 (1.005-1.030) 03/12/25 00:45 Urine Protein 1+ (Negative) A 03/12/25 00:45 Urine Glucose (UA) Negative (Normal) 03/12/25 00:45 Urine Ketones Negative (Negative) 03/12/25 00:45 Urine Blood Negative (Negative) 03/12/25 00:45 Urine Nitrate Positive (Negative) A 03/12/25 00:45 Urine Bilirubin Negative (Negative) 03/12/25 00:45 Urine Urobilinogen 1.0 mg/dL (Negative) 03/12/25 00:45 Ur Leukocyte Esterase Trace (Negative) A 03/12/25 00:45 Urine RBC 0-2 /hpf (0-2) 03/12/25 00:45 Urine WBC 11-20 /hpf (0-5) H 03/12/25 00:45 Ur Squamous Epith Cells 0-5 /hpf (0-5) 03/12/25 00:45 Amorphous Sediment Not Reportable 03/12/25 00:45 Urine Bacteria Exceeds /hpf (NONE) 03/12/25 00:45 Hyaline Casts 0-4 /lpf H 03/12/25 00:45 Urine Opiates Screen Negative ng/mL (Negative) 03/12/25 00:45 Ur Barbiturates Screen Negative ng/mL (Negative) 03/12/25 00:45 Ur Phencyclidine Scrn Negative ng/mL (Negative) 03/12/25 00:45 Ur Amphetamines Screen Positive ng/mL (Negative) H 03/12/25 00:45 U Benzodiazepines Scrn Negative ng/mL (Negative) 03/12/25 00:45 Urine Cocaine Screen Negative ng/mL (Negative) 03/12/25 00:45 U Marijuana (THC) Screen Negative ng/mL (Negative) 03/12/25 00:45 Ethyl Alcohol < 10 mg/dL (0-10) 03/12/25 00:45 No radiology studies performed this visit ED provider radiology interpretation(s): None Discharge Plan Discharge Patient Disposition: Home Clinical Impression: Pyelonephritis Opioid dependence Qualifiers: Substance use status: uncomplicated Qualified Code(s): F11.20 - Opioid dependence, uncomplicated Condition: Stable Prescriptions: New cephalexin 500 mg capsule 500 mg PO Q8H 7 Days Qty: 21 0RF Continued prazosin 1 mg capsule 1 mg PO QPM Qty: 30 0RF Rx Instructions: Take 1 tab PO at bedtime. May increase to 2 tabs after 3-4 days if needed. Monitor for dizziness, lightheadedness, low blood pressure. trazodone 50 mg Tablet 50 mg PO BEDTIME PRN (Reason: Sleep) 30 Days Qty: 30 1RF mirtazapine 15 mg Tablet 15 mg PO BEDTIME 30 Days Qty: 30 1RF hydroxyzine pamoate 25 mg Capsule 50 mg PO Q6H PRN (Reason: Anxiety) 30 Days Qty: 120 1RF aripiprazole 10 mg Tablet 5 mg PO DAILY 30 Days Qty: 15 1RF Naprosyn 500 mg tablet 500 mg PO BID PRN (Reason: pain) Qty: 20 0RF Discontinued amoxicillin-pot clavulanate 875-125 mg tablet 1 tab PO BID 10 Days Qty: 20 0RF buprenorphine-naloxone [Suboxone] 8-2 mg film 1 film sublingual BID@08,16 15 Days Qty: 30 1RF Discharge Orders: Discharge ED (Routine); Ordered 03/12/25 Ordered By: Jared Souza Discharge Diet: Advance as tolerated Discharge Activity: Resume usual activity Patient Instructions: Opioid Safety, Pain Management Activity Restrictions/Additional Instructions: 1. Push fluids and take prescription as directed. Can use ibuprofen and/or Tylenol for discomfort. 2. Follow-up with primary care for recheck and urine culture next week. 3. Return to the emergency department for new or worsening symptoms including inability to keep the antibiotic down, vomiting, high fever or generalized worsening. Print Language: Slovenian Coding Level of Care Code ED Voltage Regulator Assembler for Brian Harvey
[2025-03-12 01:00] VITALS: BP 123/80; PULSE 123; RESP 15; O2SAT 98
[2025-03-12 01:03] LABS: Basophils % 0.2 %; Eosinophils # 0.1 10^3/uL (0.0-0.8); Eosinophils % 0.5 %; Hematocrit 38.1 % (36-47); Lymphocytes # 0.9 10^3/uL (0.8-4.8); Lymphocytes % 4.6 %; Mean Corpuscular HGB Conc 32.3 g/dL (30-55); Mean Corpuscular Hemoglobin 27.5 pg (27-33); Mean Corpuscular Volume 85.2 fl (85-98); Monocytes # 1.1 10^3/uL (0.2-0.9); Monocytes % 5.9 %; Neutrophils # 15.98 10^3/uL (1.8-7.7); Neutrophils % 86.4 %; Nucleated Red Blood Cells % 0 %; Platelet Count 313 10^3/cmm (157-399); Red Blood Count 4.47 10^6/uL (3.85-5.65); Red Cell Distribution Width 13.5 % (12.1-15.1); White Blood Count 18.52 10^3/uL (3.29-11.43)
[2025-03-12 01:05] LABS: Bilirubin Urine Negative (Negative); Blood Urine Negative (Negative); Glucose Urine UA Negative (Normal); Ketones Urine Negative (Negative); Leukocyte Esterase Urine Trace (Negative); Nitrate Urine Positive (Negative); Protein Urine 1+ (Negative); Specific Gravity, Urine 1.021 (1.005-1.030); Urine Appearance Cloudy (CLEAR); Urine Color Yellow (Yellow); pH Urine 7.5 (5-7)
[2025-03-12 01:10] LABS: Bacteria Urine EXCEEDS /hpf; Hyaline Casts Urine 0-4 /lpf; RBC Urine 0-2 /hpf (0-2); Squamous Epithelial Cell Urine 0-5 /hpf (0-5)
[2025-03-12 01:11] LABS: Add Urine Culture? Yes
[2025-03-12 01:12] LABS: Amphetamines Screen Urine Positive (Negative); Barbiturates Screen Urine Negative (Negative); Benzodiazepines Screen Urine Negative (Negative); Cocaine Screen Urine Negative (Negative); Opiate Screen Urine Negative (Negative); PCP Screen Urine Negative (Negative); THC Screen Urine Negative (Negative)
[2025-03-12 01:14] LABS: HCG Qualitative Urine. Negative (Negative)
[2025-03-12 01:24] LABS: Troponin(5th) Baseline < 6 ng/L (0-10)
[2025-03-12 01:25] LABS: Lactic Sepsis W/Reflex 1.2 mmol/L (0.5-2.2)
[2025-03-12 01:30] VITALS: BP 124/80; PULSE 113; RESP 16; O2SAT 97
[2025-03-12 01:31] LABS: Alanine Aminotransferase 17 U/L (0-33); Albumin Level 4.2 g/dL (3.5-5.2); Alcohol Level < 10 mg/dL (0-10); Alkaline Phosphatase 73 U/L (35-105); Anion Gap 17.3 (5-19); Aspartate Amino Transferase 19 U/L (0-32); Blood Urea Nitrogen 12 mg/dL (6-20); Carbon Dioxide 24 mmol/L (22-29); Chloride 96 mmol/L (98-107); Creatine Phosphokinase 77 U/L (26-192); Creatinine Clr Calc Pharmacy 95.2832; Globulin 2.6 g/dL (1.3-4.6); Glomerular Filtration Rate 97.6 mL/min (90-130); Glucose 129 mg/dL (65-115); Lipase 10 U/L (13-60); NT Pro B Type Natriuretic Pept 307 pg/mL (0-125); Osmolality Calculated 277 mOsm/kg (285-295); Potassium 4.3 mmol/L (3.5-5.1); Sodium 133 mmol/L (136-145); Total Bilirubin 0.3 mg/dL (0.15-1.2); Total Protein 6.8 g/dL (6.6-8.7)
[2025-03-12] MEDS: ketorolac 30 mg/mL INJ 15 MG IVP (01:34)
[2025-03-12] MEDS: cefTRIAXone 1,000 mg SDV 1000 MG IVP (01:58)
[2025-03-12 02:00] VITALS: PULSE 101; RESP 18; O2SAT 97
[2025-03-12 02:49] LABS: Troponin 5 2HR < 6.0 ng/L (0-10); Troponin 5 2HR Delta 0 ABS# (0-10)
--- NOTE | 2025-03-12 02:52 | ECG_ITS ---
[facility] Date: 2025-03-12 Pat Name: Noé Hoyos Department: Room: Gender: Female Director Of Knowledge Management: : 1995 Requested By: Jared Souza Order Number: [id number] Nataly MD: GIOVANI ZAMORA Measurements Intervals [place] Rate: 104 P: 56 CO: 120 QRS: 68 QRSD: 86 T: 70 QT: 327 QTc: 430 Interpretive Statements SINUS TACHYCARDIA ABNORMAL RHYTHM ECG Compared to ECG 03/12/2025 00:32:04 T-wave abnormality no longer present Electronically Signed On 03-12-2025 19:07:33 CDT by GIOVANI ZAMORA [email or web address]/store/[id number]
[2025-03-12 02:59] VITALS: BP 109/65; PULSE 103; RESP 18; TEMP 37.4; O2SAT 96
== END 2025-03-12 03:01 | disposition home or self-care (01) ==
PROVIDERS: Emergency Provider Family Medicine
DX: N12 Tubulo-interstitial nephritis, not specified as acute or chronic (principal)
CPT/HCPCS: 36415; 71045; 80048; 80053; 80306; 80307; 81001; 81025; 82550; 83605; 83690; 83880; 84484; 85025; 87077; 87086; 87186; 93005; 96361; 96374; 96375; 99285; J0696; J1885; J7120

== ENCOUNTER 2025-03-13 15:47 | Emergency (ER) | payer MEDICAID, SELFPAY ==
[2025-03-13 15:50] VITALS: BP 108/72; PULSE 121; RESP 17; TEMP 36.7; O2SAT 97; BMI 21.9
--- NOTE | 2025-03-13 16:23 | W.ED.FEMALGU ---
HPI - Female Genitourinary General: Chief complaint: Urogenital-Female Stated complaint: redness and pain in legs, nausea Time Seen by Provider: 03/13/25 16:09 Source: patient Mode of arrival: ambulatory Limitations: no limitations History of Present Illness: 29-year-old female who was seen here 2 days ago diagnosed with UTI she been on antibiotics states she becomes concerned she seems to have some discoloration to her legs she denies any pain in her legs she is afebrile here denies any vomiting diarrhea denies any severe abdominal pain Associated symptoms: Deny abdominal pain, headache(s) or nausea Related Data Previous Rx's ?Medication ?Instructions ?Recorded prazosin 1 mg capsule 1 mg PO QPM #30 caps 08/23/23 aripiprazole 10 mg tablet 5 mg (1/2 x 10 mg) PO DAILY 30 09/16/23 days #15 tabs hydroxyzine pamoate 25 mg capsule 50 mg (2 x 25 mg) PO Q6H PRN 09/16/23 Anxiety 30 days #120 caps mirtazapine 15 mg tablet 15 mg PO BEDTIME 30 days #30 tabs 09/16/23 trazodone 50 mg tablet 50 mg PO BEDTIME PRN Sleep 30 days 09/16/23 #30 tabs naproxen 500 mg tablet (Naprosyn) 500 mg PO BID PRN pain #20 tabs 02/05/24 cephalexin 500 mg capsule 500 mg PO Q8H 7 days #21 caps 03/12/25 Allergies Allergy/AdvReac Type Severity Reaction Status Date / Time ciprofloxacin Allergy Unknown Verified 11/07/24 00:07 codeine Allergy ALGY-Hives Verified 11/07/24 00:07 tramadol Allergy Unknown Verified 11/07/24 00:07 Review of Systems Const: Denies: fever(s), chills, body aches or change in appetite ENMT: Denies: throat pain or dental pain Card: Denies: chest pain Resp: Denies: dyspnea GI: Denies: abdominal pain, nausea, vomiting or diarrhea : Reports: dysuria Musc: Denies: neck pain or back pain Skin/Breast: Denies: rash Neuro: Denies: headache(s) PFSH ED PFSH: Medical History Suicidal behavior with attempted self-injury Carbuncle of buttock Trichomonal infection Abdominal pain Fever Social History Smoking and tobacco/nicotine status: current every day tobacco/nicotine user Alcohol intake: former Substance/Drug Use: current Physical Exam Const: COMMON NORMALS: no acute distress, patient oriented x3 and healthy appearing HENMT: COMMON NORMALS: normocephalic and atraumatic HEAD & SCALP: normocephalic and atraumatic Neck/C-Spine: COMMON NORMALS: full ROM and supple Chest: COMMONS NORMALS: normal inspection of the chest Resp: COMMON NORMALS: normal respiratory effort Cardio: COMMON NORMALS: regular rate RATE: regular rate GI: COMMON NORMALS: Normal to inspection, nondistended, normoactive bowel sounds present, Soft to palpation, non-tender and no masses PALPATION: Yes Soft to palpation Extremity: COMMON NORMALS: normal to inspection and full ROM Neuro: COMMON NORMALS: patient oriented x3, moves all extremities and no focal motor deficits Psych: COMMON NORMALS: mental status grossly normal, Normal thought process present and cooperative THOUGHT PROCESS: Normal thought process present Skin: COMMON NORMALS: no rashes or lesions noted and no wounds GENERAL SKIN EXAM: no rashes or lesions noted Course Vital Signs: Vital signs: Vital Signs Temperature 98.1 F 03/13/25 15:50 Pulse Rate 121 H 03/13/25 15:50 Respiratory Rate 17 03/13/25 15:50 Blood Pressure 108/72 03/13/25 15:50 Pulse Oximetry 97 03/13/25 15:50 Oxygen Delivery Me thod Room Air 03/13/25 15:50 MDM - Female Medical Decision Making Patient presents here wanting to have her urine rechecked. After shortly arriving she left AGAINST MEDICAL ADVICE I did not get to speak to her Medical Records I reviewed the patient's medical records. No radiology studies performed this visit Discharge Plan Discharge Patient Disposition: Left Against Medical Advice Clinical Impression: Urinary tract infection Condition: Stable Prescriptions: No Action cephalexin 500 mg capsule 500 mg PO Q8H 7 Days Qty: 21 0RF prazosin 1 mg capsule 1 mg PO QPM Qty: 30 0RF Rx Instructions: Take 1 tab PO at bedtime. May increase to 2 tabs after 3-4 days if needed. Monitor for dizziness, lightheadedness, low blood pressure. trazodone 50 mg Tablet 50 mg PO BEDTIME PRN (Reason: Sleep) 30 Days Qty: 30 1RF mirtazapine 15 mg Tablet 15 mg PO BEDTIME 30 Days Qty: 30 1RF hydroxyzine pamoate 25 mg Capsule 50 mg PO Q6H PRN (Reason: Anxiety) 30 Days Qty: 120 1RF aripiprazole 10 mg Tablet 5 mg PO DAILY 30 Days Qty: 15 1RF Naprosyn 500 mg tablet 500 mg PO BID PRN (Reason: pain) Qty: 20 0RF Print Language: Maltese Coding Level of Care Code ED Environmental Engineering Manager for Brian Harvey
--- NOTE | 2025-03-13 16:25 | PC.NURSE ---
PATIENT REQUESTED TO LEAVE AMA BEFORE I WAS ABLE TO ASSESS PATIENT.
== END 2025-03-13 16:29 | disposition left against medical advice (07) ==
PROVIDERS: Emergency Provider Emergency Medicine
DX: N39.0 Urinary tract infection, site not specified (principal); R23.8 Other skin changes; F17.200 Nicotine dependence, unspecified, uncomplicated; Z53.29 Procedure and treatment not carried out because of patient's decision for other reasons
CPT/HCPCS: 99282